=== PATIENT | female | born 1960 | race Caucasian/White ===

== ENCOUNTER 2016-10-09 12:05 | Inpatient (IN) | payer OTHER ==
[~2016-10-09] VITALS: Ht 172.7 cm; Wt 90.9 kg
[~2016-10-09 12:05] MED LIST: CETI5SOL PO; CLON2TAB15 PO; DICY10CA60 PO; GABA600T PO; KEP100S PO; LOSA50TA2 PO; OXYB5TAB7 PO; PHEN100C PO; TOPI25CA PO; VENL75TA2 PO; ZOLP10TA PO; [UNRECOGNIZED DRUG - OTHER]
--- NOTE | 2016-10-09 21:23 | ERA ---
ER Documentation Chief Complaint Date/Time DATE: 10/09/16 TIME: 21:21 Chief Complaint Bloody stool HPI The patient is a 55-year-old female, presenting to the ER because of bloody stool at about 10 AM today with a bowel movement. It was bright red blood. She had history of anal fissure. She denies any hematemesis, complaint of nausea but no vomiting, denies constipation, dysuria. She denies fever, chills , complains of vague dizziness, denies syncope, near syncope. She smokes half a pack a day, denies drinking Past medical history: Hypertension, chronic pain syndrome, panic disorder, depression, anxiety Past surgical history: She had a colonoscopy 3 years ago that showed diverticulosis, right leg surgery ROS All systems reviewed and are negative except as per history of present illness. Medications Home Meds Reported Medications Estrogens Conjugated* (Premarin* Vaginal Cream) 1 Applic Cr, 1 APPLIC VAG TWO TIMES A WEEK, TUB 10/09/16 Zolpidem Tartrate* (Ambien*) 10 Mg Tablet, 10 MG PO QHS Y for INSOMNIA, TAB 10/09/16 Venlafaxine Hcl* (Venlafaxine Hcl*) 100 Mg Tablet, 225 MG PO QAM, TAB 10/09/16 Nicotine* (Nicotine* Patch) 21 mg/day Patch, 1 EACH TD DAILY, PATCH 10/09/16 Lidocaine (Lidocaine) 5 Gm Cream..g., 5 GM TP QID 10/09/16 Diphenoxylate Hcl-Atropine* (Lomotil*) 5 Ml Soln, 5 ML PO Q6H Y for DIARRHEA, ML 10/09/16 Gabapentin* (Gabapentin*) 600 Mg Tablet, 1200 MG PO TID, #180 TAB 10/09/16 Dicyclomine Hcl* (Bentyl*) 10 Mg Capsule, 10 MG PO TID Y for PRN, CAP 10/09/16 Clonazepam* (Clonazepam*) 2 Mg Tablet, 2 MG PO BID, TAB 10/09/16 Cetirizine Hcl* (Cetirizine Hcl*) 10 Mg Tab.chew, 10 MG PO DAILY, #30 TAB 10/09/16 Thiamine* (Vitamin B-1*) 50 Mg Tablet, 50 MG PO DAILY, TAB 10/09/16 Albuterol Sulfate* (Ventolin HFA*) 18 Gm Hfa.aer.ad, 2 PUFF INHALATION Q4H Y for WHEEZING AND SOB, #1 INHALER 10/09/16 Discontinued Reported Medications Cetirizine Hcl* (Cetirizine Hcl*) 5 Mg/5 Ml Solution, 10 MG PO DAILY, #300 ML 12/17/15 Topiramate* (Topamax*) 25 Mg Cap.sprink, 50 MG PO BID, CAP 12/17/15 Dicyclomine Hcl* (Bentyl*) 10 Mg Capsule, 10 MG PO QID, CAP 12/17/15 Oxybutynin Chloride* (Ditropan*) 5 Mg Tab, 5 MG PO TID, TAB 12/17/15 [ferosal 325mg] No Conflict Check 12/17/15 Venlafaxine Hcl* (Effexor XR*) 75 Mg Tab.er.24, 75 MG PO DAILY Y for ANXIETY, TAB.SA 12/17/15 Losartan Potassium* (Cozaar*) 50 Mg Tablet, 50 MG PO DAILY, #30 TAB 12/17/15 Levetiracetam* (Keppra* (Ped)) 100 Mg/Ml Liq, 500 MG PO DAILY 07/04/13 Phenytoin* Sodium Extended (Dilantin*) 100 Mg Capsule, 100 MG PO BID 07/04/13 Zolpidem Tartrate* (Ambien*) 10 Mg Tablet, PO HS 11/19/11 Clonazepam (Klonopin) 2 Mg Tablet, 10 MG PO QID 11/19/11 Gabapentin* (Neurontin*) 600 Mg Tablet, PO TID 11/19/11 Allergies Allergies: Coded Allergies: No Known Drug Allergies (Verified Allergy, Mild, 12/17/15) PMhx/Soc History of Surgery: Yes Anesthesia Reaction: No Hx Neurological Disorder: No Hx Respiratory Disorders: No Hx Cardiac Disorders: Yes (hypertension) Hx Psychiatric Problems: No Hx Miscellaneous Medical Probl: No Hx Alcohol Use: Yes (socially) Hx Substance Use: No Hx Tobacco Use: No Smoking Status: Current every day smoker Physical Exam Vitals Vital Signs Date Time Temp Pulse Resp B/P Pulse Ox O2 Delivery O2 Flow Rate FiO2 10/09/16 23:17 98.0 83 20 108/54 94 Room Air 10/09/16 12:30 98.5 90 21 118/73 98 Physical Exam Const: No acute distress. Head: Atraumatic. Eyes: Normal Conjunctiva. ENT: Normal External Ears, Nose and Mouth. Neck: Full range of motion. No meningismus. Resp: Clear to auscultation bilaterally. Cardio: Regular rate and rhythm, no murmurs. Abd: Soft, non distended, normal bowel sounds, non tender. Skin: No petechiae or rashes. Back: No midline or flank tenderness. Ext: No cyanosis, or edema. Neur: Awake and alert. No focal deficit Psych: Normal Mood and Affect. Rectal: Positive for bright red stool Result Diagram: 10/09/16221410/09/162214 Results 24 hrs Laboratory Tests Test 10/09/16 22:15 Activated Partial Thromboplast Time 28.6Sec Alanine Aminotransferase (ALT/SGPT) 73IU/L Albumin 3.7g/dl Albumin/Globulin Ratio 1.32 Alkaline Phosphatase 99IU/L Anion Gap 18 Aspartate Amino Transf (AST/SGOT) 142IU/L Basophils # 0.010^3/ul Basophils % 0.2% Blood Morphology Comment Blood Urea Nitrogen 11mg/dl Calcium Level 8.9mg/dl Carbon Dioxide Level 28mmol/L Chloride Level 101mmol/L Creatinine 0.60mg/dl Direct Bilirubin 0.00mg/dl Eosinophils # 0.310^3/ul Eosinophils % 3.3% Globulin 2.80g/dl Glucose Level 105mg/dl Hematocrit 38.1% Hemoglobin 13.0g/dl INR International Normalized Ratio 0.83 Indirect Bilirubin 0.0mg/dl Lymphocytes # 2.510^3/ul Lymphocytes % 31.4% Mean Corpuscular Hemoglobin 35.5pg Mean Corpuscular Hemoglobin Concent 34.2g/dl Mean Corpuscular Volume 103.8fl Mean Platelet Volume 8.2fl Monocytes # 0.510^3/ul Monocytes % 6.7% Neutrophils # 4.610^3/ul Neutrophils % 58.4% Nucleated Red Blood Cells # 0.010^3/ul Nucleated Red Blood Cells % 0.0/100WBC Platelet Count 67149^3/UL Potassium Level 4.0mmol/L Prothrombin Time 11.4Sec Prothrombin Time Ratio 0.9 Red Blood Count 3.6710^6/ul Red Cell Distribution Width 13.9% Sodium Level 143mmol/L Total Bilirubin 0.0mg/dl Total Protein 6.5g/dl Troponin I < 0.012ng/ml White Blood Count 7.810^3/ul Current Medications Medications (Trade) Dose Ordered Sig/[facility] Route PRN Reason Start Time Stop Time Status Last Admin Dose Admin Ondansetron HCl (Zofran Inj) 4 mg ONCE STAT IV 10/09/16 21:31 10/09/16 21:33 DC 10/09/16 22:20 Morphine Sulfate 2 mg 2 mg ONCE STAT IV 10/09/16 21:31 10/09/16 21:33 DC 10/09/16 22:20 Sodium Chloride 1,000 ml @ 1,000 mls/hr Q1H ONCE IV 10/09/16 22:00 10/09/16 22:59 DC 10/09/16 22:19 Sodium Chloride (NS) 1,000 ml @ 1,000 mls/hr Q1H ONCE IV 10/10/16 00:00 10/10/16 00:59 Morphine Sulfate (morphine) 2 mg ONCE ONCE IV 10/10/16 00:00 10/10/16 00:01 10/09/16 23:50 Procedures/MDM EKG: Read by emergency physician Rate/Rhythm: Normal Sinus Rhythm 79 beats per min QRS, ST, T-waves: No ST elevation, no T wave inversion, low voltage Impression: Abnormal EKG Abdominal pelvic CT is pending MEDICAL MAKING DECISION: The patient is a 55-year-old female, presenting with acute hematochezia. She was treated with morphine 2 mg IV 2 for pain, Zofran 4 mg IV 2 for nausea, 1 L normal saline 2. The differential diagnoses considered include but are not limited to carcinoma, polyp, hemorrhoid, fissure , diverticulosis, angiodysplasia, gastritis, peptic ulcer disease, esophageal varices, Maryuri-Olguin tear. Departure Diagnosis: Primary Impression: GI bleed Additional Impression: Transaminitis Condition: Stable Comments I discussed the findings with the patient. I discussed the patient with the on- call hospitalist Dr Alexander who was made aware of the lab, the treatment, the patient condition, the pending CT. The patient is admitted to medical surgery bed at 11:30 PM LEIGH CARCAMO MD Oct 09, 2016 21:23
[2016-10-09] MEDS ORDERED: morphine 2 MG INJ IV STA (21:31)
[2016-10-09] MEDS ORDERED: ONDANSETRON 4 MG INJ IV STA (21:31)
[2016-10-09] MEDS ORDERED: SOD CHLORIDE 0.9% 1,000 ML IV ONE (22:00)
[2016-10-09] MEDS ORDERED: ALBU18HF INHALATION (22:48)
[2016-10-09] MEDS ORDERED: THIA50TA10 PO (22:48)
[2016-10-09] MEDS ORDERED: CETI10TA34 PO (22:48)
[2016-10-09] MEDS ORDERED: CLON2TAB3 PO (22:49)
[2016-10-09] MEDS ORDERED: DICY10CA60 PO (22:50)
[2016-10-09] MEDS ORDERED: GABA-526 PO (22:50)
[2016-10-09] MEDS ORDERED: UDLOM PO (22:51)
[2016-10-09] MEDS ORDERED: LIDO5CRE18 TP (22:51)
[2016-10-09] MEDS ORDERED: NICO1PAT6 TD (22:51)
[2016-10-09] MEDS ORDERED: VENL100T PO (22:52)
[2016-10-09] MEDS ORDERED: PREMVAG VAG (22:53)
[2016-10-09] MEDS ORDERED: ZOLP10TA PO (22:53)
[2016-10-09 22:57] LABS: BASOPHILS % 0.2 % (0.0-2.0); EOSINOPHILS # 0.3 10^3/ul (0.0-0.5); EOSINOPHILS % 3.3 % (0.0-7.0); HEMATOCRIT 38.1 % (37.0-47.0); LYMPHOCYTES # 2.5 10^3/ul (0.8-2.9); LYMPHOCYTES % 31.4 % (15.0-51.0); MEAN CORPUSCULAR HEMOGLOBIN 35.5 pg (29.0-33.0); MEAN CORPUSCULAR HGB CONC 34.2 g/dl (32.0-37.0); MEAN CORPUSCULAR VOLUME 103.8 fl (82.0-101.0); MEAN PLATELET VOLUME 8.2 fl (7.4-10.4); MONOCYTE # 0.5 10^3/ul (0.3-0.9); MONOCYTES % 6.7 % (0.0-11.0); NEUTROPHIL # 4.6 10^3/ul (1.6-7.5); NEUTROPHILS % 58.4 % (39.0-77.0); PLATELET COUNT 140 10^3/UL (140-440); RED BLOOD COUNT 3.67 10^6/ul (4.20-5.40); RED CELL DISTRIBUTION WIDTH 13.9 % (11.5-14.5); UNCORRECTED WBC 7.8 10^3/ul (4.8-10.8); WHITE BLOOD COUNT 7.8 10^3/ul (4.8-10.8)
[2016-10-09 23:02] LABS: CONDITION 1; LH ANALYZER COMMENTS 1
[2016-10-09 23:06] LABS: INR 0.83; PROTIME 11.4 Sec (12.2-14.2); PT RATIO 0.9
[2016-10-09 23:07] LABS: ALBUMIN 3.7 g/dl (3.3-4.9); PARTIAL THROMBOPLASTIN TIME 28.6 Sec (25.0-35.0)
[2016-10-09 23:08] LABS: CHLORIDE 101 mmol/L (97-110); SODIUM 143 mmol/L (135-144)
[2016-10-09 23:10] LABS: ANION GAP 18 (8-16); ASPARTATE AMINO TRANSFERASE 142 IU/L (15-46); CARBON DIOXIDE 28 mmol/L (21-31)
[2016-10-09 23:11] LABS: ALANINE AMINOTRANSFERASE 73 IU/L (13-69); ALBUMIN/GLOBULIN RATIO 1.32; ALKALINE PHOSPHATASE 99 IU/L (42-121); BLOOD UREA NITROGEN 11 mg/dl (7-20); CALCIUM 8.9 mg/dl (8.4-10.2); GLUCOSE 105 mg/dl (70-220); TOTAL PROTEIN 6.5 g/dl (6.1-8.1)
[2016-10-09 23:17] VITALS: TEMP 98
[2016-10-09 23:23] LABS: TROPONIN-I < 0.012 ng/ml (0.00-0.12)
[2016-10-10] MEDS ORDERED: morphine 2 MG INJ IV ONE
[2016-10-10] MEDS ORDERED: SOD CHLORIDE 0.9% 1,000 ML IV ONE
--- NOTE | 2016-10-10 00:29 | RADRPT ---
PROCEDURE: CT Abdomen and Pelvis without contrast. CLINICAL INDICATION: Rectal bleeding. TECHNIQUE: A CT scan of the abdomen and pelvis was performed without intravenous contrast. Archer l and sagittal reformatted images were generated. Images were reviewed on a high-resolution PACS wor kstation. CTDIvol: 21.61 mGy. DLP: 1296.56 mGy-cm. COMPARISON: None. FINDINGS: There is mild atelectasis in both lower lobes. Evaluation of the abdominal and pelvic viscera is limited by the lack of oral and intravenous contra st. The liver is unremarkable. The gallbladder is normal in appearance. The common bile duct is not dila carly. The spleen is not enlarged. No pancreatic lesion is identified and there is no pancreatic ducta l dilatation. The adrenal glands are unremarkable. The kidneys are normal in size. There is no perinephric fat stranding. No hydronephrosis is seen. No urinary stone is identified. The small and large bowel are normal in caliber. There is no bowel wall thickening.There is mild sig moid colon diverticulosis. The appendix is normal. The urinary bladder is unremarkable. The pelvic organs are within normal limits. No lymphadenopathy is identified. There is no ascites. No pneumoperitoneum is seen. There are minima l arterial calcifications. No suspicious osseous lesion is idenitified. IMPRESSION: 1. No inflammation, mass, or lymphadenopathy. 2. Mild sigmoid colon diverticulosis. RPTAT: HTAR .Kemar Corbett MD, Date Time Electronically viewed and signed by .Kemar Corbett MD, MD on 10/10/2016 00:29 .R/
[2016-10-10 00:50] VITALS: BP 110/55; RESP 16
[2016-10-10 00:55] VITALS: Ht 172.7 cm; Wt 90.9 kg
[2016-10-10] MEDS ORDERED: GABAPENTIN 300 MG CAP PO PRN (01:30)
[2016-10-10] MEDS ORDERED: DIPHENOXYLATE/ATROPINE 5 ML CUP PO PRN (01:30)
[2016-10-10] MEDS ORDERED: DICYCLOMINE 10 MG CAP PO PRN (01:30)
[2016-10-10] MEDS ORDERED: ALBUTEROL HFA 8 GM INHALER INH PRN (01:30)
[2016-10-10] MEDS: ACETAMINOPHEN 325 MG TAB PO PRN ×2 (02:24→20:22)
[2016-10-10] MEDS ORDERED: ONDANSETRON 4 MG INJ IV PRN (02:30)
[2016-10-10] MEDS: PANTOPRAZOLE 40 MG INJ IV SCH (05:30)
--- NOTE | 2016-10-10 06:08 | HP ---
Date/Time of Note Date/Time of Note DATE: 10/10/16 TIME: 05:59 Assessment/Plan VTE Prophylaxis VTE Prophylaxis Intervention: SCD's Lines/Catheters IV Catheter Type (from [facility]): Saline Lock Urinary Cath still in place: No Assessment/Plan Assessment/Plan IMPRESSION 1. BRBPR, probably from bleeding diverticulosis 2. Hypertension 3. Hx of PE 4. Hx of Seizure 5. Sigmoid diverticulosis 6. Hx of Gastritis 7. Chronic pain syndrome 8. Hx of Panic disorder, depression and anxiety PLAN Monitor Hgb closely PPI Place GI consult Cont home meds with adjustment as needed HPI/ROS Admit Date/Time Admit Date/Time Oct 09, 2016 at 23:46 Hx of Present Illness The patient is a 55-year-old female with hx of Hypertension, PE, Seizure, diverticulosis, Gastritis, hiatal hernia, chronic pain syndrome, panic disorder , depression and anxiety presented to the ER because of bloody stool at about 10 AM today with a bowel movement. It was bright red blood. She had history of anal fissure. She denies any hematemesis, complaint of nausea but no vomiting, denies constipation, dysuria. She denies fever, chills, complains of vague dizziness, denies syncope, near syncope. She had EGD here in 2013 that showed Gastritis and Hiatal hernia. She also said she had colonoscopy 3 years ago that showed diverticulosis. In the ER, CTa/p showed Mild sigmoid colon diverticulosis. Labs showed hgb of 13. AST 142 and ALT 72. PMH/Family/Social Past Medical History Medical History: hypertension, other (Gastritis, Diverticulosis, Seizure, PE) Past Surgical History Past Surgical Hx: other (uterine surgery) Social History Alcohol Use: occasionally Smoking Status: Current every day smoker Drug Use: none Exam/Review of Systems Vital Signs Vitals Vital Signs Date Time Temp Pulse Resp B/P Pulse Ox O2 Delivery O2 Flow Rate FiO2 10/10/16 00:50 98.9 80 16 110/55 98 10/10/16 00:06 Room Air Intake and Output 10/09/16 10/09/16 10/10/16 15:00 23:00 07:00 Intake Total 1000 ml Balance 1000 ml Exam Constitutional: alert, oriented, well developed Head: atraumatic, normocephalic Eyes: EOMI, PERRL Neck: non-tender, supple Respiratory: clear to auscultation, normal air movement Cardiovascular: nl pulses, regular rate and rhythm Gastrointestinal: non-tender, soft Extremities: normal pulses Labs Result Diagram: 10/09/16221410/09/162214 Medications Medications Current Medications Clonazepam (Klonopin) 2 mg BID PO ; Start 10/10/16 at 09:00 Dicyclomine HCl (Bentyl) 10 mg TID PRN PO PRN; Start 10/10/16 at 01:30 Diphenoxylate HCl/ Atropine (Lomotil Liquid Cup) 5 ml Q6H PRN PO DIARRHEA; Start 10/10/16 at 01:30 Estrogens Conjugated (Premarin Vaginal Cr) 1 applic HS VAG ; Start 10/10/16 at 21 :00 Gabapentin (Neurontin) 1,200 mg TID PRN PO PAIN; Start 10/10/16 at 01:30 Nicotine (Nicoderm 21 Mg/ 24hr) 21 patch DAILY TRANSDERM ; Start 10/10/16 at 09: 00 Venlafaxine HCl (Effexor Xr) 225 mg QAM PO ; Start 10/10/16 at 09:00 Acetaminophen (Tylenol Tab) 650 mg Q6H PRN PO PAIN AND OR ELEVATED TEMP Last administered on 10/10/16 02:24; Admin Dose 650 MG; Start 10/10/16 at 01:30 Influenza Virus Vaccine (Fluzone) 0.5 ml ONCE ONCE IM* ; Start 10/12/16 at 09:00 ; Stop 10/12/16 at 09:01 Pantoprazole (Protonix Iv) 40 mg DAILY@06 IV Last administered on 10/10/16 05: 30; Admin Dose 40 MG; Start 10/10/16 at 06:00 Ondansetron HCl (Zofran Inj) 4 mg Q6H PRN IV NAUSEA AND/OR VOMITING; Start 10/10 at 02:30 MARIAJOSE BAIN MD Oct 10, 2016 06:08
[2016-10-10 07:02] LABS: ALBUMIN 2.8 g/dl (3.3-4.9)
[2016-10-10 07:03] LABS: POTASSIUM 3.7 mmol/L (3.5-5.1)
[2016-10-10 07:05] LABS: ALBUMIN/GLOBULIN RATIO 1.21; CREATININE 0.64 mg/dl (0.44-1.00); TOTAL PROTEIN 5.1 g/dl (6.1-8.1)
[2016-10-10 07:06] LABS: CALCIUM 7.9 mg/dl (8.4-10.2)
[2016-10-10 08:05] VITALS: BP 99/64; RESP 18
[2016-10-10] MEDS: VENLAFAXINE (XR) 75 MG CAP PO SCH (09:03)
[2016-10-10] MEDS: NICOTINE (21 MG/24 HR) PATCH TRANSDERM SCH (09:03)
[2016-10-10] MEDS: clonAZEPAM 0.5 MG TAB PO SCH ×2 (09:03→20:24)
[2016-10-10 11:50] LABS: BASOPHILS % 0.6 % (0.0-2.0); EOSINOPHILS % 3.9 % (0.0-7.0); HEMATOCRIT 34.2 % (37.0-47.0); HEMOGLOBIN 11.2 g/dl (12.0-16.0); LYMPHOCYTES % 35.5 % (15.0-51.0); MEAN CORPUSCULAR HEMOGLOBIN 35.3 pg (29.0-33.0); MEAN CORPUSCULAR HGB CONC 32.7 g/dl (32.0-37.0); MEAN CORPUSCULAR VOLUME 107.9 fl (82.0-101.0); MEAN PLATELET VOLUME 10.6 fl (7.4-10.4); MONOCYTES % 7.5 % (0.0-11.0); NEUTROPHILS % 52.1 % (39.0-77.0); PLATELET COUNT 112 10^3/UL (140-440); RED BLOOD COUNT 3.17 10^6/ul (4.20-5.40); RED CELL DISTRIBUTION WIDTH 13.2 % (11.5-14.5); UNCORRECTED WBC 5.1 10^3/ul (4.8-10.8); WHITE BLOOD COUNT 5.1 10^3/ul (4.8-10.8)
[2016-10-10 11:51] LABS: EOSINOPHILS # 0.2 10^3/ul (0.0-0.5); LYMPHOCYTES # 1.8 10^3/ul (0.8-2.9); MONOCYTE # 0.4 10^3/ul (0.3-0.9); NEUTROPHIL # 2.6 10^3/ul (1.6-7.5)
[2016-10-10] MEDS ORDERED: morphine 10 MG INJ IM PRN (14:00)
[2016-10-10] MEDS ORDERED: CARISOPRODOL 350 MG TAB PO PRN (14:30)
[2016-10-10] MEDS: CARISOPRODOL 350 MG TAB PO SCH (15:10)
[2016-10-10] MEDS: morphine 4 MG/ML VIAL IV PRN (18:53)
[2016-10-10 19:56] VITALS: BP 128/78; RESP 16
[2016-10-10] MEDS: GABAPENTIN 300 MG CAP PO SCH (20:23)
[2016-10-10] MEDS: ESTROGENS CONJUGATED 42.5 GM VAG CR VAG SCH (20:27)
[2016-10-10] MEDS: ZOLPIDEM 5 MG TAB PO PRN (22:04)
[2016-10-10] MEDS: LORATADINE 10 MG TAB PO SCH (22:57)
[2016-10-11] MEDS: morphine 4 MG/ML VIAL IV PRN ×4 (00:55→21:12)
[2016-10-11] MEDS: PANTOPRAZOLE 40 MG INJ IV SCH (05:20)
[2016-10-11 06:49] LABS: POTASSIUM 4.1 mmol/L (3.5-5.1)
[2016-10-11 06:51] LABS: CREATININE 0.62 mg/dl (0.44-1.00)
[2016-10-11 06:52] LABS: CALCIUM 8.1 mg/dl (8.4-10.2)
[2016-10-11 06:53] LABS: MAGNESIUM 2.1 mg/dl (1.7-2.5)
[2016-10-11 07:07] LABS: EOSINOPHILS # 0.2 10^3/ul (0.0-0.5); HEMOGLOBIN 11.8 g/dl (12.0-16.0); MONOCYTE # 0.4 10^3/ul (0.3-0.9)
[2016-10-11 07:10] LABS: CONDITION 1; LH ANALYZER COMMENTS 1
[2016-10-11 07:16] LABS: UNCORRECTED WBC 4.4 10^3/ul (4.8-10.8)
[2016-10-11 07:25] LABS: BASOPHILS % 0.4 % (0.0-2.0); EOSINOPHILS % 3.6 % (0.0-7.0); HEMATOCRIT 34.1 % (37.0-47.0); LYMPHOCYTES # 2.1 10^3/ul (0.8-2.9); LYMPHOCYTES % 47.6 % (15.0-51.0); MEAN CORPUSCULAR HEMOGLOBIN 35.9 pg (29.0-33.0); MEAN CORPUSCULAR HGB CONC 34.7 g/dl (32.0-37.0); MEAN CORPUSCULAR VOLUME 103.4 fl (82.0-101.0); MEAN PLATELET VOLUME 8.2 fl (7.4-10.4); MONOCYTES % 8.8 % (0.0-11.0); NEUTROPHIL # 1.8 10^3/ul (1.6-7.5); NEUTROPHILS % 39.6 % (39.0-77.0); PLATELET COUNT 110 10^3/UL (140-440); RED BLOOD COUNT 3.29 10^6/ul (4.20-5.40); RED CELL DISTRIBUTION WIDTH 13.5 % (11.5-14.5); WHITE BLOOD COUNT 4.4 10^3/ul (4.8-10.8)
[2016-10-11 08:01] VITALS: BP 134/81; RESP 19
[2016-10-11] MEDS: LORATADINE 10 MG TAB PO SCH (08:21)
[2016-10-11] MEDS: clonAZEPAM 0.5 MG TAB PO SCH ×2 (08:21→14:08)
[2016-10-11] MEDS: GABAPENTIN 300 MG CAP PO SCH ×3 (08:21→20:32)
[2016-10-11] MEDS: VENLAFAXINE (XR) 75 MG CAP PO SCH (08:21)
[2016-10-11] MEDS: CARISOPRODOL 350 MG TAB PO SCH (08:21)
[2016-10-11] MEDS: NICOTINE (21 MG/24 HR) PATCH TRANSDERM SCH (08:23)
[2016-10-11] MEDS ORDERED: CARISOPRODOL 350 MG TAB PO PRN (09:00)
--- NOTE | 2016-10-11 17:13 | CONS ---
Date/Time of Note Date/Time of Note DATE: 10/11/16 TIME: 17:13 Assessment/Plan Assessment/Plan Additional Assessment/Plan Rectal bleed * Evaluate for C. difficile infection versus acute diverticulitis versus other etiology * Colonoscopy with alternative prep in process, patient advised of R/BE/A of procedure and she is agreeable to proceed * Restart clear diet * Antibiotic treatment for possible diverticulitis * C. difficile stool * Monitor H&H every 6 hours, transfuse 2 units for hemoglobin less than 7.5 Hypertension Seizure Gastritis * PPI therapy Chronic pain syndrome Panic disorder Depression Anxiety Further recommendations depend on clinical course Patient seen in collaboration with 's Consultation Date/Type/Reason Admit Date/Time Oct 09, 2016 at 23:46 Type of Consultation: Gastroenterology Reason for Consultation Rectal bleeding Hx of Present Illness Pt states that symptoms started this last Wednesday. Pt reports having a bowel movement with copious amounts of blood. Patient also reports diffuse abdominal pain that is worse at epigastrium, left lower quadrant, and left upper quadrant. Patient reports colonoscopy 3 years ago with diverticulosis but denies any previous flares. Patient denies nausea, vomiting, fever, chills, travel outside the [place], sick contacts. Patient has past medical history of Hypertension, PE, Seizure, diverticulosis, Gastritis, hiatal hernia, chronic pain syndrome, panic disorder, depression and anxiety. Patient advised of risks /benefits/alternatives to procedure and she is agreeable to proceed with colonoscopy. Past Medical History Medical History: hypertension, other (Gastritis, Diverticulosis, Seizure, PE) Past Surgical History Past Surgical Hx: other (uterine surgery) Social History Alcohol Use: occasionally Smoking Status: Current every day smoker Drug Use: none Exam/Review of Systems Vital Signs Vitals Vital Signs Date Time Temp Pulse Resp B/P Pulse Ox O2 Delivery O2 Flow Rate FiO2 10/11/16 08:01 98.1 70 19 134/81 94 10/10/16 00:06 Room Air Intake and Output 10/10/16 10/10/16 10/11/16 15:00 23:00 07:00 Intake Total 1320 ml 1200 ml Balance 1320 ml 1200 ml Exam Constitutional: alert, obese, oriented, well developed Head: atraumatic Eyes: EOMI, nl conjunctiva, nl lids, nl sclera ENMT: nl external ears & nose, nl lips & teeth, nl nasal mucosa & septum Respiratory: normal air movement Cardiovascular: regular rate and rhythm Gastrointestinal: soft, tender (Epigastric, left upper and left lower quadrant tenderness) Musculoskeletal: nl extremities to inspection Neurological: EQUINE MANAGER II-XII intact Results Result Diagram: 10/11/1652510/11/16525 Results 24 hrs Laboratory Tests Test 10/11/16 05:26 Anion Gap 11 Basophils # 0.0 Basophils % 0.4 Blood Morphology Comment Blood Urea Nitrogen 9 Calcium Level 8.1 L Carbon Dioxide Level 31 Chloride Level 104 Creatinine 0.62 Eosinophils # 0.2 Eosinophils % 3.6 Glucose Level 82 Hematocrit 34.1 L Hemoglobin 11.8 L Lymphocytes # 2.1 Lymphocytes % 47.6 Magnesium Level 2.1 Mean Corpuscular Hemoglobin 35.9 H Mean Corpuscular Hemoglobin Concent 34.7 Mean Corpuscular Volume 103.4 H Mean Platelet Volume 8.2 # Monocytes # 0.4 Monocytes % 8.8 Neutrophils # 1.8 Neutrophils % 39.6 Nucleated Red Blood Cells # 0.0 Nucleated Red Blood Cells % 0.0 Platelet Count 110 L Potassium Level 4.1 Red Blood Count 3.29 L Red Cell Distribution Width 13.5 Sodium Level 142 White Blood Count 4.4 L Medications Medications Current Medications Dicyclomine HCl (Bentyl) 10 mg TID PRN PO PRN; Start 10/10/16 at 01:30 Diphenoxylate HCl/ Atropine (Lomotil Liquid Cup) 5 ml Q6H PRN PO DIARRHEA; Start 10/10/16 at 01:30 Estrogens Conjugated (Premarin Vaginal Cr) 1 applic HS VAG ; Start 10/10/16 at 21 :00 Nicotine (Nicoderm 21 Mg/ 24hr) 1 patch DAILY TRANSDERM Last administered on 08:23; Admin Dose 1 PATCH; Start 10/10/16 at 09:00 Venlafaxine HCl (Effexor Xr) 225 mg QAM PO Last administered on 10/11/16 08:21 ; Admin Dose 225 MG; Start 10/10/16 at 09:00 Acetaminophen (Tylenol Tab) 650 mg Q6H PRN PO PAIN AND OR ELEVATED TEMP Last administered on 10/10/16 20:22; Admin Dose 650 MG; Start 10/10/16 at 01:30 Influenza Virus Vaccine (Fluzone) 0.5 ml ONCE ONCE IM* ; Start 10/12/16 at 09:00 ; Stop 10/12/16 at 09:01 Pantoprazole (Protonix Iv) 40 mg DAILY@06 IV Last administered on 10/11/16 05: 20; Admin Dose 40 MG; Start 10/10/16 at 06:00 Ondansetron HCl (Zofran Inj) 4 mg Q6H PRN IV NAUSEA AND/OR VOMITING; Start 10/10 at 02:30 Gabapentin (Neurontin) 1,200 mg TID PO Last administered on 10/11/16 14:07; Admin Dose 1,200 MG; Start 10/10/16 at 21:00 Morphine Sulfate (morphine) 4 mg Q6H PRN IV PAIN LEVEL 4-7 Last administered on 10/11/16 14:06; Admin Dose 4 MG; Start 10/10/16 at 15:00 Carisoprodol (Soma) 350 mg DAILY PO Last administered on 10/11/16 08:21; Admin Dose 350 MG; Start 10/10/16 at 15:00 Loratadine (Claritin) 10 mg DAILY PO Last administered on 10/11/16 08:21; Admin Dose 10 MG; Start 10/10/16 at 22:30 Clonazepam (Klonopin) 2 mg PO Last administered on 10/11/16 14:08; Admin Dose 2 MG; Start 10/11/16 at 13:56 ADALGISA VAZQUZE Oct 11, 2016 17:13
[2016-10-11] MEDS: LACTULOSE 30ML CUP PO SCH ×3 (18:39→21:54)
--- NOTE | 2016-10-11 18:54 | PN ---
Date/Time of Note Date/Time of Note DATE: 10/11/16 TIME: 18:47 Assessment/Plan VTE Prophylaxis VTE Prophylaxis Intervention: SCD's Lines/Catheters IV Catheter Type (from Nrs): Saline Lock Urinary Cath still in place: No Assessment/Plan Assessment/Plan IMPRESSION 1. BRBPR, probably from bleeding diverticulosis 2. Hypertension: controlled 3. Hx of PE 4. Hx of Seizure 5. Sigmoid diverticulosis 6. Hx of Gastritis 7. Chronic pain syndrome 8. Hx of Panic disorder, depression and anxiety PLAN Monitor Hgb closely Continue PPI Advance diet for now and f/u GI plan Cont home meds with adjustment as needed Subjective 24 Hr Interval Summary Free Text/Dictation hungry / no further bleeding so far Exam/Review of Systems Vital Signs Vitals Vital Signs Date Time Temp Pulse Resp B/P Pulse Ox O2 Delivery O2 Flow Rate FiO2 10/11/16 08:01 98.1 70 19 134/81 94 10/10/16 00:06 Room Air Intake and Output 10/10/16 10/10/16 10/11/16 15:00 23:00 07:00 Intake Total 1320 ml 1200 ml Balance 1320 ml 1200 ml Exam Constitutional: alert, oriented, well developed Head: atraumatic, normocephalic Eyes: EOMI, PERRL Neck: non-tender, supple Respiratory: clear to auscultation, normal air movement Cardiovascular: nl pulses, regular rate and rhythm Gastrointestinal: non-tender, soft Extremities: normal pulses Results Result Diagram: 10/11/16 0510/11/16 0526 Results 24 hrs Laboratory Tests Test 10/11/16 05:26 Anion Gap 11 Basophils # 0.0 Basophils % 0.4 Blood Morphology Comment Blood Urea Nitrogen 9 Calcium Level 8.1 L Carbon Dioxide Level 31 Chloride Level 104 Creatinine 0.62 Eosinophils # 0.2 Eosinophils % 3.6 Glucose Level 82 Hematocrit 34.1 L Hemoglobin 11.8 L Lymphocytes # 2.1 Lymphocytes % 47.6 Magnesium Level 2.1 Mean Corpuscular Hemoglobin 35.9 H Mean Corpuscular Hemoglobin Concent 34.7 Mean Corpuscular Volume 103.4 H Mean Platelet Volume 8.2 # Monocytes # 0.4 Monocytes % 8.8 Neutrophils # 1.8 Neutrophils % 39.6 Nucleated Red Blood Cells # 0.0 Nucleated Red Blood Cells % 0.0 Platelet Count 110 L Potassium Level 4.1 Red Blood Count 3.29 L Red Cell Distribution Width 13.5 Sodium Level 142 White Blood Count 4.4 L Medications Medications Current Medications Dicyclomine HCl (Bentyl) 10 mg TID PRN PO PRN; Start 10/10/16 at 01:30 Diphenoxylate HCl/ Atropine (Lomotil Liquid Cup) 5 ml Q6H PRN PO DIARRHEA; Start 10/10/16 at 01:30 Estrogens Conjugated (Premarin Vaginal Cr) 1 applic HS VAG ; Start 10/10/16 at 21 :00 Nicotine (Nicoderm 21 Mg/ 24hr) 1 patch DAILY TRANSDERM Last administered on 08:23; Admin Dose 1 PATCH; Start 10/10/16 at 09:00 Venlafaxine HCl (Effexor Xr) 225 mg QAM PO Last administered on 10/11/16 08:21 ; Admin Dose 225 MG; Start 10/10/16 at 09:00 Acetaminophen (Tylenol Tab) 650 mg Q6H PRN PO PAIN AND OR ELEVATED TEMP Last administered on 10/10/16 20:22; Admin Dose 650 MG; Start 10/10/16 at 01:30 Influenza Virus Vaccine (Fluzone) 0.5 ml ONCE ONCE IM* ; Start 10/12/16 at 09:00 ; Stop 10/12/16 at 09:01 Pantoprazole (Protonix Iv) 40 mg DAILY@06 IV Last administered on 10/11/16 05: 20; Admin Dose 40 MG; Start 10/10/16 at 06:00 Ondansetron HCl (Zofran Inj) 4 mg Q6H PRN IV NAUSEA AND/OR VOMITING; Start 10/10 at 02:30 Gabapentin (Neurontin) 1,200 mg TID PO Last administered on 10/11/16 14:07; Admin Dose 1,200 MG; Start 10/10/16 at 21:00 Morphine Sulfate (morphine) 4 mg Q6H PRN IV PAIN LEVEL 4-7 Last administered on 10/11/16 14:06; Admin Dose 4 MG; Start 10/10/16 at 15:00 Carisoprodol (Soma) 350 mg DAILY PO Last administered on 10/11/16 08:21; Admin Dose 350 MG; Start 10/10/16 at 15:00 Loratadine (Claritin) 10 mg DAILY PO Last administered on 10/11/16 08:21; Admin Dose 10 MG; Start 10/10/16 at 22:30 Clonazepam (Klonopin) 2 mg 09,13 PO Last administered on 10/11/16 14:08; Admin Dose 2 MG; Start 10/11/16 at 13:56 Lactulose (Enulose) 20 gm Q2H PO Last administered on 10/11/16 18:39; Admin Dose 20 GM; Start 10/11/16 at 18:00; Stop 10/12/16 at 02:01 Metronidazole 500 mg 500 mg Q8 PO ; Start 10/11/16 at 20:00 Ceftriaxone Sodium (Rocephin) 50 ml @ 100 mls/hr Q24H IVPB ; Start 10/11/16 at 20:00 SOHEILA WILKINS Oct 11, 2016 18:54
[2016-10-11 20:00] VITALS: BP 142/86; RESP 20
[2016-10-11] MEDS: metroNIDAZOLE 500 MG TAB PO SCH (20:32)
[2016-10-11] MEDS: ESTROGENS CONJUGATED 42.5 GM VAG CR VAG SCH (20:36)
[2016-10-11] MEDS: CEFTRIAXONE 1 GM/50 ML (PMX) 50 ML IVPB SCH (21:14)
[2016-10-11] MEDS: ZOLPIDEM 5 MG TAB PO PRN (21:54)
[2016-10-12] VITALS (12 sets, daily range): BP systolic 129–160; BP diastolic 63–98; PULSE 68–74; RESP 16–27
[2016-10-12] MEDS: LACTULOSE 30ML CUP PO SCH ×2 (00:08→02:23)
[2016-10-12] MEDS: metroNIDAZOLE 500 MG TAB PO SCH ×3 (05:26→21:21)
[2016-10-12] MEDS: PANTOPRAZOLE 40 MG INJ IV SCH (05:26)
[2016-10-12] MEDS: morphine 4 MG/ML VIAL IV PRN ×3 (05:26→20:06)
[2016-10-12 06:18] LABS: BASOPHILS % 0.2 % (0.0-2.0); EOSINOPHILS # 0.2 10^3/ul (0.0-0.5); EOSINOPHILS % 3.5 % (0.0-7.0); HEMATOCRIT 34.3 % (37.0-47.0); LYMPHOCYTES # 2.2 10^3/ul (0.8-2.9); LYMPHOCYTES % 39.9 % (15.0-51.0); MEAN CORPUSCULAR HEMOGLOBIN 35.8 pg (29.0-33.0); MEAN CORPUSCULAR HGB CONC 34.9 g/dl (32.0-37.0); MEAN CORPUSCULAR VOLUME 102.8 fl (82.0-101.0); MEAN PLATELET VOLUME 7.6 fl (7.4-10.4); MONOCYTE # 0.4 10^3/ul (0.3-0.9); MONOCYTES % 7.9 % (0.0-11.0); NEUTROPHIL # 2.7 10^3/ul (1.6-7.5); NEUTROPHILS % 48.5 % (39.0-77.0); PLATELET COUNT 137 10^3/UL (140-440); RED BLOOD COUNT 3.34 10^6/ul (4.20-5.40); RED CELL DISTRIBUTION WIDTH 13.1 % (11.5-14.5); UNCORRECTED WBC 5.5 10^3/ul (4.8-10.8); WHITE BLOOD COUNT 5.5 10^3/ul (4.8-10.8)
[2016-10-12 06:25] LABS: CONDITION 1; LH ANALYZER COMMENTS 1
[2016-10-12 06:31] LABS: INR 0.93; PROTIME 12.5 Sec (12.2-14.2)
[2016-10-12 06:32] LABS: PARTIAL THROMBOPLASTIN TIME 29.5 Sec (25.0-35.0)
[2016-10-12 06:49] LABS: POTASSIUM 3.6 mmol/L (3.5-5.1)
[2016-10-12 06:51] LABS: CREATININE 0.56 mg/dl (0.44-1.00)
[2016-10-12 06:52] LABS: CALCIUM 8.4 mg/dl (8.4-10.2)
[2016-10-12] MEDS: VENLAFAXINE (XR) 75 MG CAP PO SCH (08:38)
[2016-10-12] MEDS: clonAZEPAM 0.5 MG TAB PO SCH ×2 (08:39→12:09)
[2016-10-12] MEDS: CARISOPRODOL 350 MG TAB PO SCH (08:39)
[2016-10-12] MEDS: LORATADINE 10 MG TAB PO SCH (08:39)
[2016-10-12] MEDS: GABAPENTIN 300 MG CAP PO SCH ×3 (08:39→20:09)
[2016-10-12] MEDS: NICOTINE (21 MG/24 HR) PATCH TRANSDERM SCH (08:41)
[2016-10-12] MEDS ORDERED: INFLUENZA VIRUS VACCINE 0.5 ML (DISPENSING) IM* ONE (09:00)
--- NOTE | 2016-10-12 15:13 | PN ---
Date/Time of Note Date/Time of Note DATE: 10/12/16 TIME: 15:10 Assessment/Plan VTE Prophylaxis VTE Prophylaxis Intervention: SCD's Lines/Catheters IV Catheter Type (from Nrs): Saline Lock Urinary Cath still in place: No Assessment/Plan Assessment/Plan 1. Lower GI bleeding, unclear etiology, follow up with GI 2. Hypertension: controlled 3. Hx of PE 4. Hx of Seizure 5. Sigmoid diverticulosis 6. Hx of Gastritis 7. Chronic pain syndrome 8. Hx of Panic disorder, depression and anxiety Subjective 24 Hr Interval Summary Free Text/Dictation fresh blood in stool last night. still has abdominal pain, mainly lower and left Exam/Review of Systems Vital Signs Vitals Vital Signs Date Time Temp Pulse Resp B/P Pulse Ox O2 Delivery O2 Flow Rate FiO2 10/12/16 07:46 97.7 72 19 129/63 93 10/10/16 00:06 Room Air Intake and Output 10/11/16 10/11/16 10/12/16 15:00 23:00 07:00 Intake Total 2410 ml 1580 ml Balance 2410 ml 1580 ml Exam Constitutional: alert, oriented, well developed Psych: nl mood/affect, no complaints Head: atraumatic, normocephalic Eyes: EOMI, PERRL, nl conjunctiva, nl lids ENMT: mucosa pink and moist, nl external ears & nose, nl lips & teeth, nl nasal mucosa & septum Neck: non-tender, supple Respiratory: clear to auscultation, normal air movement, other, No congested cough, No crackles/rales, No diminished breath sounds, No intercostal retraction, No labored breathing, No respirations, No tactile fremitus, No wheezing Cardiovascular: nl pulses, regular rate and rhythm, No S3, No S4, No bruits, No diastolic murmur, No edema, No gallop, No irregular rhythm, No jugular venous distention (JVD), No murmurs/extra sounds, No rub, No systolic murmur Gastrointestinal: nl liver, spleen, other (tenderness on lower abdomen and left side of abdomen), soft, No ascites, No bowel sounds, No distended, No firm, No hepatomegaly, No mass , No rebound or guarding, No splenomegaly, No surgical scars Musculoskeletal: nl extremities to inspection Neurological: MAINSPRING STRIP GAUGER II-XII intact, nl mental status, nl speech, nl strength Skin: nl turgor, rash or lesions Results Result Diagram: 10/12/16 0510/12/16 0525 Results 24 hrs Laboratory Tests Test 10/12/16 03:20 10/12/16 05:25 Stool Occult Blood NEGATIVE Activated Partial Thromboplast Time 29.5 Anion Gap 14 Basophils # 0.0 Basophils % 0.2 Blood Morphology Comment Blood Urea Nitrogen 8 Calcium Level 8.4 Carbon Dioxide Level 25 Chloride Level 106 Creatinine 0.56 Eosinophils # 0.2 Eosinophils % 3.5 Glucose Level 111 Hematocrit 34.3 L Hemoglobin 12.0 INR International Normalized Ratio 0.93 Lymphocytes # 2.2 Lymphocytes % 39.9 Mean Corpuscular Hemoglobin 35.8 H Mean Corpuscular Hemoglobin Concent 34.9 Mean Corpuscular Volume 102.8 H Mean Platelet Volume 7.6 Monocytes # 0.4 Monocytes % 7.9 Neutrophils # 2.7 Neutrophils % 48.5 Nucleated Red Blood Cells # 0.0 Nucleated Red Blood Cells % 0.0 Platelet Count 137 #L Potassium Level 3.6 Prothrombin Time 12.5 Prothrombin Time Ratio 1.0 Red Blood Count 3.34 L Red Cell Distribution Width 13.1 Sodium Level 141 White Blood Count 5.5 # Medications Medications Current Medications Dicyclomine HCl (Bentyl) 10 mg TID PRN PO PRN; Start 10/10/16 at 01:30 Diphenoxylate HCl/ Atropine (Lomotil Liquid Cup) 5 ml Q6H PRN PO DIARRHEA; Start 10/10/16 at 01:30 Estrogens Conjugated (Premarin Vaginal Cr) 1 applic HS VAG ; Start 10/10/16 at 21 :00 Nicotine (Nicoderm 21 Mg/ 24hr) 1 patch DAILY TRANSDERM Last administered on 08:41; Admin Dose 1 PATCH; Start 10/10/16 at 09:00 Venlafaxine HCl (Effexor Xr) 225 mg QAM PO Last administered on 10/12/16 08:38 ; Admin Dose 225 MG; Start 10/10/16 at 09:00 Acetaminophen (Tylenol Tab) 650 mg Q6H PRN PO PAIN AND OR ELEVATED TEMP Last administered on 10/10/16 20:22; Admin Dose 650 MG; Start 10/10/16 at 01:30 Pantoprazole (Protonix Iv) 40 mg DAILY@06 IV Last administered on 10/12/16 05: 26; Admin Dose 40 MG; Start 10/10/16 at 06:00 Ondansetron HCl (Zofran Inj) 4 mg Q6H PRN IV NAUSEA AND/OR VOMITING; Start 10/10 at 02:30 Gabapentin (Neurontin) 1,200 mg TID PO Last administered on 10/12/16 08:39; Admin Dose 1,200 MG; Start 10/10/16 at 21:00 Morphine Sulfate (morphine) 4 mg Q6H PRN IV PAIN LEVEL 4-7 Last administered on 10/12/16 11:38; Admin Dose 4 MG; Start 10/10/16 at 15:00 Carisoprodol (Soma) 350 mg DAILY PO Last administered on 10/12/16 08:39; Admin Dose 350 MG; Start 10/10/16 at 15:00 Loratadine (Claritin) 10 mg DAILY PO Last administered on 10/12/16 08:39; Admin Dose 10 MG; Start 10/10/16 at 22:30 Clonazepam (Klonopin) 2 mg 09,13 PO Last administered on 10/12/16 08:39; Admin Dose 2 MG; Start 10/11/16 at 13:56 Metronidazole 500 mg 500 mg Q8 PO Last administered on 10/12/16 05:26; Admin Dose 500 MG; Start 10/11/16 at 20:00 Ceftriaxone Sodium (Rocephin) 50 ml @ 100 mls/hr Q24H IVPB Last administered on 10/11/16 21:14; Admin Dose 100 MLS/HR; Start 10/11/16 at 20:00 JUAN AMARO MD Oct 12, 2016 15:12
[2016-10-12] MEDS ORDERED: PROPOFOL 20 ML ONE (17:41)
[2016-10-12] MEDS ORDERED: FENTAnyl 50 MCG/ML VIAL ONE (17:41)
[2016-10-12] MEDS ORDERED: MIDAZOLAM 1 MG/ML 2 ML INJ ONE ×2 (17:41→17:42)
[2016-10-12] MEDS: CEFTRIAXONE 1 GM/50 ML (PMX) 50 ML IVPB SCH (20:09)
[2016-10-12] MEDS: ESTROGENS CONJUGATED 42.5 GM VAG CR VAG SCH (20:11)
[2016-10-12] MEDS: ZOLPIDEM 5 MG TAB PO PRN (21:50)
[2016-10-13] MEDS: morphine 4 MG/ML VIAL IV PRN ×4 (02:28→23:34)
--- NOTE | 2016-10-13 04:30 | GILP ---
DATE OF PROCEDURE: PROCEDURE: Colonoscopy with polyp ablation. INSTRUMENT USED: Olympus colonoscope. PREPARATION: Adequate. TECHNIQUE: After informed consent, with the patient/relatives understanding the procedure, its indic ations potential risks and complications, including but not limited to: allergic reaction, bleeding, perforation, infection, missed lesions and after all pertinent questions were answered to the patie nt's satisfaction, the patient/relatives signed the witnessed informed consent. Following this, premedication was administered slowly IV push by under careful cardiovascular and re spiratory monitoring with pulse oximetry, automatic blood pressure and tennis professional. Once the sedativ e effect was achieved, the patient was placed in the left lateral decubitus position, digital rectal examination was performed. The colonoscope was then introduced and advanced under visual control th roughout all segments of the colon including: the rectum, sigmoid, descending colon, splenic flexure , transverse colon, hepatic flexure, ascending colon and finally reaching the cecum which was clearl y identified by transillumination, finger indentation and the ileocecal valve. Careful examination o f the mucosa of the lower gastrointestinal tract both on insertion as well as withdrawal of the inst rument disclosed the following findings: Rectal Examination: No evidence of perirectal disease, no masses. Colonic Mucosa: There are several small polyps in the rectum, ablated. The left side of the colon shows occasional diverticulum; no evidence of bleeding or other complicat ion is present. The remainder of the colonic mucosa is unremarkable. The ileocecal valve was clearl y identified and appears unremarkable. The instrument was withdrawn reexamining the mucosa in detai l. No additional abnormalities are noted with the exception of moderate sized internal hemorrhoids, probably the source of bleeding. The instrument was then withdrawn, the patient tolerated the procedure well and was transferred out of the Endoscopy Suite awake and in good condition to continue recovery under observation. IMPRESSION: 1. Several small polyps in the rectum, ablated. 2. Diverticulosis, left side of the colon, moderate. 3. Moderate size internal hemorrhoids. PLAN: The patient will be continued on the present regimen. Further recommendation will depend on her clinical course. Dictated By: JAYCE NEWBERRY Conf#: [id number] DID#: [id number]
[2016-10-13] MEDS: PANTOPRAZOLE 40 MG INJ IV SCH (05:33)
[2016-10-13] MEDS: metroNIDAZOLE 500 MG TAB PO SCH ×3 (05:33→21:06)
[2016-10-13 06:45] LABS: BASOPHILS % 0.3 % (0.0-2.0); EOSINOPHILS # 0.3 10^3/ul (0.0-0.5); EOSINOPHILS % 4.2 % (0.0-7.0); HEMATOCRIT 35.7 % (37.0-47.0); HEMOGLOBIN 12.4 g/dl (12.0-16.0); LYMPHOCYTES # 2.1 10^3/ul (0.8-2.9); LYMPHOCYTES % 33.9 % (15.0-51.0); MEAN CORPUSCULAR HEMOGLOBIN 35.5 pg (29.0-33.0); MEAN CORPUSCULAR HGB CONC 34.7 g/dl (32.0-37.0); MEAN CORPUSCULAR VOLUME 102.5 fl (82.0-101.0); MEAN PLATELET VOLUME 7.6 fl (7.4-10.4); MONOCYTE # 0.4 10^3/ul (0.3-0.9); MONOCYTES % 6.6 % (0.0-11.0); NEUTROPHIL # 3.4 10^3/ul (1.6-7.5); PLATELET COUNT 152 10^3/UL (140-440); RED BLOOD COUNT 3.48 10^6/ul (4.20-5.40); RED CELL DISTRIBUTION WIDTH 13.2 % (11.5-14.5); UNCORRECTED WBC 6.2 10^3/ul (4.8-10.8); WHITE BLOOD COUNT 6.2 10^3/ul (4.8-10.8)
[2016-10-13 06:48] LABS: POTASSIUM 3.8 mmol/L (3.5-5.1)
[2016-10-13 06:51] LABS: CALCIUM 8.4 mg/dl (8.4-10.2); CREATININE 0.64 mg/dl (0.44-1.00)
[2016-10-13 07:15] VITALS: BP 159/93; RESP 18
[2016-10-13 07:19] LABS: CONDITION 1; LH ANALYZER COMMENTS 1
[2016-10-13] MEDS: NICOTINE (21 MG/24 HR) PATCH TRANSDERM SCH (09:28)
[2016-10-13] MEDS: GABAPENTIN 300 MG CAP PO SCH ×3 (09:29→21:06)
[2016-10-13] MEDS: VENLAFAXINE (XR) 75 MG CAP PO SCH (09:29)
[2016-10-13] MEDS: CARISOPRODOL 350 MG TAB PO SCH (09:29)
[2016-10-13] MEDS: LORATADINE 10 MG TAB PO SCH (09:29)
[2016-10-13] MEDS: clonAZEPAM 0.5 MG TAB PO SCH ×2 (09:35→12:57)
[2016-10-13] MEDS: ACETAMINOPHEN 325 MG TAB PO PRN (12:56)
--- NOTE | 2016-10-13 14:34 | PN ---
Date/Time of Note Date/Time of Note DATE: 10/13/16 TIME: 14:32 Assessment/Plan VTE Prophylaxis VTE Prophylaxis Intervention: SCD's Lines/Catheters IV Catheter Type (from Nrs): Saline Lock Urinary Cath still in place: No Assessment/Plan Assessment/Plan 1. Lower GI bleeding, likely hemorrhoid, follow up with GI 2. Hypertension: controlled 3. Hx of PE 4. Hx of Seizure 5. Sigmoid diverticulosis 6. Hx of Gastritis 7. Chronic pain syndrome 8. Hx of Panic disorder, depression and anxiety 9. D/C planning for tomorrow Subjective 24 Hr Interval Summary Free Text/Dictation feels weak, blood stool last night Exam/Review of Systems Vital Signs Vitals Vital Signs Date Time Temp Pulse Resp B/P Pulse Ox O2 Delivery O2 Flow Rate FiO2 10/13/16 07:15 98.4 71 18 159/93 94 10/12/16 20:20 Room Air Intake and Output 10/12/16 10/12/16 10/13/16 15:00 23:00 07:00 Intake Total 50 ml Balance 50 ml Exam Constitutional: alert, oriented, well developed Psych: nl mood/affect, no complaints Head: atraumatic, normocephalic Eyes: EOMI, nl conjunctiva, nl lids ENMT: nl external ears & nose, nl lips & teeth, nl nasal mucosa & septum Neck: non-tender, supple Respiratory: clear to auscultation, No congested cough, No crackles/rales, No diminished breath sounds, No intercostal retraction, No labored breathing, No normal air movement, No other, No respirations, No tactile fremitus, No wheezing Cardiovascular: nl pulses, regular rate and rhythm, No S3, No S4, No bruits, No diastolic murmur, No edema, No gallop, No irregular rhythm, No jugular venous distention (JVD), No murmurs/extra sounds, No other, No rub, No systolic murmur Gastrointestinal: nl liver, spleen, non-tender, soft, No ascites, No bowel sounds, No distended, No firm, No hepatomegaly, No mass , No other, No rebound or guarding, No splenomegaly, No surgical scars, No tender Musculoskeletal: nl extremities to inspection Extremities: normal pulses, No calf tenderness, No clubbing, No cyanosis, No edema, No other, No palpable cord, No pitting pedal edema, No tenderness Neurological: THERAPY TEACHER II-XII intact, nl mental status, nl speech, nl strength Skin: nl turgor, rash or lesions Results Result Diagram: 10/13/16 0540 10/13/16 0540 Results 24 hrs Laboratory Tests Test 10/13/16 05:40 Anion Gap 12 Basophils # 0.0 Basophils % 0.3 Blood Morphology Comment Blood Urea Nitrogen 10 Calcium Level 8.4 Carbon Dioxide Level 27 Chloride Level 107 Creatinine 0.64 Eosinophils # 0.3 Eosinophils % 4.2 Glucose Level 105 Hematocrit 35.7 L Hemoglobin 12.4 Lymphocytes # 2.1 Lymphocytes % 33.9 Mean Corpuscular Hemoglobin 35.5 H Mean Corpuscular Hemoglobin Concent 34.7 Mean Corpuscular Volume 102.5 H Mean Platelet Volume 7.6 Monocytes # 0.4 Monocytes % 6.6 Neutrophils # 3.4 Neutrophils % 55.0 Nucleated Red Blood Cells # 0.0 Nucleated Red Blood Cells % 0.0 Platelet Count 152 Potassium Level 3.8 Red Blood Count 3.48 L Red Cell Distribution Width 13.2 Sodium Level 142 White Blood Count 6.2 Medications Medications Current Medications Dicyclomine HCl (Bentyl) 10 mg TID PRN PO PRN; Start 10/10/16 at 01:30 Diphenoxylate HCl/ Atropine (Lomotil Liquid Cup) 5 ml Q6H PRN PO DIARRHEA; Start 10/10/16 at 01:30 Estrogens Conjugated (Premarin Vaginal Cr) 1 applic HS VAG ; Start 10/10/16 at 21 :00 Nicotine (Nicoderm 21 Mg/ 24hr) 1 patch DAILY TRANSDERM Last administered on 09:28; Admin Dose 1 PATCH; Start 10/10/16 at 09:00 Venlafaxine HCl (Effexor Xr) 225 mg QAM PO Last administered on 10/13/16 09:29 ; Admin Dose 225 MG; Start 10/10/16 at 09:00 Acetaminophen (Tylenol Tab) 650 mg Q6H PRN PO PAIN AND OR ELEVATED TEMP Last administered on 10/13/16 12:56; Admin Dose 650 MG; Start 10/10/16 at 01:30 Pantoprazole (Protonix Iv) 40 mg DAILY@06 IV Last administered on 10/13/16 05: 33; Admin Dose 40 MG; Start 10/10/16 at 06:00 Ondansetron HCl (Zofran Inj) 4 mg Q6H PRN IV NAUSEA AND/OR VOMITING; Start 10/10 at 02:30 Gabapentin (Neurontin) 1,200 mg TID PO Last administered on 10/13/16 12:56; Admin Dose 1,200 MG; Start 10/10/16 at 21:00 Morphine Sulfate (morphine) 4 mg Q6H PRN IV PAIN LEVEL 4-7 Last administered on 10/13/16 09:35; Admin Dose 4 MG; Start 10/10/16 at 15:00 Carisoprodol (Soma) 350 mg DAILY PO Last administered on 10/13/16 09:29; Admin Dose 350 MG; Start 10/10/16 at 15:00 Loratadine (Claritin) 10 mg DAILY PO Last administered on 10/13/16 09:29; Admin Dose 10 MG; Start 10/10/16 at 22:30 Clonazepam (Klonopin) 2 mg PO Last administered on 10/13/16 12:57; Admin Dose 2 MG; Start 10/11/16 at 13:56 Metronidazole 500 mg 500 mg Q8 PO Last administered on 10/13/16 13:14; Admin Dose 500 MG; Start 10/11/16 at 20:00 Ceftriaxone Sodium (Rocephin) 50 ml @ 100 mls/hr Q24H IVPB Last administered on 10/12/16 20:09; Admin Dose 100 MLS/HR; Start 10/11/16 at 20:00 JUAN AMARO MD Oct 13, 2016 14:34
[2016-10-13 19:50] VITALS: BP 140/95; RESP 20
[2016-10-13] MEDS: ESTROGENS CONJUGATED 42.5 GM VAG CR VAG SCH (21:00)
[2016-10-13] MEDS: CEFTRIAXONE 1 GM/50 ML (PMX) 50 ML IVPB SCH (21:06)
[2016-10-13] MEDS: ZOLPIDEM 5 MG TAB PO PRN (23:34)
[2016-10-14] MEDS: ACETAMINOPHEN 325 MG TAB PO PRN ×2 (01:37→08:39)
[2016-10-14] MEDS: metroNIDAZOLE 500 MG TAB PO SCH ×2 (05:46→12:41)
[2016-10-14] MEDS: PANTOPRAZOLE 40 MG INJ IV SCH (05:46)
[2016-10-14] MEDS: morphine 4 MG/ML VIAL IV PRN ×3 (05:47→18:42)
[2016-10-14 06:25] LABS: BASOPHILS % 0.2 % (0.0-2.0); EOSINOPHILS # 0.3 10^3/ul (0.0-0.5); EOSINOPHILS % 3.5 % (0.0-7.0); HEMATOCRIT 37.2 % (37.0-47.0); HEMOGLOBIN 12.9 g/dl (12.0-16.0); LYMPHOCYTES # 3.2 10^3/ul (0.8-2.9); LYMPHOCYTES % 37.2 % (15.0-51.0); MEAN CORPUSCULAR HEMOGLOBIN 35.6 pg (29.0-33.0); MEAN CORPUSCULAR HGB CONC 34.7 g/dl (32.0-37.0); MEAN CORPUSCULAR VOLUME 102.7 fl (82.0-101.0); MEAN PLATELET VOLUME 7.3 fl (7.4-10.4); MONOCYTE # 0.7 10^3/ul (0.3-0.9); MONOCYTES % 8.2 % (0.0-11.0); NEUTROPHIL # 4.3 10^3/ul (1.6-7.5); NEUTROPHILS % 50.9 % (39.0-77.0); PLATELET COUNT 178 10^3/UL (140-440); RED BLOOD COUNT 3.62 10^6/ul (4.20-5.40); RED CELL DISTRIBUTION WIDTH 13.6 % (11.5-14.5); UNCORRECTED WBC 8.5 10^3/ul (4.8-10.8); WHITE BLOOD COUNT 8.5 10^3/ul (4.8-10.8)
[2016-10-14 06:42] LABS: CONDITION 1; LH ANALYZER COMMENTS 1
[2016-10-14 07:46] VITALS: BP 155/91; RESP 16
[2016-10-14] MEDS: CARISOPRODOL 350 MG TAB PO SCH (08:39)
[2016-10-14] MEDS: VENLAFAXINE (XR) 75 MG CAP PO SCH (08:39)
[2016-10-14] MEDS: GABAPENTIN 300 MG CAP PO SCH ×2 (08:40→12:38)
[2016-10-14] MEDS: NICOTINE (21 MG/24 HR) PATCH TRANSDERM SCH (08:40)
[2016-10-14] MEDS: LORATADINE 10 MG TAB PO SCH (08:40)
[2016-10-14] MEDS: clonAZEPAM 0.5 MG TAB PO SCH ×2 (08:47→12:38)
--- NOTE | 2016-10-14 12:59 | CONS ---
Date/Time of Note Date/Time of Note DATE: 10/14/16 TIME: 12:59 Assessment/Plan Assessment/Plan Additional Assessment/Plan Additional Assessment/Plan Rectal bleed * Likely 2/2 to acute diverticulitis, continue abx tx. * Colonoscopy 09-11-16: 1. Several small polyps in the rectum, ablated, neg for malignancy. 2. Diverticulosis, left side of the colon, moderate. 3. Moderate size internal hemorrhoids. * Advance diet as tolerated * Antibiotic treatment for possible diverticulitis * C. difficile stool, neg * Monitor H&H every 6 hours, transfuse 2 units for hemoglobin less than 7.5 Hypertension Seizure Gastritis * PPI therapy Chronic pain syndrome Panic disorder Depression Anxiety Further recommendations depend on clinical course Pt stable from GI stand point Patient seen in collaboration with 's Consultation Date/Type/Reason Admit Date/Time Oct 09, 2016 at 23:46 Initial Consult Date Type of Consultation: Gastroenterology 24 HR Interval Summary Free Text/Dictation Abdominal pain improving Recommend abx as OP for likely divert Exam/Review of Systems Vital Signs Vitals Vital Signs Date Time Temp Pulse Resp B/P Pulse Ox O2 Delivery O2 Flow Rate FiO2 10/14/16 07:46 98.4 74 16 155/91 94 10/12/16 20:20 Room Air Intake and Output 10/13/16 10/13/16 10/14/16 15:00 23:00 07:00 Intake Total 1600 ml 930 ml Balance 1600 ml 930 ml Exam Constitutional: alert, obese, oriented, well developed Head: atraumatic Eyes: EOMI, nl conjunctiva, nl lids, nl sclera ENMT: nl external ears & nose, nl lips & teeth, nl nasal mucosa & septum Respiratory: normal air movement Cardiovascular: regular rate and rhythm Gastrointestinal: soft, slightly tender (left lower quadrant tenderness) Musculoskeletal: nl extremities to inspection Neurological: EXECUTIVE DIRECTOR II-XII intact Results Result Diagram: 10/14/16 0515 10/13/16 0540 Results 24 hrs Laboratory Tests Test 10/14/16 05:15 Basophils # 0.0 Basophils % 0.2 Blood Morphology Comment Eosinophils # 0.3 Eosinophils % 3.5 Hematocrit 37.2 Hemoglobin 12.9 Lymphocytes # 3.2 H Lymphocytes % 37.2 Mean Corpuscular Hemoglobin 35.6 H Mean Corpuscular Hemoglobin Concent 34.7 Mean Corpuscular Volume 102.7 H Mean Platelet Volume 7.3 L Monocytes # 0.7 Monocytes % 8.2 Neutrophils # 4.3 Neutrophils % 50.9 Nucleated Red Blood Cells # 0.0 Nucleated Red Blood Cells % 0.0 Platelet Count 178 Red Blood Count 3.62 L Red Cell Distribution Width 13.6 White Blood Count 8.5 # Medications Medications Current Medications Dicyclomine HCl (Bentyl) 10 mg TID PRN PO PRN; Start 10/10/16 at 01:30 Diphenoxylate HCl/ Atropine (Lomotil Liquid Cup) 5 ml Q6H PRN PO DIARRHEA; Start 10/10/16 at 01:30 Estrogens Conjugated (Premarin Vaginal Cr) 1 applic HS VAG ; Start 10/10/16 at 21 :00 Nicotine (Nicoderm 21 Mg/ 24hr) 1 patch DAILY TRANSDERM Last administered on 08:40; Admin Dose 1 PATCH; Start 10/10/16 at 09:00 Venlafaxine HCl (Effexor Xr) 225 mg QAM PO Last administered on 10/14/16 08:39 ; Admin Dose 225 MG; Start 10/10/16 at 09:00 Acetaminophen (Tylenol Tab) 650 mg Q6H PRN PO PAIN AND OR ELEVATED TEMP Last administered on 10/14/16 08:39; Admin Dose 650 MG; Start 10/10/16 at 01:30 Pantoprazole (Protonix Iv) 40 mg DAILY@06 IV Last administered on 10/14/16 05: 46; Admin Dose 40 MG; Start 10/10/16 at 06:00 Ondansetron HCl (Zofran Inj) 4 mg Q6H PRN IV NAUSEA AND/OR VOMITING; Start 10/10 at 02:30 Gabapentin (Neurontin) 1,200 mg TID PO Last administered on 10/14/16 12:38; Admin Dose 1,200 MG; Start 10/10/16 at 21:00 Morphine Sulfate (morphine) 4 mg Q6H PRN IV PAIN LEVEL 4-7 Last administered on 10/14/16 12:39; Admin Dose 4 MG; Start 10/10/16 at 15:00 Carisoprodol (Soma) 350 mg DAILY PO Last administered on 10/14/16 08:39; Admin Dose 350 MG; Start 10/10/16 at 15:00 Loratadine (Claritin) 10 mg DAILY PO Last administered on 10/14/16 08:40; Admin Dose 10 MG; Start 10/10/16 at 22:30 Clonazepam (Klonopin) 2 mg 09,13 PO Last administered on 10/14/16 12:38; Admin Dose 2 MG; Start 10/11/16 at 13:56 Metronidazole 500 mg 500 mg Q8 PO Last administered on 10/14/16 12:41; Admin Dose 500 MG; Start 10/11/16 at 20:00 Ceftriaxone Sodium (Rocephin) 50 ml @ 100 mls/hr Q24H IVPB Last administered on 10/13/16 21:06; Admin Dose 100 MLS/HR; Start 10/11/16 at 20:00 ADALGISA VAZQUZE Oct 14, 2016 12:59
[2016-10-14] MEDS ORDERED: BISACODYL (EC) 5 MG TAB PO ONE (15:30)
--- NOTE | 2016-10-14 15:31 | DS ---
Date/Time of Note Date/Time of Note DATE: 10/14/16 TIME: 15:26 Discharge Summary Admission/Discharge Info Admit Date/Time Oct 09, 2016 at 23:46 Discharge Date/Time Final Diagnosis 1. Lower GI bleeding, likely hemorrhoid, follow up with GI 2. Hypertension: controlled 3. Hx of PE 4. Hx of Seizure 5. Sigmoid diverticulosis 6. Hx of Gastritis 7. Chronic pain syndrome 8. Hx of Panic disorder, depression and anxiety Patient Condition: Stable Procedures DATE OF PROCEDURE: PROCEDURE: Colonoscopy with polyp ablation. INSTRUMENT USED: Olympus colonoscope. PREPARATION: Adequate. TECHNIQUE: After informed consent, with the patient/relatives understanding the procedure, its indications potential risks and complications, including but not limited to: allergic reaction, bleeding, perforation, infection, missed lesions and after all pertinent questions were answered to the patient's satisfaction, the patient/relatives signed the witnessed informed consent. Following this, premedication was administered slowly IV push by under careful cardiovascular and respiratory monitoring with pulse oximetry, automatic blood pressure and property assessment monitor. Once the sedative effect was achieved, the patient was placed in the left lateral decubitus position, digital rectal examination was performed. The colonoscope was then introduced and advanced under visual control throughout all segments of the colon including: the rectum, sigmoid, descending colon, splenic flexure, transverse colon, hepatic flexure, ascending colon and finally reaching the cecum which was clearly identified by transillumination, finger indentation and the ileocecal valve. Careful examination of the mucosa of the lower gastrointestinal tract both on insertion as well as withdrawal of the instrument disclosed the following findings: Rectal Examination: No evidence of perirectal disease, no masses. Colonic Mucosa: There are several small polyps in the rectum, ablated. The left side of the colon shows occasional diverticulum; no evidence of bleeding or other complication is present. The remainder of the colonic mucosa is unremarkable. The ileocecal valve was clearly identified and appears unremarkable. The instrument was withdrawn reexamining the mucosa in detail. No additional abnormalities are noted with the exception of moderate sized internal hemorrhoids, probably the source of bleeding. The instrument was then withdrawn, the patient tolerated the procedure well and was transferred out of the Endoscopy Suite awake and in good condition to continue recovery under observation. IMPRESSION: 1. Several small polyps in the rectum, ablated. 2. Diverticulosis, left side of the colon, moderate. 3. Moderate size internal hemorrhoids. PLAN: The patient will be continued on the present regimen. Further recommendation will depend on her clinical course. Dictated By: JAYCE NORRIS MS/SHAMEKA Conf#: [id number] DID#: [id number] Hospital Course The patient is a 55-year-old female with hx of Hypertension, PE, Seizure, diverticulosis, Gastritis, hiatal hernia, chronic pain syndrome, panic disorder , depression and anxiety presented to the ER because of bloody stool at about 10 AM today with a bowel movement. It was bright red blood. She had history of anal fissure. She denies any hematemesis, complaint of nausea but no vomiting, denies constipation, dysuria. She denies fever, chills, complains of vague dizziness, denies syncope, near syncope. She had EGD here in 2013 that showed Gastritis and Hiatal hernia. She also said she had colonoscopy 3 years ago that showed diverticulosis. CTa/p showed Mild sigmoid colon diverticulosis Patient had colonoscopy on 10/13/2016, that revealed small polyps in the rectum, ablated.diverticulosis, left side of the colon, moderate. and moderate size internal hemorrhoids.The rectal bleeding is most likely hemorrhoid related. No rectal bleeding after the colonoscopy. H/H has been stable. She will follow up with PCP and Dr. Norris in offices. Home Meds Reported Medications Estrogens Conjugated* (Premarin* Vaginal Cream) 1 Applic Cr, 1 APPLIC VAG TWO TIMES A WEEK, TUB 10/09/16 Zolpidem Tartrate* (Ambien*) 10 Mg Tablet, 10 MG PO QHS Y for INSOMNIA, TAB 10/09/16 Venlafaxine Hcl* (Venlafaxine Hcl*) 100 Mg Tablet, 225 MG PO QAM, TAB 10/09/16 Nicotine* (Nicotine* Patch) 21 mg/day Patch, 1 EACH TD DAILY, PATCH 10/09/16 Lidocaine (Lidocaine) 5 Gm Cream..g., 5 GM TP QID 10/09/16 Diphenoxylate Hcl-Atropine* (Lomotil*) 5 Ml Soln, 5 ML PO Q6H Y for DIARRHEA, ML 10/09/16 Gabapentin* (Gabapentin*) 600 Mg Tablet, 1200 MG PO TID, #180 TAB 10/09/16 Dicyclomine Hcl* (Bentyl*) 10 Mg Capsule, 10 MG PO TID Y for PRN, CAP 10/09/16 Clonazepam* (Clonazepam*) 2 Mg Tablet, 2 MG PO BID, TAB 10/09/16 Cetirizine Hcl* (Cetirizine Hcl*) 10 Mg Tab.chew, 10 MG PO DAILY, #30 TAB 10/09/16 Thiamine* (Vitamin B-1*) 50 Mg Tablet, 50 MG PO DAILY, TAB 10/09/16 Albuterol Sulfate* (Ventolin HFA*) 18 Gm Hfa.aer.ad, 2 PUFF INHALATION Q4H Y for WHEEZING AND SOB, #1 INHALER 10/09/16 Discontinued Reported Medications Cetirizine Hcl* (Cetirizine Hcl*) 5 Mg/5 Ml Solution, 10 MG PO DAILY, #300 ML 12/17/15 Topiramate* (Topamax*) 25 Mg Cap.sprink, 50 MG PO BID, CAP 12/17/15 Dicyclomine Hcl* (Bentyl*) 10 Mg Capsule, 10 MG PO QID, CAP 12/17/15 Oxybutynin Chloride* (Ditropan*) 5 Mg Tab, 5 MG PO TID, TAB 12/17/15 [ferosal 325mg] No Conflict Check 12/17/15 Venlafaxine Hcl* (Effexor XR*) 75 Mg Tab.er.24, 75 MG PO DAILY Y for ANXIETY, TAB.SA 12/17/15 Losartan Potassium* (Cozaar*) 50 Mg Tablet, 50 MG PO DAILY, #30 TAB 12/17/15 Levetiracetam* (Keppra* (Ped)) 100 Mg/Ml Liq, 500 MG PO DAILY 07/04/13 Phenytoin* Sodium Extended (Dilantin*) 100 Mg Capsule, 100 MG PO BID 07/04/13 Zolpidem Tartrate* (Ambien*) 10 Mg Tablet, PO HS 11/19/11 Clonazepam (Klonopin) 2 Mg Tablet, 10 MG PO QID 11/19/11 Gabapentin* (Neurontin*) 600 Mg Tablet, PO TID 11/19/11 Follow-up Plan PCP and Dr. Norris in one week Pending Labs Laboratory Tests Test 10/14/16 05:15 Basophils # 0.010^3/ul (0.0-0.1) Basophils % 0.2% (0.0-2.0) Blood Morphology Comment Eosinophils # 0.310^3/ul (0.0-0.5) Eosinophils % 3.5% (0.0-7.0) Hematocrit 37.2% (37.0-47.0) Hemoglobin 12.9g/dl (12.0-16.0) Lymphocytes # 3.210^3/ul (0.8-2.9) Lymphocytes % 37.2% (15.0-51.0) Mean Corpuscular Hemoglobin 35.6pg (29.0-33.0) Mean Corpuscular Hemoglobin Concent 34.7g/dl (32.0-37.0) Mean Corpuscular Volume 102.7fl (82.0-101.0) Mean Platelet Volume 7.3fl (7.4-10.4) Monocytes # 0.710^3/ul (0.3-0.9) Monocytes % 8.2% (0.0-11.0) Neutrophils # 4.310^3/ul (1.6-7.5) Neutrophils % 50.9% (39.0-77.0) Nucleated Red Blood Cells # 0.010^3/ul (0.0-0.0) Nucleated Red Blood Cells % 0.0/100WBC (0.0-0.0) Platelet Count 12592^3/UL (140-440) Red Blood Count 3.6210^6/ul (4.20-5.40) Red Cell Distribution Width 13.6% (11.5-14.5) White Blood Count 8.510^3/ul (4.8-10.8) JUAN AMARO MD Oct 14, 2016 15:31
[2016-10-14] MEDS ORDERED: INFLUENZA VIRUS VACCINE 0.5 ML SYG IM* ONE (18:30)
[2016-10-15] MEDS ORDERED: PANTOPRAZOLE (EC) 40 MG TAB PO SCH (06:00)
== END 2016-10-14 18:55 | disposition home or self-care (01) | DRG 395 ==
LOC: E/R 12:05 → MS2 23:46
PROVIDERS: ADMIT Internal Medicine; ATTEND Internal Medicine
PROC: 0D5P8ZZ Destruction of Rectum, Via Natural or Artificial Opening Endoscopic (ICD-10-PCS; principal; 2016-10-12 20:30)
DX: K64.8 Other hemorrhoids (principal); I10 Essential (primary) hypertension; Z86.711 Personal history of pulmonary embolism; G89.4 Chronic pain syndrome; F41.0 Panic disorder [episodic paroxysmal anxiety]; F41.9 Anxiety disorder, unspecified; F32.9 Major depressive disorder, single episode, unspecified; K62.1 Rectal polyp; K57.30 Diverticulosis of large intestine without perforation or abscess without bleeding
CPT/HCPCS: 36415; 74176; 80048; 80053; 82270; 83735; 84484; 85025; 85610; 85730; 86850; 86900; 86901; 87075; 88305; 90686; 93005; 96374; 96375; 96376; C9113; J0696; J2250; J2270; J2405; J3010; J7030

== ENCOUNTER 2017-03-15 18:20 | Inpatient (IN) | payer OTHER ==
[~2017-03-15] VITALS: Ht 165.1 cm; Wt 72.0 kg
[~2017-03-15 18:20] MED LIST changes: +ALBU18HF INHALATION; +CETI10TA34 PO; -CETI5SOL PO; -CLON2TAB15 PO; +CLON2TAB3 PO; +GABA-526 PO; -GABA600T PO; -KEP100S PO; +LIDO5CRE18 TP; -LOSA50TA2 PO; +NICO1PAT6 TD; -OXYB5TAB7 PO; -PHEN100C PO; +PREMVAG VAG; +THIA50TA10 PO; -TOPI25CA PO; +UDLOM PO; +VENL100T PO; -VENL75TA2 PO; -[UNRECOGNIZED DRUG - OTHER]
--- NOTE | 2017-03-15 18:32 | ERD ---
ER Documentation Chief Complaint Date/Time DATE: 03/15/17 TIME: 18:28 Chief Complaint HPI 56-year-old woman brought in by EMS from grocery store for confusion. Patient states she felt dizzy and passerby's found her confused but ambulating. She had hypotension at the scene but denied chest pain, no fevers or chills, no vomiting or diarrhea, no loss of consciousness. ROS All systems reviewed and are negative except as per history of present illness. Medications Home Meds Reported Medications Estrogens Conjugated* (Premarin* Vaginal Cream) 1 Applic Cr, 1 APPLIC VAG TWO TIMES A WEEK, TUB 10/09/16 Zolpidem Tartrate* (Ambien*) 10 Mg Tablet, 10 MG PO QHS Y for INSOMNIA, TAB 10/09/16 Venlafaxine Hcl* (Venlafaxine Hcl*) 100 Mg Tablet, 225 MG PO QAM, TAB 10/09/16 Nicotine* (Nicotine* Patch) 21 mg/day Patch, 1 EACH TD DAILY, PATCH 10/09/16 Lidocaine (Lidocaine) 5 Gm Cream..g., 5 GM TP QID 10/09/16 Diphenoxylate Hcl-Atropine* (Lomotil*) 5 Ml Soln, 5 ML PO Q6H Y for DIARRHEA, ML 10/09/16 Gabapentin* (Gabapentin*) 600 Mg Tablet, 1200 MG PO TID, #180 TAB 10/09/16 Dicyclomine Hcl* (Bentyl*) 10 Mg Capsule, 10 MG PO TID Y for PRN, CAP 10/09/16 Clonazepam* (Clonazepam*) 2 Mg Tablet, 2 MG PO BID, TAB 10/09/16 Cetirizine Hcl* (Cetirizine Hcl*) 10 Mg Tab.chew, 10 MG PO DAILY, #30 TAB 10/09/16 Thiamine* (Vitamin B-1*) 50 Mg Tablet, 50 MG PO DAILY, TAB 10/09/16 Albuterol Sulfate* (Ventolin HFA*) 18 Gm Hfa.aer.ad, 2 PUFF INHALATION Q4H Y for WHEEZING AND SOB, #1 INHALER 10/09/16 Allergies Allergies: Coded Allergies: No Known Drug Allergies (Verified Allergy, Mild, 12/17/15) PMhx/Soc Lower GI bleed, hypertension, history of pulmonary embolism, diverticulosis, history of seizures, chronic pain syndrome, anxiety, depression History of Surgery: Yes (two c sections, lining of uterus removed) Anesthesia Reaction: No Hx Neurological Disorder: No Hx Respiratory Disorders: No Hx Cardiac Disorders: Yes (HTN) Hx Psychiatric Problems: No Hx Miscellaneous Medical Probl: No Hx Alcohol Use: Yes Hx Substance Use: No Hx Tobacco Use: Yes FmHx Family History: No diabetes Physical Exam Vitals Vital Signs Date Time Temp Pulse Resp B/P Pulse Ox O2 Delivery O2 Flow Rate FiO2 03/15/17 21:00 98.7 70 12 103/74 100 Room Air 03/15/17 18:36 98.7 67 12 75/49 100 03/15/17 18:30 70 16 75/49 95 Room Air Physical Exam GENERAL: Well-developed, well-nourished, appears confused, afebrile, hypotensive HEENT: Moist mucous membranes, pink conjunctiva, no cervical spine tenderness or step-off deformities, no goiter, no jaundice or icterus, extraocular movements intact without pain. No submandibular induration, and no pharyngeal erythema NEURO: Alert and oriented 3, confused, cranial nerves II through XII intact bilaterally, pupils equal round reactive to light, no focal deficits or facial asymmetry, sensation intact distally Strength 5/5 in upper and lower extremities bilaterally CARDIAC: Regular rate and rhythm, no murmurs rubs or gallops LUNGS: Clear bilaterally no wheezing crackles or stridor ABDOMEN: Soft nontender, no guarding, no rigidity, no rebound, no psoas sign no obturator sign. Normoactive bowel sounds SKIN: Warm and dry to touch, no abrasions, contusions, or hematomas, no lacerations, no ecchymosis, no target lesions, and without ulcers EXTREMITIES: No clubbing cyanosis or edema, calves are bilaterally symmetrical, no Homans sign, no popliteal cord sign. Distal pulses equal and bilateral PSYCH: Normal affect without agitation or irritability Result Diagram: 03/15/17183903/15/171839 Results 24 hrs Laboratory Tests Test 03/15/17 18:40 03/15/17 18:55 03/15/17 19:38 White Blood Count 9.010^3/ul Red Blood Count 3.1810^6/ul Hemoglobin 11.5g/dl Hematocrit 31.7% Mean Corpuscular Volume 99.7fl Mean Corpuscular Hemoglobin 36.2pg Mean Corpuscular Hemoglobin Concent 36.3g/dl Red Cell Distribution Width 12.9% Platelet Count 10229^3/UL Mean Platelet Volume 9.3fl Neutrophils % 60.3% Lymphocytes % 31.2% Monocytes % 4.6% Eosinophils % 3.1% Basophils % 0.4% Nucleated Red Blood Cells % 0.0/100WBC Neutrophils # 5.410^3/ul Lymphocytes # 2.810^3/ul Monocytes # 0.410^3/ul Eosinophils # 0.310^3/ul Basophils # 0.010^3/ul Nucleated Red Blood Cells # 0.010^3/ul Prothrombin Time 12.5Sec Prothrombin Time Ratio 1.0 INR International Normalized Ratio 0.93 Sodium Level 128mmol/L Potassium Level 3.7mmol/L Chloride Level 86mmol/L Carbon Dioxide Level 32mmol/L Anion Gap 14 Blood Urea Nitrogen 31mg/dl Creatinine 2.62mg/dl Glucose Level 82mg/dl Calcium Level 10.9mg/dl Total Bilirubin 0.1mg/dl Direct Bilirubin 0.00mg/dl Indirect Bilirubin 0.1mg/dl Aspartate Amino Transf (AST/SGOT) 33IU/L Alanine Aminotransferase (ALT/SGPT) 32IU/L Alkaline Phosphatase 70IU/L Troponin I < 0.012ng/ml Total Protein 6.5g/dl Albumin 4.3g/dl Globulin 2.20g/dl Albumin/Globulin Ratio 1.95 Lipase 37U/L Ethyl Alcohol Level < 10.0mg/dl Urine Color YELLOW Urine Clarity CLOUDY Urine pH 5.0 Urine Specific [place] 1.015 Urine Ketones NEGATIVEmg/dL Urine Nitrite NEGATIVEmg/dL Urine Bilirubin NEGATIVEmg/dL Urine Urobilinogen NEGATIVEmg/dL Urine Leukocyte Esterase 3+Peter/ul Urine Microscopic RBC 3/HPF Urine Microscopic WBC > 182/HPF Urine Squamous Epithelial Cells FEW/HPF Urine Bacteria FEW/HPF Urine Hemoglobin NEGATIVEmg/dL Urine Glucose NEGATIVEmg/dL Urine Total Protein 1+mg/dl Urine Opiates Screen Negative Urine Barbiturates Negative Urine Amphetamines Screen Positive Urine Benzodiazepines Screen Negative Urine Cocaine Screen Negative Urine Cannabinoids Negative Bedside Glucose 84mg/dL Current Medications Medications (Trade) Dose Ordered Sig/Mayo Route PRN Reason Start Time Stop Time Status Last Admin Dose Admin Sodium Chloride (NS) 1,000 ml @ 2,000 mls/hr Q30M ONCE IV 03/15/17 19:00 03/15/17 19:29 DC 03/15/17 19:36 Ondansetron HCl 4 mg 4 mg ONCE STAT IV 03/15/17 18:38 03/15/17 18:40 DC 03/15/17 19:09 Ceftriaxone Sodium (Rocephin) 50 ml @ 100 mls/hr ONCE ONCE IVPB 03/15/17 20:00 03/15/17 20:29 DC 03/15/17 20:35 Procedures/MDM IV line was established patient was placed on cardiac rehabilitation program director rhythm strip revealed a sinus rhythm at about 70 bpm with upright P and T waves. Patient was afebrile. For initial hypotension she received 2 L normal saline intravenously, and Zofran 4 mg IV for complaints of nausea. EKG performed, read by me: 68 bpm, normal sinus rhythm, normal axis, no acute ST segment changes, narrow QRS complex, with good R-wave progression in precordial leads. CBC was unremarkable, electrolytes revealed dehydration and acute kidney injury with a BUN/creatinine of 31/2.6, hyponatremia at 128, liver function tests normal, troponin was negative. Urinalysis was positive for infection. I administered ceftriaxone 1 g IV. Chest X-ray 1V Interpreted by me: Soft Tissue: No acute abnormalities Bones: No acute abnormalities Mediastinum/Cardiac Silhouette/Lungs: No acute abnormalities. Critical Care: Time: 32 minutes, this was time separate from other billable procedures. Treatments/Evaluations: Close monitoring and treatment of unstable vital signs, cardiorespiratory, and neurologic status, while maintaining tight balance of fluid, respiratory, and cardiac interventions. Patient's initial hypotension improved, confusion has improved although she remains symptomatic and will be admitted to [facility] for continued IV hydration and antibiotic therapy. Departure Diagnosis: Primary Impression: Acute encephalopathy Additional Impressions: Acute UTI Dehydration Acute kidney injury Acute hyponatremia Condition: RON Givens MD Mar 15, 2017 18:31
[2017-03-15 18:36] VITALS: Ht 165.1 cm; Wt 72.0 kg
[2017-03-15] MEDS ORDERED: ONDANSETRON 4 MG INJ IV STA (18:38)
[2017-03-15 18:53] LABS: ADD SCAN DIFF NO
[2017-03-15 18:56] LABS: BASOPHILS % 0.4 % (0.0-2.0); EOSINOPHILS # 0.3 10^3/ul (0.0-0.5); EOSINOPHILS % 3.1 % (0.0-7.0); HEMATOCRIT 31.7 % (37.0-47.0); HEMOGLOBIN 11.5 g/dl (12.0-16.0); LYMPHOCYTES # 2.8 10^3/ul (0.8-2.9); LYMPHOCYTES % 31.2 % (15.0-51.0); MEAN CORPUSCULAR HEMOGLOBIN 36.2 pg (29.0-33.0); MEAN CORPUSCULAR HGB CONC 36.3 g/dl (32.0-37.0); MEAN CORPUSCULAR VOLUME 99.7 fl (82.0-101.0); MEAN PLATELET VOLUME 9.3 fl (7.4-10.4); MONOCYTE # 0.4 10^3/ul (0.3-0.9); MONOCYTES % 4.6 % (0.0-11.0); NEUTROPHIL # 5.4 10^3/ul (1.6-7.5); NEUTROPHILS % 60.3 % (39.0-77.0); PLATELET COUNT 198 10^3/UL (140-415); RED BLOOD COUNT 3.18 10^6/ul (4.20-5.40); RED CELL DISTRIBUTION WIDTH 12.9 % (11.5-14.5)
[2017-03-15] MEDS ORDERED: SOD CHLORIDE 0.9% 1,000 ML IV ONE (19:00)
[2017-03-15 19:14] LABS: INR 0.93; PROTIME 12.5 Sec (12.2-14.2)
[2017-03-15 19:18] LABS: ALANINE AMINOTRANSFERASE 32 IU/L (13-69); ALBUMIN 4.3 g/dl (3.3-4.9); ALBUMIN/GLOBULIN RATIO 1.95; ALKALINE PHOSPHATASE 70 IU/L (42-121); ANION GAP 14 (8-16); ASPARTATE AMINO TRANSFERASE 33 IU/L (15-46); BILIRUBIN,INDIRECT 0.1 mg/dl (0-1.1); BILIRUBIN,TOTAL 0.1 mg/dl (0.2-1.3); BLOOD UREA NITROGEN 31 mg/dl (7-20); CALCIUM 10.9 mg/dl (8.4-10.2); CARBON DIOXIDE 32 mmol/L (21-31); CHLORIDE 86 mmol/L (97-110); CREATININE 2.62 mg/dl (0.44-1.00); GLUCOSE 82 mg/dl (70-220); POTASSIUM 3.7 mmol/L (3.5-5.1); SODIUM 128 mmol/L (135-144); TOTAL PROTEIN 6.5 g/dl (6.1-8.1)
[2017-03-15 19:19] LABS: ETHANOL < 10.0 mg/dl
[2017-03-15 19:23] LABS: ADD UMIC YES; UR ASCORBIC ACID NEGATIVE (NEGATIVE); UR BACTERIA FEW /HPF (NONE SEEN); UR BILIRUBIN (Dip) NEGATIVE (NEGATIVE); UR BLOOD (Dip) NEGATIVE (NEGATIVE); UR CLARITY CLOUDY (CLEAR); UR COLOR YELLOW (YELLOW); UR GLUCOSE (Dip) NEGATIVE (NEGATIVE); UR KETONES (Dip) NEGATIVE (NEGATIVE); UR LEUKOCYTE ESTERASE (Dip) 3+ Leu/ul (NEGATIVE); UR NITRITE (Dip) NEGATIVE (NEGATIVE); UR RBC 3 /HPF (0-5); UR SPECIFIC GRAVITY (Dip) 1.015 (1.003-1.030); UR SQUAMOUS EPITHELIAL CELL FEW /HPF (FEW); UR TOTAL PROTEIN (Dip) 1+ mg/dl (NEGATIVE); UR UROBILINOGEN (Dip) NEGATIVE (NEGATIVE)
[2017-03-15 19:33] LABS: TROPONIN-I < 0.012 ng/ml (0.00-0.12)
[2017-03-15] MEDS ORDERED: CEFTRIAXONE 1 GM/50 ML (PMX) 50 ML IVPB ONE (20:00)
[2017-03-15 20:10] LABS: BENZODIAZEPINES Negative (NEGATIVE)
[2017-03-15 20:12] LABS: BARBITURATES Negative (NEGATIVE); CANNABINOIDS Negative (NEGATIVE); COCAINE Negative (NEGATIVE); OPIATES Negative (NEGATIVE)
[2017-03-15 21:00] VITALS: TEMP 98.7
--- NOTE | 2017-03-15 21:01 | RADRPT ---
PROCEDURE: Chest Radiograph. CLINICAL INDICATION: Abdominal pain TECHNIQUE: Single frontal chest radiograph. COMPARISON: Chest radiograph 07/27/2008 FINDINGS: The cardiomediastinal silhouette is within normal limits. Lung volumes are decreased. No infiltrate or effusion is seen. The bones are intact. IMPRESSION: 1. No evidence of acute cardiopulmonary disease. 2. Low lung volumes. RPTAT: HJBF .Rip Plascencia MD, MD Date Time Electronically viewed and signed by .Rip Plascencia MD, on 03/15/2017 21:01 .B/
[2017-03-15 22:55] VITALS: BP 103/70; RESP 18
[2017-03-16] MEDS: SOD CHLORIDE 0.9% 1,000 ML IV SCH ×2 (00:28→13:33)
[2017-03-16 02:22] VITALS: BP 91/53; RESP 18
[2017-03-16 05:54] LABS: ADD SCAN DIFF NO
[2017-03-16 05:58] LABS: BASOPHILS % 0.5 % (0.0-2.0); EOSINOPHILS # 0.2 10^3/ul (0.0-0.5); EOSINOPHILS % 2.5 % (0.0-7.0); HEMOGLOBIN 11.9 g/dl (12.0-16.0); LYMPHOCYTES # 1.3 10^3/ul (0.8-2.9); MEAN CORPUSCULAR HEMOGLOBIN 34.9 pg (29.0-33.0); MEAN CORPUSCULAR VOLUME 99.7 fl (82.0-101.0); MEAN PLATELET VOLUME 9.4 fl (7.4-10.4); MONOCYTE # 0.5 10^3/ul (0.3-0.9); NEUTROPHIL # 6.4 10^3/ul (1.6-7.5); NEUTROPHILS % 75.8 % (39.0-77.0); PLATELET COUNT 170 10^3/UL (140-415); RED BLOOD COUNT 3.41 10^6/ul (4.20-5.40); WHITE BLOOD COUNT 8.4 10^3/ul (4.8-10.8)
[2017-03-16 06:22] LABS: ALBUMIN 3.3 g/dl (3.3-4.9); ALBUMIN/GLOBULIN RATIO 1.83; ANION GAP 7 (8-16); ASPARTATE AMINO TRANSFERASE 43 IU/L (15-46); BILIRUBIN,INDIRECT 0.1 mg/dl (0-1.1); BILIRUBIN,TOTAL 0.1 mg/dl (0.2-1.3); BLOOD UREA NITROGEN 27 mg/dl (7-20); CALCIUM 8.8 mg/dl (8.4-10.2); CARBON DIOXIDE 27 mmol/L (21-31); CHLORIDE 100 mmol/L (97-110); CREATINE KINASE 443 IU/L (23-200); CREATININE 1.82 mg/dl (0.44-1.00); GLUCOSE 87 mg/dl (70-220); SODIUM 130 mmol/L (135-144); TOTAL PROTEIN 5.1 g/dl (6.1-8.1)
[2017-03-16 06:59] LABS: ALANINE AMINOTRANSFERASE 29 IU/L (13-69); ALKALINE PHOSPHATASE 58 IU/L (42-121); TROPONIN-I < 0.012 ng/ml (0.00-0.12)
[2017-03-16 07:53] VITALS: BP 91/52; RESP 18
[2017-03-16 09:46] VITALS: BP 102/57; PULSE 83; RESP 18
[2017-03-16] MEDS: ENOXAPARIN 40 MG/0.4 ML SYG SC SCH (09:52)
--- NOTE | 2017-03-16 14:07 | HP ---
Date/Time of Note Date/Time of Note DATE: 03/16/17 TIME: 13:55 Assessment/Plan VTE Prophylaxis VTE Prophylaxis Intervention: SCD's Lines/Catheters IV [facility]ter [facility] (from [facility]): Peripheral IV Urinary Cath still in place: No Assessment/Plan Assessment/Plan -UTI per UA, continue antibiotics, follow-up on cultures -Acute kidney injury, continue IV fluids, and attributed in creatinine. -Hyponatremia, monitor electrolytes. -Dehydration -Acute metabolic encephalopathy -Anxiety and depression Further recommendations based on clinical course. End of care discussed with Dr. Pineda. HPI/ROS Admit Date/Time Admit Date/Time Mar 15, 2017 at 20:15 Hx of Present Illness Patient is 56-year-old female with a past medical history positive for hypertension history of PE seizure, gastritis, moderate sigmoid diverticulosis, chronic pain syndrome, panic disorder, anxiety and depression. Patient was brought by EMS to to the emergency room from the grocery store with patient was found to become confused but able to ambulate. Patient complains of dizziness and was found to have be hypotensive in the emergency room. Patient denied any shortness of breath denies any chest pain denies any fever chills denies nausea vomiting diarrhea. Urinalysis was indicative urinary tract infection, patient also noted to have hypo-natremia with increased BUN and creatinine, patient was giving IV fluids and started on antibiotics. Patient is admitted for further evaluation and management. ROS Constitutional: disoriented, fatigue Eyes: no complaints ENT: no complaints Respiratory: no complaints Cardiovascular: no complaints Gastrointestinal: no complaints Genitourinary: dysuria Musculoskeletal: no complaints Skin: no complaints Neurologic: confusion Endocrine: no complaints Lymphatic: no complaints Psychological: no complaints Immunologic: no complaints PMH/Family/Social Past Medical History hypertension history of PE seizure, gastritis, moderate sigmoid diverticulosis, chronic pain syndrome, panic disorder, anxiety and depression. Medical History: diverticulitis, hypertension Past Surgical History Status post myomectomy, status post colonoscopy with polypectomy. Past Surgical Hx: other Family History Significant Family History: no pertinent family hx Social History Alcohol Use: occasionally Smoking Status: Current some day smoker Drug Use: none Exam/Review of Systems Vital Signs Vitals Vital Signs Date Time Temp Pulse Resp B/P Pulse Ox O2 Delivery O2 Flow Rate FiO2 03/16/17 10:11 Nasal Cannula 2.0 03/16/17 09:46 83 18 102/57 95 03/16/17 07:53 98.0 Intake and Output 03/15/17 03/15/17 03/16/17 15:00 23:00 07:00 Intake Total 1425 ml Output Total 400 ml Balance 1025 ml Exam Constitutional: alert, oriented, other (Pleasantly confused) Head: atraumatic, normocephalic Eyes: nl conjunctiva Neck: non-tender, supple Respiratory: normal air movement Cardiovascular: nl pulses Gastrointestinal: non-tender, soft Musculoskeletal: nl gait and stance Extremities: normal pulses Neurological: confused Skin: nl turgor Labs Result Diagram: 03/16/1740 03/16/17 0540 Medications Medications Current Medications Sodium Chloride 1,000 ml @ 75 mls/hr [id number] IV Last administered on 13:33; Admin Dose 75 MLS/HR; Start 03/15/17 at 23:30 Ceftriaxone Sodium (Rocephin) 50 ml @ 100 mls/hr Q24H IVPB ; Start 03/16/17 at 20:00 Enoxaparin Sodium (Lovenox) 40 mg DAILY SC Last administered on 03/16/17 09:52 ; Admin Dose 40 MG; Start 03/16/17 at 09:00 Acetaminophen (Tylenol Tab) 650 mg Q4H PRN PO PAIN AND OR ELEVATED TEMP; Start 03/15/17 at 23:30 DENNIS JUAN Mar 16, 2017 14:05
[2017-03-16] MEDS: traMADol 50 MG TAB PO PRN (17:49)
[2017-03-16 19:57] VITALS: BP 110/61; RESP 18
[2017-03-16] MEDS: CEFTRIAXONE 1 GM/50 ML (PMX) 50 ML IVPB SCH (20:13)
[2017-03-17] MEDS: SOD CHLORIDE 0.9% 1,000 ML IV SCH ×3 (03:49→22:07)
[2017-03-17 06:13] LABS: ADD SCAN DIFF NO
[2017-03-17 06:19] LABS: BASOPHILS % 0.3 % (0.0-2.0); EOSINOPHILS # 0.2 10^3/ul (0.0-0.5); EOSINOPHILS % 2.3 % (0.0-7.0); HEMATOCRIT 30.6 % (37.0-47.0); HEMOGLOBIN 10.4 g/dl (12.0-16.0); LYMPHOCYTES # 2.7 10^3/ul (0.8-2.9); LYMPHOCYTES % 37.4 % (15.0-51.0); MEAN CORPUSCULAR HEMOGLOBIN 34.6 pg (29.0-33.0); MEAN CORPUSCULAR VOLUME 101.7 fl (82.0-101.0); MEAN PLATELET VOLUME 9.4 fl (7.4-10.4); MONOCYTE # 0.4 10^3/ul (0.3-0.9); MONOCYTES % 4.8 % (0.0-11.0); NEUTROPHILS % 54.9 % (39.0-77.0); PLATELET COUNT 165 10^3/UL (140-415); RED BLOOD COUNT 3.01 10^6/ul (4.20-5.40); RED CELL DISTRIBUTION WIDTH 13.2 % (11.5-14.5); WHITE BLOOD COUNT 7.3 10^3/ul (4.8-10.8)
[2017-03-17 06:39] LABS: CALCIUM 8.5 mg/dl (8.4-10.2); CREATININE 1.16 mg/dl (0.44-1.00); POTASSIUM 3.8 mmol/L (3.5-5.1)
[2017-03-17 08:10] VITALS: BP 126/65; RESP 18
[2017-03-17] MEDS: traMADol 50 MG TAB PO PRN ×2 (08:24→19:24)
[2017-03-17] MEDS ORDERED: NICOTINE (21 MG/24 HR) PATCH TRANSDERM SCH ×4 (09:00→09:30)
[2017-03-17] MEDS ORDERED: clonAZEPAM 0.5 MG TAB PO SCH (09:00)
[2017-03-17] MEDS: NICOTINE (21 MG/24 HR) PATCH TRANSDERM SCH (09:33)
[2017-03-17] MEDS: THIAMINE 100 MG TAB PO SCH (09:33)
[2017-03-17] MEDS: VENLAFAXINE (XR) 75 MG CAP PO SCH (09:35)
[2017-03-17] MEDS: GABAPENTIN 400 MG CAP PO SCH ×3 (09:35→20:43)
[2017-03-17] MEDS: clonAZEPAM 0.5 MG TAB PO SCH ×2 (09:36→20:43)
[2017-03-17] MEDS: OXYCODONE/ACETAMINOPHEN (5/325) TAB PO PRN ×3 (09:37→22:07)
[2017-03-17] MEDS: ENOXAPARIN 40 MG/0.4 ML SYG SC SCH (09:48)
--- NOTE | 2017-03-17 15:38 | PN ---
Date/Time of Note Date/Time of Note DATE: 03/17/17 TIME: 15:34 Assessment/Plan VTE Prophylaxis VTE Prophylaxis Intervention: SCD's Lines/Catheters [facility] Peripheral IV Urinary Cath still in place: No Assessment/Plan Chief Complaint/Hosp Course Creatinine is trending down, patient has a good urine output, patient is afebrile hemodynamically stable. Assessment/Plan -UTI per UA, continue antibiotics, follow-up on cultures, Dr. Seals is following an infection disease consultation. -Acute kidney injury, continue IV fluids, continue to monitor BUN and creatinine. -Hyponatremia, resolved -Dehydration, resolved -Acute metabolic encephalopathy -Anxiety and depression Further recommendations based on clinical course. Plan of care discussed with Dr. Pineda. Problems: Exam/Review of Systems Vital Signs Vitals Vital Signs Date Time Temp Pulse Resp B/P Pulse Ox O2 Delivery O2 Flow Rate FiO2 03/17/17 08:10 98.2 75 18 126/65 97 03/16/17 20:03 Nasal Cannula 2.0 Intake and Output 03/16/17 03/16/17 03/17/17 15:00 23:00 07:00 Intake Total 625 ml 1705 ml 1350 ml Output Total 1350 ml Balance 625 ml 355 ml 1350 ml Exam Constitutional: alert, oriented, other (Pleasantly confused) Head: atraumatic, normocephalic Respiratory: normal air movement Cardiovascular: nl pulses Gastrointestinal: non-tender, soft Extremities: normal pulses Neurological: confused Skin: nl turgor Results Result Diagram: 03/17/17 0552 03/17/17 0552 Results 24 hrs Laboratory Tests Test 03/17/17 05:52 White Blood Count 7.3 Red Blood Count 3.01 L Hemoglobin 10.4 L Hematocrit 30.6 L Mean Corpuscular Volume 101.7 H Mean Corpuscular Hemoglobin 34.6 H Mean Corpuscular Hemoglobin Concent 34.0 Red Cell Distribution Width 13.2 Platelet Count 165 Mean Platelet Volume 9.4 Neutrophils % 54.9 Lymphocytes % 37.4 Monocytes % 4.8 Eosinophils % 2.3 Basophils % 0.3 Nucleated Red Blood Cells % 0.0 Neutrophils # 4.0 Lymphocytes # 2.7 Monocytes # 0.4 Eosinophils # 0.2 Basophils # 0.0 Nucleated Red Blood Cells # 0.0 Sodium Level 135 Potassium Level 3.8 Chloride Level 103 Carbon Dioxide Level 30 Anion Gap 6 L Blood Urea Nitrogen 18 # Creatinine 1.16 H Glucose Level 89 Calcium Level 8.5 Medications Medications Current Medications Sodium Chloride 1,000 ml @ 75 mls/hr [id number] IV Last administered on 03:49; Admin Dose 75 MLS/HR; Start 03/15/17 at 23:30 Ceftriaxone Sodium (Rocephin) 50 ml @ 100 mls/hr Q24H IVPB Last administered on 03/16/17 20:13; Admin Dose 100 MLS/HR; Start 03/16/17 at 20:00 Enoxaparin Sodium (Lovenox) 40 mg DAILY SC Last administered on 03/17/17 09:48 ; Admin Dose 40 MG; Start 03/16/17 at 09:00 Acetaminophen (Tylenol Tab) 650 mg Q4H PRN PO PAIN AND OR ELEVATED TEMP; Start 03/15/17 at 23:30 Tramadol HCl (Ultram) 50 mg Q6H PRN PO PAIN Last administered on 03/17/17 08: 24; Admin Dose 50 MG; Start 03/16/17 at 14:30 Thiamine HCl (Vitamin B1) 50 mg DAILY PO Last administered on 03/17/17 09:33; Admin Dose 50 MG; Start 03/17/17 at 09:00 Venlafaxine HCl (Effexor Xr) 225 mg QAM PO Last administered on 03/17/17 09:35 ; Admin Dose 225 MG; Start 03/17/17 at 09:00 Oxycodone/ Acetaminophen (Percocet (5/ 325)) 1 tab Q6H PRN PO PAIN Last administered on 03/17/17 09:37; Admin Dose 1 TAB; Start 03/17/17 at 09:00 Gabapentin (Neurontin) 800 mg TID PO Last administered on 03/17/17 12:28; Admin Dose 800 MG; Start 03/17/17 at 09:00 Zolpidem Tartrate (Ambien) 5 mg HS PRN PO INSOMNIA; Start 03/17/17 at 09:00 Clonazepam (Klonopin) 1 mg BID PO Last administered on 03/17/17 09:36; Admin Dose 1 MG; Start 03/17/17 at 09:00 Nicotine (Nicoderm 21 Mg/ 24hr) 1 patch DAILY TRANSDERM Last administered on t 09:33; Admin Dose 1 PATCH; Start 03/17/17 at 09:30 DENNIS JUAN Mar 17, 2017 15:38
--- NOTE | 2017-03-17 18:01 | CONS ---
Date/Time of Note Date/Time of Note DATE: 03/17/17 TIME: 18:00 Consultation Date/Type/Reason Admit Date/Time Mar 15, 2017 at 20:15 Type of Consultation: ID Eyes: no complaints ENT: no complaints Respiratory: no complaints Cardiovascular: no complaints Gastrointestinal: no complaints Genitourinary: dysuria Musculoskeletal: no complaints Skin: no complaints Neurologic: confusion Lymphatic: no complaints Psychological: no complaints Immunologic: no complaints Past Medical History Medical History: diverticulitis, hypertension Past Surgical History Past Surgical Hx: other Social History Alcohol Use: occasionally Smoking Status: Current some day smoker Drug Use: none Exam/Review of Systems Vital Signs Vitals Vital Signs Date Time Temp Pulse Resp B/P Pulse Ox O2 Delivery O2 Flow Rate FiO2 03/17/17 08:10 98.2 75 18 126/65 97 03/16/17 20:03 Nasal Cannula 2.0 Intake and Output 03/16/17 03/16/17 03/17/17 15:00 23:00 07:00 Intake Total 625 ml 1705 ml 1350 ml Output Total 1350 ml Balance 625 ml 355 ml 1350 ml Results Result Diagram: 03/17/17 0552 03/17/17 0552 Results 24 hrs Laboratory Tests Test 03/17/17 05:52 White Blood Count 7.3 Red Blood Count 3.01 L Hemoglobin 10.4 L Hematocrit 30.6 L Mean Corpuscular Volume 101.7 H Mean Corpuscular Hemoglobin 34.6 H Mean Corpuscular Hemoglobin Concent 34.0 Red Cell Distribution Width 13.2 Platelet Count 165 Mean Platelet Volume 9.4 Neutrophils % 54.9 Lymphocytes % 37.4 Monocytes % 4.8 Eosinophils % 2.3 Basophils % 0.3 Nucleated Red Blood Cells % 0.0 Neutrophils # 4.0 Lymphocytes # 2.7 Monocytes # 0.4 Eosinophils # 0.2 Basophils # 0.0 Nucleated Red Blood Cells # 0.0 Sodium Level 135 Potassium Level 3.8 Chloride Level 103 Carbon Dioxide Level 30 Anion Gap 6 L Blood Urea Nitrogen 18 # Creatinine 1.16 H Glucose Level 89 Calcium Level 8.5 Medications Medications Current Medications Sodium Chloride 1,000 ml @ 75 mls/hr [id number] IV Last administered on t 03:49; Admin Dose 75 MLS/HR; Start 03/15/17 at 23:30 Ceftriaxone Sodium (Rocephin) 50 ml @ 100 mls/hr Q24H IVPB Last administered on 03/16/17 20:13; Admin Dose 100 MLS/HR; Start 03/16/17 at 20:00 Enoxaparin Sodium (Lovenox) 40 mg DAILY SC Last administered on 03/17/17 09:48 ; Admin Dose 40 MG; Start 03/16/17 at 09:00 Acetaminophen (Tylenol Tab) 650 mg Q4H PRN PO PAIN AND OR ELEVATED TEMP; Start 03/15/17 at 23:30 Tramadol HCl (Ultram) 50 mg Q6H PRN PO PAIN Last administered on 03/17/17 08: 24; Admin Dose 50 MG; Start 03/16/17 at 14:30 Thiamine HCl (Vitamin B1) 50 mg DAILY PO Last administered on 03/17/17 09:33; Admin Dose 50 MG; Start 03/17/17 at 09:00 Venlafaxine HCl (Effexor Xr) 225 mg QAM PO Last administered on 03/17/17 09:35 ; Admin Dose 225 MG; Start 03/17/17 at 09:00 Oxycodone/ Acetaminophen (Percocet (5/ 325)) 1 tab Q6H PRN PO PAIN Last administered on 03/17/17 16:34; Admin Dose 1 TAB; Start 03/17/17 at 09:00 Gabapentin (Neurontin) 800 mg TID PO Last administered on 03/17/17 12:28; Admin Dose 800 MG; Start 03/17/17 at 09:00 Zolpidem Tartrate (Ambien) 5 mg HS PRN PO INSOMNIA; Start 03/17/17 at 09:00 Clonazepam (Klonopin) 1 mg BID PO Last administered on 03/17/17 09:36; Admin Dose 1 MG; Start 03/17/17 at 09:00 Nicotine (Nicoderm 21 Mg/ 24hr) 1 patch DAILY TRANSDERM Last administered on 09:33; Admin Dose 1 PATCH; Start 03/17/17 at 09:30 FATOU TORIBIO MD Mar 17, 2017 18:01
[2017-03-17] MEDS: CEFTRIAXONE 1 GM/50 ML (PMX) 50 ML IVPB SCH (20:41)
[2017-03-17] MEDS: ACETAMINOPHEN 325 MG TAB PO PRN (20:57)
[2017-03-17] MEDS: AL HYDROX/MG HYDROX/SIMETH 30 ML CUP PO PRN (20:57)
[2017-03-17 21:35] VITALS: BP 147/88; RESP 18
[2017-03-18] MEDS: ZOLPIDEM 5 MG TAB PO PRN ×2 (00:10→22:48)
[2017-03-18] MEDS: traMADol 50 MG TAB PO PRN ×3 (01:34→18:15)
[2017-03-18 02:52] VITALS: BP 119/73; RESP 18
[2017-03-18 06:33] LABS: ADD SCAN DIFF NO
[2017-03-18 06:36] LABS: BASOPHILS % 0.3 % (0.0-2.0); EOSINOPHILS # 0.2 10^3/ul (0.0-0.5); EOSINOPHILS % 2.8 % (0.0-7.0); HEMATOCRIT 29.2 % (37.0-47.0); HEMOGLOBIN 10.1 g/dl (12.0-16.0); LYMPHOCYTES # 3.2 10^3/ul (0.8-2.9); LYMPHOCYTES % 47.8 % (15.0-51.0); MEAN CORPUSCULAR HEMOGLOBIN 35.3 pg (29.0-33.0); MEAN CORPUSCULAR HGB CONC 34.6 g/dl (32.0-37.0); MEAN CORPUSCULAR VOLUME 102.1 fl (82.0-101.0); MEAN PLATELET VOLUME 9.5 fl (7.4-10.4); MONOCYTE # 0.4 10^3/ul (0.3-0.9); MONOCYTES % 5.5 % (0.0-11.0); NEUTROPHIL # 2.9 10^3/ul (1.6-7.5); NEUTROPHILS % 43.5 % (39.0-77.0); PLATELET COUNT 159 10^3/UL (140-415); RED BLOOD COUNT 2.86 10^6/ul (4.20-5.40); RED CELL DISTRIBUTION WIDTH 12.7 % (11.5-14.5); WHITE BLOOD COUNT 6.7 10^3/ul (4.8-10.8)
[2017-03-18 07:03] LABS: CALCIUM 8.5 mg/dl (8.4-10.2); CREATININE 0.96 mg/dl (0.44-1.00); POTASSIUM 3.7 mmol/L (3.5-5.1)
[2017-03-18 07:21] VITALS: BP 133/84; RESP 18
[2017-03-18] MEDS: AL HYDROX/MG HYDROX/SIMETH 30 ML CUP PO PRN ×3 (08:45→21:12)
[2017-03-18] MEDS: NICOTINE (21 MG/24 HR) PATCH TRANSDERM SCH (08:45)
[2017-03-18] MEDS: THIAMINE 100 MG TAB PO SCH (08:45)
[2017-03-18] MEDS: clonAZEPAM 0.5 MG TAB PO SCH ×2 (08:46→20:25)
[2017-03-18] MEDS: GABAPENTIN 400 MG CAP PO SCH ×3 (08:46→20:25)
[2017-03-18] MEDS: VENLAFAXINE (XR) 75 MG CAP PO SCH (08:46)
[2017-03-18] MEDS: ENOXAPARIN 40 MG/0.4 ML SYG SC SCH (08:48)
[2017-03-18] MEDS: OXYCODONE/ACETAMINOPHEN (5/325) TAB PO PRN ×3 (09:22→21:13)
--- NOTE | 2017-03-18 12:32 | CONS ---
Date/Time of Note Date/Time of Note DATE: 03/18/17 TIME: 12:31 Assessment/Plan Assessment/Plan Chief Complaint/Hosp Course Patient is alert lying comfortably in bed afebrile WBC 6.7, no shift BUN 17 creatinine 0.96 Antibiotics: Rocephin day #3 Microbiology: Urine culture pending Well-developed, well-nourished middle-aged white woman who is alert in no distress. Head atraumatic normocephalic sclera nonicteric. Neck is supple trachea midline. Chest rise symmetrical breath sounds clear bilaterally. Heart : S1, S2. Abdomen soft bowel tones present. Extremities without cyanosis. Left elbow with swelling and fluctuance on palpation. Assessment: 1. Urinary tract infection as per urinalysis 2. Left olecranon bursitis 3. Status post dehydration 4. Resolved encephalopathy 5. Anxiety and depression Plan: Remains stable, continue antibiotics, await for urine cultures, consider or to evaluation. Discussed with staff Problems: Consultation Date/Type/Reason Admit Date/Time Mar 15, 2017 at 20:15 Initial Consult Date Type of Consultation: ID Exam/Review of Systems Vital Signs Vitals Vital Signs Date Time Temp Pulse Resp B/P Pulse Ox O2 Delivery O2 Flow Rate FiO2 03/18/17 07:21 97.9 67 18 133/84 95 03/16/17 20:03 Nasal Cannula 2.0 Intake and Output 03/17/17 03/17/17 03/18/17 15:00 23:00 07:00 Intake Total 2525 ml 525 ml Balance 2525 ml 525 ml Results Result Diagram: 03/18/17 0608 03/18/17 0608 Results 24 hrs Laboratory Tests Test 03/18/17 06:08 White Blood Count 6.7 Red Blood Count 2.86 L Hemoglobin 10.1 L Hematocrit 29.2 L Mean Corpuscular Volume 102.1 H Mean Corpuscular Hemoglobin 35.3 H Mean Corpuscular Hemoglobin Concent 34.6 Red Cell Distribution Width 12.7 Platelet Count 159 Mean Platelet Volume 9.5 Neutrophils % 43.5 Lymphocytes % 47.8 Monocytes % 5.5 Eosinophils % 2.8 Basophils % 0.3 Nucleated Red Blood Cells % 0.0 Neutrophils # 2.9 Lymphocytes # 3.2 H Monocytes # 0.4 Eosinophils # 0.2 Basophils # 0.0 Nucleated Red Blood Cells # 0.0 Sodium Level 131 L Potassium Level 3.7 Chloride Level 100 Carbon Dioxide Level 30 Anion Gap 5 L Blood Urea Nitrogen 17 Creatinine 0.96 Glucose Level 82 Calcium Level 8.5 Medications Medications Current Medications Sodium Chloride 1,000 ml @ 75 mls/hr [id number] IV Last administered on 22:07; Admin Dose 75 MLS/HR; Start 03/15/17 at 23:30 Ceftriaxone Sodium (Rocephin) 50 ml @ 100 mls/hr Q24H IVPB Last administered on 03/17/17 20:41; Admin Dose 100 MLS/HR; Start 03/16/17 at 20:00 Enoxaparin Sodium (Lovenox) 40 mg DAILY SC Last administered on 03/18/17 08:48 ; Admin Dose 40 MG; Start 03/16/17 at 09:00 Acetaminophen (Tylenol Tab) 650 mg Q4H PRN PO PAIN AND OR ELEVATED TEMP Last administered on 03/17/17 20:57; Admin Dose 650 MG; Start 03/15/17 at 23:30 Tramadol HCl (Ultram) 50 mg Q6H PRN PO PAIN Last administered on 03/18/17 11: 55; Admin Dose 50 MG; Start 03/16/17 at 14:30 Thiamine HCl (Vitamin B1) 50 mg DAILY PO Last administered on 03/18/17 08:45; Admin Dose 50 MG; Start 03/17/17 at 09:00 Venlafaxine HCl (Effexor Xr) 225 mg QAM PO Last administered on 03/18/17 08:46 ; Admin Dose 225 MG; Start 03/17/17 at 09:00 Oxycodone/ Acetaminophen (Percocet (5/ 325)) 1 tab Q6H PRN PO PAIN Last administered on 03/18/17 09:22; Admin Dose 1 TAB; Start 03/17/17 at 09:00 Gabapentin (Neurontin) 800 mg TID PO Last administered on 03/18/17 08:46; Admin Dose 800 MG; Start 03/17/17 at 09:00 Zolpidem Tartrate (Ambien) 5 mg HS PRN PO INSOMNIA Last administered on 00:10; Admin Dose 5 MG; Start 03/17/17 at 09:00 Clonazepam (Klonopin) 1 mg BID PO Last administered on 03/18/17 08:46; Admin Dose 1 MG; Start 03/17/17 at 09:00 Nicotine (Nicoderm 21 Mg/ 24hr) 1 patch DAILY TRANSDERM Last administered on 08:45; Admin Dose 1 PATCH; Start 03/17/17 at 09:30 Al Hydrox/Mg Hydrox/Simethicone (Mag-Al Plus) 30 ml Q6H PRN PO GASTROINTESTINAL UPSET Last administered on 03/18/17 08:45; Admin Dose 30 ML; Start 03/17/17 at 21:00 Pantoprazole (Protonix Tab) 40 mg DAILY@06 PO ; Start 03/18/17 at 12:00 PIPPA ESPINOZA NP Mar 18, 2017 12:32
[2017-03-18] MEDS: PANTOPRAZOLE (EC) 40 MG TAB PO SCH (12:34)
--- NOTE | 2017-03-18 12:36 | PN ---
Date/Time of Note Date/Time of Note DATE: 03/18/17 TIME: 12:32 Assessment/Plan VTE Prophylaxis VTE Prophylaxis Intervention: other Lines/Catheters IV Catheter Type (from [facility]): Peripheral IV Urinary Cath still in place: No Assessment/Plan Assessment/Plan - Left left elbow possible bursitis -Or to consult, Dr. Rock notified -Ultrasound of left elbow ordered -X-ray left elbow to rule out any fracture -Complain of headache -CT brain without contrast to follow-up -UTI per UA, continue antibiotics, follow-up on cultures, Dr. Seals is following an infection disease consultation. -Acute kidney injury, continue IV fluids, continue to monitor BUN and creatinine. -Hyponatremia, resolved -Dehydration, resolved -Acute metabolic encephalopathy -Anxiety and depression Further recommendations based on clinical course. Plan of care discussed with Dr. Pineda. Subjective 24 Hr Interval Summary Free Text/Dictation Patient is resting in bed, afebrile, Rocephin for UTI, complain of left elbow pain-ultrasound and x-ray ordered, follow-up. Complaint of headache-will do CT brain without contrast, follow-up. Discussed with the staff. Eyes: no complaints ENT: no complaints Respiratory: no complaints Genitourinary: no complaints Musculoskeletal: bone/joint pain Exam/Review of Systems Vital Signs Vitals Vital Signs Date Time Temp Pulse Resp B/P Pulse Ox O2 Delivery O2 Flow Rate FiO2 03/18/17 07:21 97.9 67 18 133/84 95 03/16/17 20:03 Nasal Cannula 2.0 Intake and Output 03/17/17 03/17/17 03/18/17 15:00 23:00 07:00 Intake Total 2525 ml 525 ml Balance 2525 ml 525 ml Exam Constitutional: alert, well developed Respiratory: clear to auscultation, normal air movement Cardiovascular: nl pulses, regular rate and rhythm Gastrointestinal: non-tender, soft Musculoskeletal: swelling (Left elbow) Extremities: normal pulses Neurological: nl speech Results Result Diagram: 03/18/17 0608 03/18/17 0608 Results 24 hrs Laboratory Tests Test 03/18/17 06:08 White Blood Count 6.7 Red Blood Count 2.86 L Hemoglobin 10.1 L Hematocrit 29.2 L Mean Corpuscular Volume 102.1 H Mean Corpuscular Hemoglobin 35.3 H Mean Corpuscular Hemoglobin Concent 34.6 Red Cell Distribution Width 12.7 Platelet Count 159 Mean Platelet Volume 9.5 Neutrophils % 43.5 Lymphocytes % 47.8 Monocytes % 5.5 Eosinophils % 2.8 Basophils % 0.3 Nucleated Red Blood Cells % 0.0 Neutrophils # 2.9 Lymphocytes # 3.2 H Monocytes # 0.4 Eosinophils # 0.2 Basophils # 0.0 Nucleated Red Blood Cells # 0.0 Sodium Level 131 L Potassium Level 3.7 Chloride Level 100 Carbon Dioxide Level 30 Anion Gap 5 L Blood Urea Nitrogen 17 Creatinine 0.96 Glucose Level 82 Calcium Level 8.5 Medications Medications Current Medications Sodium Chloride 1,000 ml @ 75 mls/hr [id number] IV Last administered on 22:07; Admin Dose 75 MLS/HR; Start 03/15/17 at 23:30 Ceftriaxone Sodium (Rocephin) 50 ml @ 100 mls/hr Q24H IVPB Last administered on 03/17/17 20:41; Admin Dose 100 MLS/HR; Start 03/16/17 at 20:00 Enoxaparin Sodium (Lovenox) 40 mg DAILY SC Last administered on 03/18/17 08:48 ; Admin Dose 40 MG; Start 03/16/17 at 09:00 Acetaminophen (Tylenol Tab) 650 mg Q4H PRN PO PAIN AND OR ELEVATED TEMP Last administered on 03/17/17 20:57; Admin Dose 650 MG; Start 03/15/17 at 23:30 Tramadol HCl (Ultram) 50 mg Q6H PRN PO PAIN Last administered on 03/18/17 11: 55; Admin Dose 50 MG; Start 03/16/17 at 14:30 Thiamine HCl (Vitamin B1) 50 mg DAILY PO Last administered on 03/18/17 08:45; Admin Dose 50 MG; Start 03/17/17 at 09:00 Venlafaxine HCl (Effexor Xr) 225 mg QAM PO Last administered on 03/18/17 08:46 ; Admin Dose 225 MG; Start 03/17/17 at 09:00 Oxycodone/ Acetaminophen (Percocet (5/ 325)) 1 tab Q6H PRN PO PAIN Last administered on 03/18/17 09:22; Admin Dose 1 TAB; Start 03/17/17 at 09:00 Gabapentin (Neurontin) 800 mg TID PO Last administered on 03/18/17 08:46; Admin Dose 800 MG; Start 03/17/17 at 09:00 Zolpidem Tartrate (Ambien) 5 mg HS PRN PO INSOMNIA Last administered on 00:10; Admin Dose 5 MG; Start 03/17/17 at 09:00 Clonazepam (Klonopin) 1 mg BID PO Last administered on 03/18/17 08:46; Admin Dose 1 MG; Start 03/17/17 at 09:00 Nicotine (Nicoderm 21 Mg/ 24hr) 1 patch DAILY TRANSDERM Last administered on 08:45; Admin Dose 1 PATCH; Start 03/17/17 at 09:30 Al Hydrox/Mg Hydrox/Simethicone (Mag-Al Plus) 30 ml Q6H PRN PO GASTROINTESTINAL UPSET Last administered on 03/18/17 08:45; Admin Dose 30 ML; Start 03/17/17 at 21:00 Pantoprazole (Protonix Tab) 40 mg DAILY@06 PO ; Start 03/18/17 at 12:00 ANALY CAVAZOS Mar 18, 2017 12:36
--- NOTE | 2017-03-18 13:36 | RADRPT ---
PROCEDURE: CT brain without contrast CLINICAL INDICATION: Headaches TECHNIQUE: CT of the brain without contrast was performed on a multidetector CT scanner, with multi planar reformats. One or more of the following dose reduction techniques were used: Automated expos ure control, adjustment in mA and / or kV according to patient size, use of iterative reconstructive technique. CTDIvol = 45 mGy; DLP = 720 mGy-cm. COMPARISON: CT brain 07/27/2008 FINDINGS: No acute intracranial hemorrhage is identified. No extra-axial fluid collection is seen. There is no mass effect. No midline shift is identified. Ventricles and sulci are within normal limits for size and configuration. The density of the brain is unremarkable. Worthington-white differentiation is preserved. Osseous structures are unremarkable. Mild scattered bilateral ethmoid air cell mucosal thickening a nd a small right sphenoid sinus mucous retention cysts are seen. IMPRESSION: 1. No evidence of acute intracranial pathology; unremarkable noncontrast CT appearance of the brain . 2. Paranasal sinus disease described above. RPTAT: VV .Bob Martinez MD, MD Date Time Electronically viewed and signed by .Bob Martinez MD, on 03/18/2017 13:36 .O/
--- NOTE | 2017-03-18 14:06 | RADRPT ---
PROCEDURE: CR Left Elbow CLINICAL INDICATION: Pain TECHNIQUE: AP, lateral, and an oblique radiographs were submitted. COMPARISON: None FINDINGS: Osseous Structures: The osseous elements appear well mineralized and intact. Joint Spaces: The joint spaces are well maintained. No joint effusion is evident. Soft Tissues: There is soft tissue swelling posterior to the olecranon compatible with olecranon bur sitis. IMPRESSION: Olecranon bursitis. Physician Renny Date Time Electronically viewed and signed by Valentino Taveras Physician on 03/18/2017 14:06 /
[2017-03-18] MEDS: SOD CHLORIDE 0.9% 1,000 ML IV SCH (15:25)
[2017-03-18 20:04] VITALS: BP 124/60; RESP 18
[2017-03-18 20:16] VITALS: BP 145/85; RESP 18
[2017-03-18] MEDS: CEFTRIAXONE 1 GM/50 ML (PMX) 50 ML IVPB SCH (20:25)
[2017-03-19] MEDS: traMADol 50 MG TAB PO PRN ×3 (00:15→18:35)
[2017-03-19 02:00] VITALS: BP 153/83; RESP 18
[2017-03-19] MEDS: SOD CHLORIDE 0.9% 1,000 ML IV SCH ×3 (03:07→21:37)
[2017-03-19 05:47] LABS: ADD SCAN DIFF NO
[2017-03-19 05:49] LABS: BASOPHILS % 0.6 % (0.0-2.0); EOSINOPHILS # 0.3 10^3/ul (0.0-0.5); EOSINOPHILS % 4.5 % (0.0-7.0); HEMATOCRIT 30.5 % (37.0-47.0); HEMOGLOBIN 10.6 g/dl (12.0-16.0); MEAN CORPUSCULAR HEMOGLOBIN 35.5 pg (29.0-33.0); MEAN CORPUSCULAR HGB CONC 34.8 g/dl (32.0-37.0); MEAN PLATELET VOLUME 9.5 fl (7.4-10.4); MONOCYTE # 0.4 10^3/ul (0.3-0.9); MONOCYTES % 5.9 % (0.0-11.0); NEUTROPHIL # 2.9 10^3/ul (1.6-7.5); NEUTROPHILS % 43.7 % (39.0-77.0); PLATELET COUNT 180 10^3/UL (140-415); RED BLOOD COUNT 2.99 10^6/ul (4.20-5.40); RED CELL DISTRIBUTION WIDTH 12.6 % (11.5-14.5); WHITE BLOOD COUNT 6.6 10^3/ul (4.8-10.8)
[2017-03-19] MEDS: PANTOPRAZOLE (EC) 40 MG TAB PO SCH ×3 (06:00→08:32)
[2017-03-19 06:22] LABS: CALCIUM 8.5 mg/dl (8.4-10.2); CREATININE 0.88 mg/dl (0.44-1.00); POTASSIUM 3.8 mmol/L (3.5-5.1)
[2017-03-19 08:00] VITALS: BP 136/85; RESP 16
[2017-03-19] MEDS: OXYCODONE/ACETAMINOPHEN (5/325) TAB PO PRN ×3 (08:33→21:37)
[2017-03-19] MEDS: AL HYDROX/MG HYDROX/SIMETH 30 ML CUP PO PRN ×2 (08:33→15:03)
[2017-03-19] MEDS: THIAMINE 100 MG TAB PO SCH (08:35)
[2017-03-19] MEDS: clonAZEPAM 0.5 MG TAB PO SCH ×2 (08:36→20:37)
[2017-03-19] MEDS: GABAPENTIN 400 MG CAP PO SCH ×3 (08:36→20:37)
[2017-03-19] MEDS: NICOTINE (21 MG/24 HR) PATCH TRANSDERM SCH (08:37)
[2017-03-19] MEDS: VENLAFAXINE (XR) 75 MG CAP PO SCH (08:37)
[2017-03-19] MEDS: ENOXAPARIN 40 MG/0.4 ML SYG SC SCH (08:44)
--- NOTE | 2017-03-19 13:06 | PN ---
Date/Time of Note Date/Time of Note DATE: 03/19/17 TIME: 13:03 Assessment/Plan VTE Prophylaxis VTE Prophylaxis Intervention: LMWH Lines/Catheters IV Catheter Type (from [facility], [place]): Peripheral IV Urinary Cath still in place: No Assessment/Plan Chief Complaint/Hosp Course Patient remains hemodynamically stable, alert and oriented 3. Assessment/Plan -Olecranon bursitis, Dr. Rock is asked to see patient in orthopedic surgery consultation. -UTI per UA, continue antibiotics, follow-up on cultures, Dr. Seals is following in infection disease consultation. -Acute kidney injury, continue IV fluids, continue to monitor BUN and creatinine. -Hyponatremia, resolved -Dehydration, resolved -Acute metabolic encephalopathy, resolving. -Anxiety and depression Further recommendations based on clinical course. Plan of care discussed with Dr. Pineda. Problems: Exam/Review of Systems Vital Signs Vitals Vital Signs Date Time Temp Pulse Resp B/P Pulse Ox O2 Delivery O2 Flow Rate FiO2 03/19/17 08:00 98.0 69 16 136/85 98 03/16/17 20:03 Nasal Cannula 2.0 Intake and Output 03/18/17 03/18/17 03/19/17 15:00 23:00 07:00 Intake Total 920 ml 2460 ml 1430 ml Balance 920 ml 2460 ml 1430 ml Exam Constitutional: alert, oriented Psych: depression Head: atraumatic, normocephalic Neck: supple Respiratory: normal air movement Cardiovascular: nl pulses Gastrointestinal: non-tender, soft Musculoskeletal: nl extremities to inspection Extremities: normal pulses Neurological: nl mental status Skin: nl turgor Results Result Diagram: 03/19/1722 03/19/17 0522 Results 24 hrs Laboratory Tests Test 03/19/17 05:22 White Blood Count 6.6 Red Blood Count 2.99 L Hemoglobin 10.6 L Hematocrit 30.5 L Mean Corpuscular Volume 102.0 H Mean Corpuscular Hemoglobin 35.5 H Mean Corpuscular Hemoglobin Concent 34.8 Red Cell Distribution Width 12.6 Platelet Count 180 Mean Platelet Volume 9.5 Neutrophils % 43.7 Lymphocytes % 45.0 Monocytes % 5.9 Eosinophils % 4.5 Basophils % 0.6 Nucleated Red Blood Cells % 0.0 Neutrophils # 2.9 Lymphocytes # 3.0 H Monocytes # 0.4 Eosinophils # 0.3 Basophils # 0.0 Nucleated Red Blood Cells # 0.0 Sodium Level 136 Potassium Level 3.8 Chloride Level 103 Carbon Dioxide Level 28 Anion Gap 9 Blood Urea Nitrogen 14 Creatinine 0.88 Glucose Level 96 Calcium Level 8.5 Medications Medications Current Medications Sodium Chloride 1,000 ml @ 75 mls/hr [id number] IV Last administered on 03:07; Admin Dose 75 MLS/HR; Start 03/15/17 at 23:30 Ceftriaxone Sodium (Rocephin) 50 ml @ 100 mls/hr Q24H IVPB Last administered on 03/18/17 20:25; Admin Dose 100 MLS/HR; Start 03/16/17 at 20:00 Enoxaparin Sodium (Lovenox) 40 mg DAILY SC Last administered on 03/19/17 08:44 ; Admin Dose 40 MG; Start 03/16/17 at 09:00 Acetaminophen (Tylenol Tab) 650 mg Q4H PRN PO PAIN AND OR ELEVATED TEMP Last administered on 03/17/17 20:57; Admin Dose 650 MG; Start 03/15/17 at 23:30 Tramadol HCl (Ultram) 50 mg Q6H PRN PO PAIN Last administered on 03/19/17 11: 53; Admin Dose 50 MG; Start 03/16/17 at 14:30 Thiamine HCl (Vitamin B1) 50 mg DAILY PO Last administered on 03/19/17 08:35; Admin Dose 50 MG; Start 03/17/17 at 09:00 Venlafaxine HCl (Effexor Xr) 225 mg QAM PO Last administered on 03/19/17 08:37 ; Admin Dose 225 MG; Start 03/17/17 at 09:00 Oxycodone/ Acetaminophen (Percocet (5/ 325)) 1 tab Q6H PRN PO PAIN Last administered on 03/19/17 08:33; Admin Dose 1 TAB; Start 03/17/17 at 09:00 Gabapentin (Neurontin) 800 mg TID PO Last administered on 03/19/17 11:53; Admin Dose 800 MG; Start 03/17/17 at 09:00 Zolpidem Tartrate (Ambien) 5 mg HS PRN PO INSOMNIA Last administered on 22:48; Admin Dose 5 MG; Start 03/17/17 at 09:00 Clonazepam (Klonopin) 1 mg BID PO Last administered on 03/19/17 08:36; Admin Dose 1 MG; Start 03/17/17 at 09:00 Nicotine (Nicoderm 21 Mg/ 24hr) 1 patch DAILY TRANSDERM Last administered on 08:37; Admin Dose 1 PATCH; Start 03/17/17 at 09:30 Al Hydrox/Mg Hydrox/Simethicone (Mag-Al Plus) 30 ml Q6H PRN PO GASTROINTESTINAL UPSET Last administered on 03/19/17 08:33; Admin Dose 30 ML; Start 03/17/17 at 21:00 Pantoprazole (Protonix Tab) 40 mg DAILY@06 PO Last administered on 03/19/17 08 :32; Admin Dose 40 MG; Start 03/18/17 at 12:00 DENNIS JUAN Mar 19, 2017 13:05
--- NOTE | 2017-03-19 14:31 | CONS ---
Date/Time of Note Date/Time of Note DATE: 03/19/17 TIME: 14:29 Assessment/Plan Assessment/Plan Chief Complaint/Hosp Course Patient is alert lying comfortably in bed afebrile Antibiotics: Rocephin day #4 Microbiology: Urine culture growing strep Well-developed, well-nourished middle-aged white woman who is alert in no distress. Head atraumatic normocephalic sclera nonicteric. Neck is supple trachea midline. Chest rise symmetrical breath sounds clear bilaterally. Heart : S1, S2. Abdomen soft bowel tones present. Extremities without cyanosis. Left elbow with swelling and fluctuance on palpation. Assessment: 1. Urinary tract infection 2. Left olecranon bursitis 3. Status post dehydration 4. Resolved encephalopathy 5. Anxiety and depression Plan: Remains stable, continue antibiotics, consider or to evaluation, anticipate discharge on oral antibiotics to complete 7 days treatment after Orto evaluation if patient does not need treatment for left elbow bursitis. Discussed with staff Problems: Consultation Date/Type/Reason Admit Date/Time Mar 15, 2017 at 20:15 Type of Consultation: ID Exam/Review of Systems Vital Signs Vitals Vital Signs Date Time Temp Pulse Resp B/P Pulse Ox O2 Delivery O2 Flow Rate FiO2 03/19/17 08:00 98.0 69 16 136/85 98 03/16/17 20:03 Nasal Cannula 2.0 Intake and Output 03/18/17 03/18/17 03/19/17 15:00 23:00 07:00 Intake Total 920 ml 2460 ml 1430 ml Balance 920 ml 2460 ml 1430 ml Results Result Diagram: 03/19/17 0522 03/19/17 0522 Results 24 hrs Laboratory Tests Test 03/19/17 05:22 White Blood Count 6.6 Red Blood Count 2.99 L Hemoglobin 10.6 L Hematocrit 30.5 L Mean Corpuscular Volume 102.0 H Mean Corpuscular Hemoglobin 35.5 H Mean Corpuscular Hemoglobin Concent 34.8 Red Cell Distribution Width 12.6 Platelet Count 180 Mean Platelet Volume 9.5 Neutrophils % 43.7 Lymphocytes % 45.0 Monocytes % 5.9 Eosinophils % 4.5 Basophils % 0.6 Nucleated Red Blood Cells % 0.0 Neutrophils # 2.9 Lymphocytes # 3.0 H Monocytes # 0.4 Eosinophils # 0.3 Basophils # 0.0 Nucleated Red Blood Cells # 0.0 Sodium Level 136 Potassium Level 3.8 Chloride Level 103 Carbon Dioxide Level 28 Anion Gap 9 Blood Urea Nitrogen 14 Creatinine 0.88 Glucose Level 96 Calcium Level 8.5 Medications Medications Current Medications Sodium Chloride 1,000 ml @ 75 mls/hr [id number] IV Last administered on 03:07; Admin Dose 75 MLS/HR; Start 03/15/17 at 23:30 Ceftriaxone Sodium (Rocephin) 50 ml @ 100 mls/hr Q24H IVPB Last administered on 03/18/17 20:25; Admin Dose 100 MLS/HR; Start 03/16/17 at 20:00 Enoxaparin Sodium (Lovenox) 40 mg DAILY SC Last administered on 03/19/17 08:44 ; Admin Dose 40 MG; Start 03/16/17 at 09:00 Acetaminophen (Tylenol Tab) 650 mg Q4H PRN PO PAIN AND OR ELEVATED TEMP Last administered on 03/17/17 20:57; Admin Dose 650 MG; Start 03/15/17 at 23:30 Tramadol HCl (Ultram) 50 mg Q6H PRN PO PAIN Last administered on 03/19/17 11: 53; Admin Dose 50 MG; Start 03/16/17 at 14:30 Thiamine HCl (Vitamin B1) 50 mg DAILY PO Last administered on 03/19/17 08:35; Admin Dose 50 MG; Start 03/17/17 at 09:00 Venlafaxine HCl (Effexor Xr) 225 mg QAM PO Last administered on 03/19/17 08:37 ; Admin Dose 225 MG; Start 03/17/17 at 09:00 Oxycodone/ Acetaminophen (Percocet (5/ 325)) 1 tab Q6H PRN PO PAIN Last administered on 03/19/17 08:33; Admin Dose 1 TAB; Start 03/17/17 at 09:00 Gabapentin (Neurontin) 800 mg TID PO Last administered on 03/19/17 11:53; Admin Dose 800 MG; Start 03/17/17 at 09:00 Zolpidem Tartrate (Ambien) 5 mg HS PRN PO INSOMNIA Last administered on 22:48; Admin Dose 5 MG; Start 03/17/17 at 09:00 Clonazepam (Klonopin) 1 mg BID PO Last administered on 03/19/17 08:36; Admin Dose 1 MG; Start 03/17/17 at 09:00 Nicotine (Nicoderm 21 Mg/ 24hr) 1 patch DAILY TRANSDERM Last administered on 08:37; Admin Dose 1 PATCH; Start 03/17/17 at 09:30 Al Hydrox/Mg Hydrox/Simethicone (Mag-Al Plus) 30 ml Q6H PRN PO GASTROINTESTINAL UPSET Last administered on 03/19/17 08:33; Admin Dose 30 ML; Start 03/17/17 at 21:00 Pantoprazole (Protonix Tab) 40 mg DAILY@06 PO Last administered on 03/19/17 08 :32; Admin Dose 40 MG; Start 03/18/17 at 12:00 PIPPA ESPINOZA NP Mar 19, 2017 14:31
[2017-03-19 15:12] VITALS: BP 151/87; RESP 18
[2017-03-19] MEDS ORDERED: hydrALAzine 20 MG INJ IV PRN (16:00)
[2017-03-19] MEDS: LOSARTAN 50 MG TAB PO SCH (18:00)
[2017-03-19] MEDS: CHLORTHALIDONE 25 MG TAB PO SCH (18:00)
[2017-03-19] MEDS: DIPHENHYDRAMINE 25 MG CAP PO PRN ×2 (18:00→23:41)
[2017-03-19 19:17] VITALS: BP 155/81; RESP 18
[2017-03-19 19:24] VITALS: BP 119/63; RESP 18
[2017-03-19] MEDS: DOCUSATE SODIUM 100 MG CAP PO SCH (21:36)
[2017-03-19] MEDS: CEFTRIAXONE 1 GM/50 ML (PMX) 50 ML IVPB SCH (21:44)
[2017-03-19] MEDS: ZOLPIDEM 5 MG TAB PO PRN (23:09)
[2017-03-20 02:00] VITALS: BP 128/79; RESP 18
[2017-03-20 07:32] LABS: CREATININE 0.93 mg/dl (0.44-1.00); POTASSIUM 4.4 mmol/L (3.5-5.1)
[2017-03-20 08:17] VITALS: BP 170/91; RESP 16
[2017-03-20] MEDS: LOSARTAN 50 MG TAB PO SCH (08:58)
[2017-03-20] MEDS: GABAPENTIN 400 MG CAP PO SCH ×3 (08:58→20:12)
[2017-03-20] MEDS: VENLAFAXINE (XR) 75 MG CAP PO SCH (08:58)
[2017-03-20] MEDS: PANTOPRAZOLE (EC) 40 MG TAB PO SCH (08:58)
[2017-03-20] MEDS: AL HYDROX/MG HYDROX/SIMETH 30 ML CUP PO PRN (08:59)
[2017-03-20] MEDS: clonAZEPAM 0.5 MG TAB PO SCH ×2 (08:59→20:12)
[2017-03-20] MEDS: THIAMINE 100 MG TAB PO SCH (08:59)
[2017-03-20] MEDS: CHLORTHALIDONE 25 MG TAB PO SCH (08:59)
[2017-03-20] MEDS: NICOTINE (21 MG/24 HR) PATCH TRANSDERM SCH (09:00)
[2017-03-20] MEDS: OXYCODONE/ACETAMINOPHEN (5/325) TAB PO PRN ×3 (09:00→22:24)
[2017-03-20] MEDS: ENOXAPARIN 40 MG/0.4 ML SYG SC SCH (09:00)
[2017-03-20] MEDS: SOD CHLORIDE 0.9% 1,000 ML IV SCH ×2 (10:10→13:14)
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
[2017-03-20] MEDS: traMADol 50 MG TAB PO PRN ×2 (13:13→19:33)
[2017-03-20] MEDS ORDERED: FOSFOMYCIN 3 GM PACKET PO ONE (14:00)
[2017-03-20] MEDS: DIPHENHYDRAMINE 25 MG CAP PO PRN (14:45)
[2017-03-20] MEDS: CEPHALEXIN 500 MG CAP PO SCH ×2 (14:45→22:24)
--- NOTE | 2017-03-20 14:51 | PN ---
Date/Time of Note Date/Time of Note DATE: 03/20/17 TIME: 14:50 Assessment/Plan VTE Prophylaxis VTE Prophylaxis Intervention: other Lines/Catheters IV C[facility] Type (from [facility] Peripheral IV Urinary Cath still in place: No Assessment/Plan Assessment/Plan Patient remains hemodynamically stable, alert and oriented 3. Assessment/Plan -Olecranon bursitis, Dr. Rock is asked to see patient in orthopedic surgery consultation. -UTI per UA, continue antibiotics, follow-up on cultures, Dr. Seals is following in infection disease consultation. -Acute kidney injury, continue IV fluids, continue to monitor BUN and creatinine. -Hyponatremia, resolved -Dehydration, resolved -Acute metabolic encephalopathy, resolving. -Anxiety and depression Further recommendations based on clinical course. Plan of care discussed with Dr. Pineda. Subjective 24 Hr Interval Summary Cardiovascular: no complaints Gastrointestinal: no complaints Genitourinary: no complaints Musculoskeletal: swelling (Left elbow-status post drainage) Exam/Review of Systems Vital Signs Vitals Vital Signs Date Time Temp Pulse Resp B/P Pulse Ox O2 Delivery O2 Flow Rate FiO2 03/20/17 08:17 98.6 65 16 170/91 98 03/16/17 20:03 Nasal Cannula 2.0 Intake and Output 03/19/17 03/19/17 03/20/17 15:00 23:00 07:00 Intake Total 2270 ml 1325 ml Balance 2270 ml 1325 ml Exam Constitutional: alert, oriented, well developed Respiratory: clear to auscultation, normal air movement Cardiovascular: nl pulses, regular rate and rhythm Gastrointestinal: non-tender, soft Extremities: normal pulses Skin: other Results Result Diagram: 03/19/17 0522 03/20/17 0535 Results 24 hrs Laboratory Tests Test 03/20/17 05:35 Sodium Level 144 Potassium Level 4.4 Chloride Level 102 Carbon Dioxide Level 29 Anion Gap 17 #H Blood Urea Nitrogen 15 Creatinine 0.93 Glucose Level 77 Calcium Level 9.0 Medications Medications Current Medications Sodium Chloride (NS) 1,000 ml @ 75 mls/hr [id number] IV Last administered on 03/20 13:14; Admin Dose 75 MLS/HR; Start 03/15/17 at 23:30 Enoxaparin Sodium (Lovenox) 40 mg DAILY SC Last administered on 03/19/17 08:44 ; Admin Dose 40 MG; Start 03/16/17 at 09:00 Acetaminophen (Tylenol Tab) 650 mg Q4H PRN PO PAIN AND OR ELEVATED TEMP Last administered on 03/17/17 20:57; Admin Dose 650 MG; Start 03/15/17 at 23:30 Tramadol HCl (Ultram) 50 mg Q6H PRN PO PAIN Last administered on 03/20/17 13: 13; Admin Dose 50 MG; Start 03/16/17 at 14:30 Thiamine HCl (Vitamin B1) 50 mg DAILY PO Last administered on 03/20/17 08:59; Admin Dose 50 MG; Start 03/17/17 at 09:00 Venlafaxine HCl (Effexor Xr) 225 mg QAM PO Last administered on 03/20/17 08:58 ; Admin Dose 225 MG; Start 03/17/17 at 09:00 Oxycodone/ Acetaminophen (Percocet (5/ 325)) 1 tab Q6H PRN PO PAIN Last administered on 03/20/17 09:00; Admin Dose 1 TAB; Start 03/17/17 at 09:00 Gabapentin (Neurontin) 800 mg TID PO Last administered on 03/20/17 13:12; Admin Dose 800 MG; Start 03/17/17 at 09:00 Zolpidem Tartrate (Ambien) 5 mg HS PRN PO INSOMNIA Last administered on 23:09; Admin Dose 5 MG; Start 03/17/17 at 09:00 Clonazepam (Klonopin) 1 mg BID PO Last administered on 03/20/17 08:59; Admin Dose 1 MG; Start 03/17/17 at 09:00 Nicotine (Nicoderm 21 Mg/ 24hr) 1 patch DAILY TRANSDERM Last administered on 09:00; Admin Dose 1 PATCH; Start 03/17/17 at 09:30 Al Hydrox/Mg Hydrox/Simethicone (Mag-Al Plus) 30 ml Q6H PRN PO GASTROINTESTINAL UPSET Last administered on 03/20/17 08:59; Admin Dose 30 ML; Start 03/17/17 at 21:00 Pantoprazole (Protonix Tab) 40 mg DAILY@06 PO Last administered on 03/20/17 08 :58; Admin Dose 40 MG; Start 03/18/17 at 12:00 Diphenhydramine HCl (Benadryl) 25 mg Q6H PRN PO ITCHING Last administered on 14:45; Admin Dose 25 MG; Start 03/19/17 at 16:00 Hydralazine HCl (Apresoline) 10 mg Q6H PRN IV SBP GREATER THAN 170; Start 03/19 at 16:00 Losartan Potassium (Cozaar) 50 mg DAILY PO Last administered on 03/20/17 08:58 ; Admin Dose 50 MG; Start 03/19/17 at 17:00 Chlorthalidone (Hygroton) 25 mg DAILY PO Last administered on 03/20/17 08:59; Admin Dose 25 MG; Start 03/19/17 at 18:00 Docusate Sodium (Colace) 200 mg HS PO Last administered on 03/19/17 21:36; Admin Dose 200 MG; Start 03/19/17 at 21:00 Phenyleph/Shark Oil/Min Oil/Petrol (Formulation R Oint) 1 applic BID AR ; Start 03/20/17 at 21:00 Cephalexin (Keflex) 500 mg Q8 PO Last administered on 03/20/17 14:45; Admin Dose 500 MG; Start 03/20/17 at 14:00; Stop 03/22/17 at 23:00 ANALY CAVAZOS Mar 20, 2017 14:51
[2017-03-20 16:36] VITALS: BP 166/92; RESP 16
[2017-03-20] MEDS: ACETAMINOPHEN 325 MG TAB PO PRN (18:05)
[2017-03-20] MEDS ORDERED: VITAMIN A & D 5 GM OINT PACKET TOP ONE (20:05)
[2017-03-20] MEDS: DOCUSATE SODIUM 100 MG CAP PO SCH (20:12)
[2017-03-20] MEDS: PE/SHARK OIL/MO/PETROL 30 GM OINT PR SCH (22:25)
[2017-03-21] MEDS: DIPHENHYDRAMINE 25 MG CAP PO PRN (00:19)
[2017-03-21] MEDS: ACETAMINOPHEN 325 MG TAB PO PRN (00:19)
[2017-03-21] MEDS: ZOLPIDEM 5 MG TAB PO PRN (01:18)
[2017-03-21] MEDS: traMADol 50 MG TAB PO PRN ×2 (02:35→12:45)
[2017-03-21 02:36] VITALS: BP 135/87; RESP 16
[2017-03-21] MEDS: CEPHALEXIN 500 MG CAP PO SCH ×2 (06:33→15:13)
[2017-03-21 08:01] VITALS: BP 135/84; RESP 20
[2017-03-21] MEDS: ENOXAPARIN 40 MG/0.4 ML SYG SC SCH (09:00)
[2017-03-21] MEDS: PE/SHARK OIL/MO/PETROL 30 GM OINT PR SCH (09:00)
[2017-03-21] MEDS: THIAMINE 100 MG TAB PO SCH (10:08)
[2017-03-21] MEDS: CHLORTHALIDONE 25 MG TAB PO SCH (10:08)
[2017-03-21] MEDS: LOSARTAN 50 MG TAB PO SCH (10:08)
[2017-03-21] MEDS: clonAZEPAM 0.5 MG TAB PO SCH (10:09)
[2017-03-21] MEDS: VENLAFAXINE (XR) 75 MG CAP PO SCH (10:09)
[2017-03-21] MEDS: GABAPENTIN 400 MG CAP PO SCH ×2 (10:09→12:44)
[2017-03-21] MEDS: NICOTINE (21 MG/24 HR) PATCH TRANSDERM SCH (10:10)
[2017-03-21] MEDS: OXYCODONE/ACETAMINOPHEN (5/325) TAB PO PRN (10:10)
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
--- NOTE | 2017-03-21 10:54 | PDOCDIS ---
Discharge Instructions CONDITION Patient Condition: Stable HOME CARE INSTRUCTIONS: Special Diet: Regular ACTIVITY: Activity Restrictions: Slowly Increase Activity Rest between Activity Avoid heavy lifting Do not operate Machinery Do not operate Power Tool Avoid Heavy Housework Bathing Restrictions: Sponge Bath FOLLOW UP/APPOINTMENTS Follow-up Plan Follow with primary in 1 week Follow-up with ORTHO on ortho needle aspiration micro results from 03/19/17 -Keflex 500 mg po TID x 3 days -Naproxen 250mg po BID 10 days w/increase H20 to avoid NSAID + dehydration ROWAN -Smoking cessation strongly advocated -Avoid elbow pressure resting on table. - Call 911 or go to the nearest hospital if the symptoms get worse. Patient verbalized understanding of discharge instructions. Discussed with Dr. Pineda , staff, patient. . ANALY CAVAZOS Mar 21, 2017 10:54
[2017-03-21] MEDS ORDERED: CEPH-443 PO ×2 (11:01→12:24)
[2017-03-21] MEDS ORDERED: NAPR-260 PO (12:39)
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
[2017-03-21 14:36] VITALS: BP 128/82; RESP 18
== END 2017-03-21 16:40 | disposition home or self-care (01) | DRG 689 ==
LOC: E/R 18:20 → MS2 20:15
PROVIDERS: ADMIT Internal Medicine; ATTEND Internal Medicine
DX: N39.0 Urinary tract infection, site not specified (principal); G93.41 Metabolic encephalopathy; N17.9 Acute kidney failure, unspecified; I95.9 Hypotension, unspecified; E87.1 Hypo-osmolality and hyponatremia; B96.89 Other specified bacterial agents as the cause of diseases classified elsewhere; E86.0 Dehydration; F41.9 Anxiety disorder, unspecified; F32.9 Major depressive disorder, single episode, unspecified; Z86.711 Personal history of pulmonary embolism; F17.210 Nicotine dependence, cigarettes, uncomplicated; M70.22 Olecranon bursitis, left elbow; J32.9 Chronic sinusitis, unspecified; F41.0 Panic disorder [episodic paroxysmal anxiety]; R33.9 Retention of urine, unspecified
CPT/HCPCS: 70450; 71010; 80048; 80053; 80306; 80307; 81001; 82550; 82553; 82962; 83690; 84484; 85025; 85610; 87070; 87086; 93005; 96374; J0696; J1650; J2405; J7030

== ENCOUNTER 2017-03-29 13:42 | Inpatient (IN) | payer OTHER ==
[~2017-03-29] VITALS: Ht 172.7 cm; Wt 81.0 kg
[2017-03-29] MEDS: SOD CHLORIDE 0.9% 1,000 ML IV SCH (03:00)
[~2017-03-29 13:42] MED LIST changes: +CEPH-443 PO; +NAPR-260 PO
[2017-03-29] MEDS ORDERED: SODIUM CHLORIDE 0.9% 1L BAG IV* STA (14:47)
--- NOTE | 2017-03-29 15:22 | RADRPT ---
PROCEDURE: Chest Radiograph. CLINICAL INDICATION: sepsis TECHNIQUE: Single frontal chest radiograph. COMPARISON: Chest radiograph 07/27/2000 a FINDINGS: The cardiomediastinal silhouette is within normal limits. No infiltrate or effusion is seen. Th e bones are intact. IMPRESSION: 1. Unremarkable chest radiograph. RPTAT: AA .Rip Plascencia MD, MD Date Time Electronically viewed and signed by .Rip Plascencia MD, on 03/29/2017 15:22 .B/
[2017-03-29] MEDS ORDERED: VENL75TA2 PO (15:39)
[2017-03-29] MEDS ORDERED: VENL150C PO (15:39)
[2017-03-29] MEDS ORDERED: BIOT10004 PO (15:40)
[2017-03-29 15:41] LABS: BASOPHIL # 0.1 10^3/ul (0.0-0.1); BASOPHILS % 0.6 % (0.0-2.0); EOSINOPHILS # 0.1 10^3/ul (0.0-0.5); EOSINOPHILS % 0.6 % (0.0-7.0); HEMATOCRIT 36.1 % (37.0-47.0); HEMOGLOBIN 12.5 g/dl (12.0-16.0); LYMPHOCYTES # 3.5 10^3/ul (0.8-2.9); LYMPHOCYTES % 23.4 % (15.0-51.0); MEAN CORPUSCULAR HEMOGLOBIN 34.8 pg (29.0-33.0); MEAN CORPUSCULAR HGB CONC 34.6 g/dl (32.0-37.0); MEAN CORPUSCULAR VOLUME 100.6 fl (82.0-101.0); MEAN PLATELET VOLUME 9.8 fl (7.4-10.4); MONOCYTE # 0.9 10^3/ul (0.3-0.9); MONOCYTES % 5.8 % (0.0-11.0); NEUTROPHIL # 10.4 10^3/ul (1.6-7.5); NEUTROPHILS % 69.1 % (39.0-77.0); PLATELET COUNT 292 10^3/UL (140-415); RED BLOOD COUNT 3.59 10^6/ul (4.20-5.40); RED CELL DISTRIBUTION WIDTH 13.2 % (11.5-14.5); WHITE BLOOD COUNT 15.1 10^3/ul (4.8-10.8)
[2017-03-29] MEDS ORDERED: LOSA50TA2 PO (15:41)
[2017-03-29] MEDS ORDERED: OXYC-203 PO (15:44)
[2017-03-29] MEDS ORDERED: TRAM-40 PO (15:44)
[2017-03-29] MEDS ORDERED: CHLO25TA13 PO (15:48)
[2017-03-29] MEDS ORDERED: PHEN37.53 PO (15:49)
[2017-03-29] MEDS ORDERED: CLON1TAB3 PO (15:51)
[2017-03-29 15:59] LABS: INR 0.94; PROTIME 12.6 Sec (12.2-14.2)
[2017-03-29 16:00] LABS: PARTIAL THROMBOPLASTIN TIME 29.7 Sec (25.0-35.0)
[2017-03-29 16:03] LABS: ALANINE AMINOTRANSFERASE 51 IU/L (13-69); ALBUMIN 4.8 g/dl (3.3-4.9); ALBUMIN/GLOBULIN RATIO 1.45; ALKALINE PHOSPHATASE 86 IU/L (42-121); ANION GAP 19 (8-16); ASPARTATE AMINO TRANSFERASE 85 IU/L (15-46); BILIRUBIN,INDIRECT 0.1 mg/dl (0-1.1); BILIRUBIN,TOTAL 0.1 mg/dl (0.2-1.3); BLOOD UREA NITROGEN 25 mg/dl (7-20); CALCIUM 10.9 mg/dl (8.4-10.2); CARBON DIOXIDE 32 mmol/L (21-31); CHLORIDE 87 mmol/L (97-110); CREATININE 2.65 mg/dl (0.44-1.00); GLUCOSE 82 mg/dl (70-220); POTASSIUM 3.9 mmol/L (3.5-5.1); SODIUM 134 mmol/L (135-144); TOTAL PROTEIN 8.1 g/dl (6.1-8.1)
[2017-03-29] MEDS ORDERED: IOHEXOL 300MG/ML 150 ML BTL ONE (16:17)
[2017-03-29] MEDS ORDERED: SOD CHLORIDE 0.9% 100 ML ONE (16:17)
[2017-03-29] MEDS ORDERED: NALOXONE (0.4 MG/ML) INJ IV ONE (16:30)
[2017-03-29 16:39] LABS: TROPONIN-I < 0.012 ng/ml (0.00-0.12)
--- NOTE | 2017-03-29 17:20 | RADRPT ---
PROCEDURE: CT Abdomen and Pelvis with contrast. CLINICAL INDICATION: Abdominal pain. TECHNIQUE: CT scan of the abdomen and pelvis with contrast was performed. The patient was scanned following the uncomplicated intravenous administration of 100 cc of Isovue 300. Coronal and sagitta l reformatted images were obtained from the axial source images. Images were reviewed on a high-reso [employer] PACS workstation. Total exam CTDIvol is 12.64 MGy. DLP is 729.32 mGy-cm. COMPARISON: Abdomen pelvis CT 10/10/2016 FINDINGS: CT abdomen: The visualized lung bases demonstrate bibasilar atelectasis without pleural effusion, pneumothorax o r consolidation. The liver is normal in size and attenuation. There is no focal hepatic lesion. The gallbladder and bile ducts are normal. The spleen is normal in size. There is no focal splenic lesion. Both adrenals are normal with no enlargement or mass. The pancreas is unremarkable with no mass or evidence of pancreatitis. Both kidneys demonstrate normal contrast enhancement. There is no renal mass or hydronephrosis. T here is no renal calculus or ureteral calculus. The abdominal aorta is not dilated. There is no retroperitoneal lymphadenopathy or mass. Diverticulosis of the sigmoid and descending colon without evidence of acute diverticulitis. There is no free fluid or free gas. CT pelvis: There is a cystic lesion in the left adnexal region adjacent to the uterus which measures approximat rosa elena 3.3 cm which was not seen on prior abdomen pelvis CT. There is no pelvic lymphadenopathy or mass. The bladder and distal ureters are normal. The periappendiceal region is unremarkable with no evidence of appendicitis. There is no free fluid or free gas. There are multilevel mild degenerative changes of visualized thoracolumbar spine with decreased disk spaces and osteophytosis most pronounced at T11-T12. No acute fracture or dislocation is noted. IMPRESSION: 1. Suspect left adnexal cystic lesion versus uterus fibroid which measures approximately 3.3 cm. Co nsider pelvic ultrasound for further evaluation. 2. Diverticulosis of the sigmoid and descending colon without evidence of acute diverticulitis. 3. Otherwise no lymphadenopathy or inflammatory changes. RPTAT: HH .Sagrario Angulo MD, Date Time Electronically viewed and signed by .Sagrario Angulo MD, MD on 03/29/2017 17:19 .N/
[2017-03-29] MEDS ORDERED: SOD CHLORIDE 0.9% 1,000 ML IV STA ×2 (17:48→19:19)
--- NOTE | 2017-03-29 18:38 | ERA ---
ER Documentation Chief Complaint Date/Time DATE: 03/29/17 TIME: 18:32 Chief Complaint confusion,dizziness,low bp was discharged here last wed for encephalopathy HPI This is a 56-year-old female who is here because she feels dizzy and is having some abdominal pain. The patient says that she is was admitted to the hospital here and discharged last Wednesday for hepatic encephalopathy. Patient has no fever no diarrhea vomiting. She has pain located in the left abdomen described as crampy without radiation. She says she feels dizzy when she stands up has not had any syncope chest pain palpitations. ROS All systems reviewed and are negative except as per history of present illness. Medications Home Meds Active Scripts Naproxen* (Naprosyn*) 500 Mg Tablet, 250 MG PO BID Y for PAIN AND/OR INFLAMMATION for 10 Days, #30 TAB Take with plenty of fluids to avoid NSAID/dehydration ROWAN. Prov:ANALY CAVAZOS 03/21/17 Reported Medications Clonazepam* (Clonazepam*) 1 Mg Tablet, 1 MG PO BID Y for ANXIETY, TAB 03/29/17 Phentermine Hcl (Phentermine Hcl) 37.5 Mg Tablet, 37.5 MG PO BID, TAB 03/29/17 Chlorthalidone* (Chlorthalidone*) 25 Mg Tablet, 25 MG PO DAILY, TAB 03/29/17 Oxycodone HCl/Acetaminophen (Percocet 7.5-325 mg Tablet) 1 Each Tablet, 1 EACH PO TID, TAB 03/29/17 Tramadol Hcl* (Ultram*) 50 Mg Tablet, 150 MG PO Q12H Y for PAIN, TAB 03/29/17 Losartan Potassium* (Cozaar*) 50 Mg Tablet, 50 MG PO DAILY, #30 TAB 03/29/17 Biotin (Biotin) 1,000 Mcg Tab.chew, 1000 MCG PO DAILY, TAB.CHEW 03/29/17 Venlafaxine Hcl* (Effexor XR*) 150 Mg Cap.sr.24h, 150 MG PO QAM, CAP 03/29/17 Venlafaxine Hcl* (Effexor XR*) 75 Mg Tab.er.24, 75 MG PO QAM, TAB.SA 03/29/17 Zolpidem Tartrate* (Ambien*) 10 Mg Tablet, 10 MG PO QHS Y for INSOMNIA, TAB 10/09/16 Gabapentin* (Gabapentin*) 600 Mg Tablet, 1200 MG PO TID, #180 TAB 10/09/16 Dicyclomine Hcl* (Bentyl*) 10 Mg Capsule, 10 MG PO TID Y for PRN, CAP 10/09/16 Discontinued Reported Medications Estrogens Conjugated* (Premarin* Vaginal Cream) 1 Applic Cr, 1 APPLIC VAG TWO TIMES A WEEK, TUB 10/09/16 Venlafaxine Hcl* (Venlafaxine Hcl*) 100 Mg Tablet, 225 MG PO QAM, TAB 10/09/16 Nicotine* (Nicotine* Patch) 21 mg/day Patch, 1 EACH TD DAILY, PATCH 10/09/16 Lidocaine (Lidocaine) 5 Gm Cream..g., 5 GM TP QID 10/09/16 Diphenoxylate Hcl-Atropine* (Lomotil*) 5 Ml Soln, 5 ML PO Q6H Y for DIARRHEA, ML 10/09/16 Clonazepam* (Clonazepam*) 2 Mg Tablet, 2 MG PO BID, TAB 10/09/16 Cetirizine Hcl* (Cetirizine Hcl*) 10 Mg Tab.chew, 10 MG PO DAILY, #30 TAB 10/09/16 Thiamine* (Vitamin B-1*) 50 Mg Tablet, 50 MG PO DAILY, TAB 10/09/16 Albuterol Sulfate* (Ventolin HFA*) 18 Gm Hfa.aer.ad, 2 PUFF INHALATION Q4H Y for WHEEZING AND SOB, #1 INHALER 10/09/16 Discontinued Scripts Cephalexin* (Keflex*) 500 Mg Capsule, 500 MG PO TID for 3 Days, #9 CAP Prov:ANALY CAVAZOS 03/21/17 Allergies Allergies: Coded Allergies: bupropion (Verified Allergy, Unknown, SEIZURE, 03/29/17) PMhx/Soc History of Surgery: Yes () Anesthesia Reaction: No Hx Neurological Disorder: No Hx Respiratory Disorders: No Hx Cardiac Disorders: Yes (HTN) Hx Psychiatric Problems: No Hx Miscellaneous Medical Probl: Yes (encephalopathy) Hx Alcohol Use: Yes (OCCASIONAL ) Hx Substance Use: No Hx Tobacco Use: Yes Smoking Status: Current every day smoker FmHx Family History: No coronary disease Physical Exam Vitals Vital Signs Date Time Temp Pulse Resp B/P Pulse Ox O2 Delivery O2 Flow Rate FiO2 03/29/17 19:14 66 22 91/66 100 Room Air 03/29/17 16:57 98.0 68 18 80/66 100 Nasal Cannula 2.0 03/29/17 15:49 Nasal Cannula 2 03/29/17 14:49 98.0 81 20 74/55 99 Nasal Cannula 2.0 03/29/17 13:47 98.2 98 25 71/44 99 Physical Exam Const: Well-developed, well-nourished Head: Atraumatic, normocephalic Eyes: Normal Conjunctiva, PERRLA, EOMI, normal sclera, no nystagmus ENT: Normal External Ears, Nose and Mouth, moist mucus membranes. Neck: Full range of motion. No meningismus, no lymphadenopathy. Resp: Clear to auscultation bilaterally, no wheezing, rhonchi, rales Cardio: Regular rate and rhythm, no murmurs, S1 S2 present Abd: Soft, tenderness to the left upper and lower quadrants mild to moderate, non distended. Normal bowel sounds, no guarding or rebound, no pulsitile abdominal masses or bruits Skin: No petechiae or rashes, no ecchymosis , no maculopapular rash Back: No midline or flank tenderness Ext: No cyanosis, or edema, FROM x 4, normal inspection, neurovascularly intact x 4 Neur: Awake and alert, she seems somewhat drowsy as if someone was on pain medication. STR 5/5 x 4, sensation intact x 4, no focal findings, cerebellum intact Psych: Normal Mood and Affect Result Diagram: 03/29/17 1520 03/29/17 1520 Results 24 hrs Laboratory Tests Test 03/29/17 15:20 03/29/17 15:34 White Blood Count 15.110^3/ul Red Blood Count 3.5910^6/ul Hemoglobin 12.5g/dl Hematocrit 36.1% Mean Corpuscular Volume 100.6fl Mean Corpuscular Hemoglobin 34.8pg Mean Corpuscular Hemoglobin Concent 34.6g/dl Red Cell Distribution Width 13.2% Platelet Count 68395^3/UL Mean Platelet Volume 9.8fl Neutrophils % 69.1% Lymphocytes % 23.4% Monocytes % 5.8% Eosinophils % 0.6% Basophils % 0.6% Nucleated Red Blood Cells % 0.0/100WBC Neutrophils # 10.410^3/ul Lymphocytes # 3.510^3/ul Monocytes # 0.910^3/ul Eosinophils # 0.110^3/ul Basophils # 0.110^3/ul Nucleated Red Blood Cells # 0.010^3/ul Prothrombin Time 12.6Sec Prothrombin Time Ratio 1.0 INR International Normalized Ratio 0.94 Activated Partial Thromboplast Time 29.7Sec Sodium Level 134mmol/L Potassium Level 3.9mmol/L Chloride Level 87mmol/L Carbon Dioxide Level 32mmol/L Anion Gap 19 Blood Urea Nitrogen 25mg/dl Creatinine 2.65mg/dl Glucose Level 82mg/dl Calcium Level 10.9mg/dl Total Bilirubin 0.1mg/dl Direct Bilirubin 0.00mg/dl Indirect Bilirubin 0.1mg/dl Aspartate Amino Transf (AST/SGOT) 85IU/L Alanine Aminotransferase (ALT/SGPT) 51IU/L Alkaline Phosphatase 86IU/L Ammonia < 9umol/l Troponin I < 0.012ng/ml Total Protein 8.1g/dl Albumin 4.8g/dl Globulin 3.30g/dl Albumin/Globulin Ratio 1.45 Bedside Glucose 92mg/dL Current Medications Medications (Trade) Dose Ordered Sig/Mayo Route PRN Reason Start Time Stop Time Status Last Admin Dose Admin Sodium Chloride (NS) 2,510 ml BOLUS OVER 2 HOURS STAT IV* 03/29/17 14:47 03/29/17 14:48 DC 03/29/17 15:52 Naloxone HCl (Narcan) 0.2 mg ONCE ONCE IV 03/29/17 16:30 03/29/17 16:31 DC 03/29/17 16:12 IV Flush 10 ml 10 ml STK-MED ONCE .ROUTE 03/29/17 16:17 03/29/17 16:18 DC 03/29/17 17:06 Sodium Chloride (NS) 100 ml @ ud STK-MED ONCE .ROUTE 03/29/17 16:17 03/29/17 16:18 DC 03/29/17 17:06 Iohexol 150 ml 150 ml STK-MED ONCE .ROUTE 03/29/17 16:17 03/29/17 16:18 DC 03/29/17 17:06 Sodium Chloride 1,000 ml @ 1,000 mls/hr Q1H STAT IV 03/29/17 17:48 03/29/17 18:47 DC 03/29/17 18:14 Sodium Chloride (NS) 1,000 ml @ 1,000 mls/hr Q1H STAT IV 03/29/17 19:19 03/29/17 20:18 Flumazenil (Romazicon) 0.2 mg ONCE ONCE IV 03/29/17 19:30 03/29/17 19:31 DC Procedures/MDM PROCEDURE: Chest Radiograph. CLINICAL INDICATION: sepsis TECHNIQUE: Single frontal chest radiograph. COMPARISON: Chest radiograph 07/27/2000 a FINDINGS: The cardiomediastinal silhouette is within normal limits. No infiltrate or effusion is seen. The bones are intact. IMPRESSION: 1. Unremarkable chest radiograph. RPTAT: AA .Rip Plascencia MD, Date Time Electronically viewed and signed by .Rip Plascencia MD, MD on 2016 15:22 .B/ CC: TANK MACDONALD DO PROCEDURE: CT Abdomen and Pelvis with contrast. CLINICAL INDICATION: Abdominal pain. TECHNIQUE: CT scan of the abdomen and pelvis with contrast was performed. The patient was scanned following the uncomplicated intravenous administration of 100 cc of Isovue 300. Coronal and sagittal reformatted images were obtained from the axial source images. Images were reviewed on a high-resolution PACS workstation. Total exam CTDIvol is 12.64 MGy. DLP is 729.32 mGy-cm. COMPARISON: Abdomen pelvis CT 10/10/2016 FINDINGS: CT abdomen: The visualized lung bases demonstrate bibasilar atelectasis without pleural effusion, pneumothorax or consolidation. The liver is normal in size and attenuation. There is no focal hepatic lesion. The gallbladder and bile ducts are normal. The spleen is normal in size. There is no focal splenic lesion. Both adrenals are normal with no enlargement or mass. The pancreas is unremarkable with no mass or evidence of pancreatitis. Both kidneys demonstrate normal contrast enhancement. There is no renal mass or hydronephrosis. There is no renal calculus or ureteral calculus. The abdominal aorta is not dilated. There is no retroperitoneal lymphadenopathy or mass. Diverticulosis of the sigmoid and descending colon without evidence of acute diverticulitis. There is no free fluid or free gas. CT pelvis: There is a cystic lesion in the left adnexal region adjacent to the uterus which measures approximately 3.3 cm which was not seen on prior abdomen pelvis CT. There is no pelvic lymphadenopathy or mass. The bladder and distal ureters are normal. The periappendiceal region is unremarkable with no evidence of appendicitis. There is no free fluid or free gas. There are multilevel mild degenerative changes of visualized thoracolumbar spine with decreased disk spaces and osteophytosis most pronounced at T11-T12. No acute fracture or dislocation is noted. IMPRESSION: 1. Suspect left adnexal cystic lesion versus uterus fibroid which measures approximately 3.3 cm. Consider pelvic ultrasound for further evaluation. 2. Diverticulosis of the sigmoid and descending colon without evidence of acute diverticulitis. 3. Otherwise no lymphadenopathy or inflammatory changes. RPTAT: HH .Sagrario Angulo MD, MD Date Time Electronically viewed and signed by .Sagrario Angulo MD, on 03/29/2017 17: 19 .N/ CC: CRISTINA FRIEND DO The CT of the abdomen and pelvis was done with IV contrast. The patient had discharge labs on March 20 with a creatinine of 0.93. And the CT was done based off of this lab result. Today however her creatinine is 2.65. She is given a few liters of normal saline in order to try to flush the kidneys. She will need to be admitted for low blood pressure her blood pressure on my initial exam was 74/56.. She will also need to be monitored for her kidney function. IV contrast at this range can cause an elevation in creatinine but is unlikely to cause any renal failure. Patient has a new elevated creatinine consistent with renal insufficiency. There is prerenal azotemia with contraction alkalosis We will admit for IV fluids and blood pressure monitoring. Blood pressures 80/ 50. Patient is afebrile, is well-appearing, this is not a septic picture. Low blood pressure could be from medications or other etiology Critical Care Time: 32 minutes Treatments/Evaluations: Close monitoring and treatment of unstable vital signs, cardiorespiratory, and neurologic status, while maintaining tight balance of fluid, respiratory, and cardiac interventions. This time includes discussing the case with the patient and the patient's family. This time does not include all procedures stated elsewhere in this record. This time also includes reviewing old records, labs and radiological studies. This time includes examining and re-examining the patient. Additionally, this time also includes arranging care with admitting and consulting physicians. Departure Diagnosis: Primary Impression: Hypotension Qualified Code: I95.9 - Hypotension, unspecified hypotension type Additional Impression: Renal insufficiency Condition: CRISTINA Souza DO Mar 29, 2017 18:38
[2017-03-29] MEDS ORDERED: FLUMAZENIL 0.5 MG INJ IV ONE (19:30)
[2017-03-29] MEDS ORDERED: SOD CHLORIDE 0.9% 1,000 ML IV SCH (19:38)
[2017-03-29 19:45] LABS: ADD UMIC YES; UR ASCORBIC ACID NEGATIVE (NEGATIVE); UR BACTERIA FEW /HPF (NONE SEEN); UR BILIRUBIN (Dip) NEGATIVE (NEGATIVE); UR BLOOD (Dip) 1+ mg/dL (NEGATIVE); UR CLARITY SLIGHTLY CLOUDY (CLEAR); UR COLOR YELLOW (YELLOW); UR GLUCOSE (Dip) NEGATIVE (NEGATIVE); UR KETONES (Dip) NEGATIVE (NEGATIVE); UR LEUKOCYTE ESTERASE (Dip) TRACE Leu/ul (NEGATIVE); UR NITRITE (Dip) NEGATIVE (NEGATIVE); UR RBC 1 /HPF (0-5); UR SPECIFIC GRAVITY (Dip) 1.025 (1.003-1.030); UR SQUAMOUS EPITHELIAL CELL FEW /HPF (FEW); UR TOTAL PROTEIN (Dip) NEGATIVE (NEGATIVE); UR UROBILINOGEN (Dip) NEGATIVE (NEGATIVE)
[2017-03-29] MEDS ORDERED: ACETAMINOPHEN 650MG/20.3ML CUP PO PRN (20:00)
[2017-03-29] MEDS ORDERED: NACL 0.9% 3 ML SYG IV SCH (20:00)
[2017-03-29] MEDS ORDERED: ONDANSETRON 4 MG INJ IV PRN ×2 (20:00)
[2017-03-29] MEDS ORDERED: IPRATROPIUM (NEB) 0.5 MG/2.5 ML AMP NEB PRN (20:00)
[2017-03-29] MEDS ORDERED: ALBUTEROL 0.083% (NEB) 2.5 MG/3 ML AMP NEB PRN (20:00)
[2017-03-29] MEDS ORDERED: ACETAMINOPHEN 325 MG TAB PO PRN (20:00)
[2017-03-29 20:03] LABS: BENZODIAZEPINES Negative (NEGATIVE)
--- NOTE | 2017-03-29 20:03 | HP ---
Date/Time of Note Date/Time of Note DATE: 03/29/17 TIME: 19:38 Assessment/Plan VTE Prophylaxis VTE Prophylaxis Intervention: SCD's Assessment/Plan Assessment/Plan -Hypotension, continue IV fluids monitor blood pressure -Acute kidney injury, continue IV fluids will obtain urine drug screen -Dehydration -Possible sepsis with urinary tract infection, will obtain lactic acid, UA and urine and blood cultures. Further recommendations based on clinical course. Plan of care discussed with Dr. Pineda. HPI/ROS Admit Date/Time Admit Date/Time Hx of Present Illness The patient is a 56-year-old female known to me from previous admission. Patient presented to the emergency room with complaints of feeling dizzy and abdominal pain. Patient also stated that she had dark urine. Patient denies any fever denies any vomiting although she states she feels little nauseous. Patient was noted to have hypotensive in the emergency room systolic blood pressure in 70s. She was given IV fluids with slight improvement in blood pressure. Patient was also given Romazicon since patient is on Klonopin at home for as needed for anxiety. Patient underwent CT of the abdomen and pelvis which revealed left adnexal cystic lesion versus uterus fibroids, diverticulosis without diverticulitis, no lymphadenopathy inflammatory changes. Chest x-rays are not remarkable. Patient also noted to have leukocytosis and elevated BUN creatinine. Patient will be continued on IV fluids and admitted for further evaluation and management to intensive care unit. ROS 12 point review of system is negative unless for mentioned in HPI PMH/Family/Social Past Medical History hypertension history of PE seizure, gastritis, moderate sigmoid diverticulosis, chronic pain syndrome, panic disorder, anxiety and depression. Past Surgical History Status post myomectomy, status post colonoscopy with polypectomy. Past Surgical Hx: other Family History Significant Family History: no pertinent family hx Social History Alcohol Use: none Smoking Status: Current every day smoker Drug Use: none Exam/Review of Systems Vital Signs Vitals Vital Signs Date Time Temp Pulse Resp B/P Pulse Ox O2 Delivery O2 Flow Rate FiO2 03/29/17 19:14 66 22 91/66 100 Room Air 03/29/17 16:57 98.0 2.0 Exam Constitutional: alert Psych: no complaints Head: normocephalic Eyes: nl conjunctiva Respiratory: normal air movement Cardiovascular: nl pulses, regular rate and rhythm Gastrointestinal: non-tender, other (Lower abdominal tenderness), soft Musculoskeletal: nl extremities to inspection Extremities: normal pulses Neurological: lethargic Skin: nl turgor Labs Result Diagram: 03/29/17 1520 03/29/17 1520 DENNIS JUAN Mar 29, 2017 20:02
[2017-03-29 20:04] LABS: BARBITURATES Negative (NEGATIVE); CANNABINOIDS Negative (NEGATIVE); COCAINE Negative (NEGATIVE); OPIATES Negative (NEGATIVE)
[2017-03-30] VITALS (13 sets, daily range): BP systolic 97–129; BP diastolic 56–80; PULSE 61–81; RESP 17–20; TEMP 98.1; Ht 172.7 cm; Wt 81.0 kg
[2017-03-30] MEDS: SOD CHLORIDE 0.9% 1,000 ML IV SCH ×3 (03:54→15:16)
[2017-03-30] MEDS: PANTOPRAZOLE 40 MG INJ IV SCH (06:18)
[2017-03-30 07:38] LABS: BASOPHILS % 0.6 % (0.0-2.0); EOSINOPHILS # 0.3 10^3/ul (0.0-0.5); EOSINOPHILS % 3.5 % (0.0-7.0); HEMATOCRIT 32.4 % (37.0-47.0); LYMPHOCYTES # 3.1 10^3/ul (0.8-2.9); LYMPHOCYTES % 42.5 % (15.0-51.0); MEAN CORPUSCULAR HEMOGLOBIN 34.8 pg (29.0-33.0); MEAN CORPUSCULAR VOLUME 102.5 fl (82.0-101.0); MEAN PLATELET VOLUME 9.6 fl (7.4-10.4); MONOCYTE # 0.5 10^3/ul (0.3-0.9); MONOCYTES % 6.2 % (0.0-11.0); NEUTROPHIL # 3.4 10^3/ul (1.6-7.5); NEUTROPHILS % 46.9 % (39.0-77.0); PLATELET COUNT 186 10^3/UL (140-415); RED BLOOD COUNT 3.16 10^6/ul (4.20-5.40); RED CELL DISTRIBUTION WIDTH 12.7 % (11.5-14.5); WHITE BLOOD COUNT 7.2 10^3/ul (4.8-10.8)
[2017-03-30 08:51] LABS: CALCIUM 8.7 mg/dl (8.4-10.2); CREATININE 1.57 mg/dl (0.44-1.00); POTASSIUM 4.2 mmol/L (3.5-5.1)
[2017-03-30] MEDS: ENOXAPARIN 30 MG/0.3 ML SYG SC SCH (09:06)
[2017-03-30] MEDS: traMADol 50 MG TAB PO PRN (13:05)
--- NOTE | 2017-03-30 16:51 | PN ---
Date/Time of Note Date/Time of Note DATE: 03/30/17 TIME: 16:45 Assessment/Plan VTE Prophylaxis VTE Prophylaxis Intervention: SCD's Lines/Catheters IV C[facility]ter Type (from [facility] Peripheral IV Urinary Cath still in place: No Assessment/Plan Chief Complaint/Hosp Course Patient with significant improvement in blood pressure and renal function today , continue IV fluids. Patient's complains of diffuse abdominal and chronic lower back pain, asking for pain medication. Assessment/Plan -Hypotension, continue IV fluids, monitor blood pressure -Acute kidney injury, continue IV fluids, urine drug screen is unremarkable. -Dehydration, resolving. -Possible urinary tract infection, follow-up on cultures. Further recommendations based on clinical course. Plan of care discussed with Dr. Pineda. Problems: Exam/Review of Systems Vital Signs Vitals Vital Signs Date Time Temp Pulse Resp B/P Pulse Ox O2 Delivery O2 Flow Rate FiO2 03/30/17 16:28 81 03/30/17 16:18 99.0 20 120/77 100 03/30/17 12:00 Room Air 03/29/17 16:57 2.0 Intake and Output 03/29/17 03/29/17 03/30/17 15:00 23:00 07:00 Intake Total 4500 ml 0 ml Balance 4500 ml 0 ml Exam Constitutional: alert, oriented Head: atraumatic, normocephalic Neck: supple Respiratory: normal air movement Cardiovascular: nl pulses Gastrointestinal: non-tender, soft Musculoskeletal: nl extremities to inspection Extremities: normal pulses Neurological: nl mental status Results Result Diagram: 03/30/17 0712 03/30/17 0712 Results 24 hrs Laboratory Tests Test 03/29/17 19:30 03/30/17 07:12 Urine Color YELLOW Urine Clarity SLIGHTLY CLOUDY A Urine pH 6.0 Urine Specific [place] 1.025 Urine Ketones NEGATIVE Urine Nitrite NEGATIVE Urine Bilirubin NEGATIVE Urine Urobilinogen NEGATIVE Urine Leukocyte Esterase TRACE A Urine Microscopic RBC 1 Urine Microscopic WBC 8 H Urine Squamous Epithelial Cells FEW Urine Bacteria FEW A Urine Hemoglobin 1+ H Urine Glucose NEGATIVE Urine Total Protein NEGATIVE Urine Opiates Screen Negative Urine Barbiturates Negative Urine Amphetamines Screen Negative Urine Benzodiazepines Screen Negative Urine Cocaine Screen Negative Urine Cannabinoids Negative White Blood Count 7.2 # Red Blood Count 3.16 L Hemoglobin 11.0 L Hematocrit 32.4 L Mean Corpuscular Volume 102.5 H Mean Corpuscular Hemoglobin 34.8 H Mean Corpuscular Hemoglobin Concent 34.0 Red Cell Distribution Width 12.7 Platelet Count 186 # Mean Platelet Volume 9.6 Neutrophils % 46.9 Lymphocytes % 42.5 Monocytes % 6.2 Eosinophils % 3.5 Basophils % 0.6 Nucleated Red Blood Cells % 0.0 Neutrophils # 3.4 Lymphocytes # 3.1 H Monocytes # 0.5 Eosinophils # 0.3 Basophils # 0.0 Nucleated Red Blood Cells # 0.0 Sodium Level 138 Potassium Level 4.2 Chloride Level 102 # Carbon Dioxide Level 24 Anion Gap 16 Blood Urea Nitrogen 21 H Creatinine 1.57 #H Glucose Level 80 Lactic Acid Level 1.1 Calcium Level 8.7 Medications Medications Current Medications Sodium Chloride (NS) 1,000 ml @ 125 mls/hr Q8H IV Last administered on 15:16; Admin Dose 125 MLS/HR; Start 03/29/17 at 19:54 Ondansetron HCl (Zofran Inj) 4 mg Q6H PRN IV NAUSEA AND/OR VOMITING; Start at 20:00 Acetaminophen (Tylenol Liquid) 650 mg Q6H PRN PO PAIN LEVEL 1-3 OR FEVER; Start 03/29/17 at 20:00 Pantoprazole (Protonix Iv) 40 mg DAILY@06 IV Last administered on 03/30/17 06: 18; Admin Dose 40 MG; Start 03/30/17 at 06:00 Enoxaparin Sodium (Lovenox) 30 mg DAILY SC Last administered on 03/30/17 09:06 ; Admin Dose 30 MG; Start 03/30/17 at 09:00 Tramadol HCl (Ultram) 50 mg Q6H PRN PO pain Last administered on 03/30/17 13: 05; Admin Dose 50 MG; Start 03/30/17 at 05:00 DENNIS JUAN Mar 30, 2017 16:51
[2017-03-30] MEDS ORDERED: OXYCODONE/ACETAMINOPHEN (5/325) TAB PO PRN (17:00)
[2017-03-31 07:35] LABS: BASOPHIL # 0.1 10^3/ul (0.0-0.1); EOSINOPHILS # 0.2 10^3/ul (0.0-0.5); EOSINOPHILS % 4.4 % (0.0-7.0); HEMATOCRIT 33.1 % (37.0-47.0); HEMOGLOBIN 11.3 g/dl (12.0-16.0); LYMPHOCYTES # 2.2 10^3/ul (0.8-2.9); LYMPHOCYTES % 44.2 % (15.0-51.0); MEAN CORPUSCULAR HEMOGLOBIN 33.8 pg (29.0-33.0); MEAN CORPUSCULAR HGB CONC 34.1 g/dl (32.0-37.0); MEAN CORPUSCULAR VOLUME 99.1 fl (82.0-101.0); MEAN PLATELET VOLUME 9.7 fl (7.4-10.4); MONOCYTE # 0.4 10^3/ul (0.3-0.9); MONOCYTES % 7.4 % (0.0-11.0); NEUTROPHIL # 2.2 10^3/ul (1.6-7.5); NEUTROPHILS % 42.8 % (39.0-77.0); PLATELET COUNT 210 10^3/UL (140-415); RED BLOOD COUNT 3.34 10^6/ul (4.20-5.40); RED CELL DISTRIBUTION WIDTH 12.8 % (11.5-14.5)
[2017-03-31 07:51] VITALS: BP 122/72; RESP 19
[2017-03-31 08:00] LABS: ALBUMIN 3.4 g/dl (3.3-4.9); ALBUMIN/GLOBULIN RATIO 1.41; CALCIUM 9.2 mg/dl (8.4-10.2); POTASSIUM 4.6 mmol/L (3.5-5.1); TOTAL PROTEIN 5.8 g/dl (6.1-8.1)
[2017-03-31] MEDS: PANTOPRAZOLE 40 MG INJ IV SCH (08:37)
[2017-03-31] MEDS: ENOXAPARIN 30 MG/0.3 ML SYG SC SCH (08:38)
[2017-03-31 11:49] VITALS: BP 121/84; RESP 19
[2017-03-31] MEDS ORDERED: VENLAFAXINE (XR) 75 MG CAP PO SCH (12:00)
[2017-03-31] MEDS ORDERED: ZOLPIDEM 5 MG TAB PO PRN (12:00)
[2017-03-31] MEDS ORDERED: traMADol 50 MG TAB PO PRN (12:00)
[2017-03-31] MEDS ORDERED: DICYCLOMINE 10 MG CAP PO PRN (12:00)
--- NOTE | 2017-03-31 12:38 | PN ---
Date/Time of Note Date/Time of Note DATE: 03/31/17 TIME: 12:37 Assessment/Plan VTE Prophylaxis VTE Prophylaxis Intervention: SCD's Lines/Catheters IV Catheter Type (from Nrsg): Saline Lock Urinary Cath still in place: No Assessment/Plan Assessment/Plan 56 yo F with pmhx HTN, depression/PTSD, chronic pain admitted for hypotension and ROWAN, both of which resolved with cessation of pt's home BP meds. Suspect dehydration (possibly iatrogenic from BP meds) as origin #ROWAN/hypotension: resolved. suspect pre renal as improved with IV-->PO fluids #Chronic pain, depression: CUR[facility] database reviewed. Pt's controlled rx's are for tramadol 50 mg 2-4x/day, Klonopin 1mg BID, Phetermine 37.5 mg daily, cont home meds #h/o hypertension: BP meds on hold. If BP consistently >150/90 would start norvasc as less likely to cause ROWAN/dehydration #FEN: general diet anticipate discharge home in AM Subjective 24 Hr Interval Summary Free Text/Dictation Pt states she's been on her BP regimen for the past 2 years, states she was eating and drinking normally prior to discharge. Denies any change in PO intake recently Exam/Review of Systems Vital Signs Vitals Vital Signs Date Time Temp Pulse Resp B/P Pulse Ox O2 Delivery O2 Flow Rate FiO2 03/31/17 11:49 98.6 79 19 121/84 96 03/30/17 12:00 Room Air 03/29/17 16:57 2.0 Intake and Output 03/30/17 03/30/17 03/31/17 15:00 23:00 07:00 Intake Total 1875 ml 400 ml Balance 1875 ml 400 ml Exam nad, sitting up in chair no mrg lungs clear abd soft no rashes Cr 1.0 WBCs nl Results Result Diagram: 03/31/17 0644 03/31/17 0644 Results 24 hrs Laboratory Tests Test 03/31/17 06:44 White Blood Count 5.0 # Red Blood Count 3.34 L Hemoglobin 11.3 L Hematocrit 33.1 L Mean Corpuscular Volume 99.1 Mean Corpuscular Hemoglobin 33.8 H Mean Corpuscular Hemoglobin Concent 34.1 Red Cell Distribution Width 12.8 Platelet Count 210 Mean Platelet Volume 9.7 Neutrophils % 42.8 Lymphocytes % 44.2 Monocytes % 7.4 Eosinophils % 4.4 Basophils % 1.0 Nucleated Red Blood Cells % 0.0 Neutrophils # 2.2 Lymphocytes # 2.2 Monocytes # 0.4 Eosinophils # 0.2 Basophils # 0.1 Nucleated Red Blood Cells # 0.0 Sodium Level 141 Potassium Level 4.6 Chloride Level 104 Carbon Dioxide Level 26 Anion Gap 16 Blood Urea Nitrogen 19 Creatinine 1.00 Glucose Level 82 Lactic Acid Level 1.1 Calcium Level 9.2 Total Bilirubin 0.0 L Direct Bilirubin 0.00 Indirect Bilirubin 0.0 Aspartate Amino Transf (AST/SGOT) 42 Alanine Aminotransferase (ALT/SGPT) 38 Alkaline Phosphatase 70 Total Protein 5.8 #L Albumin 3.4 # Globulin 2.40 Albumin/Globulin Ratio 1.41 Medications Medications Current Medications Ondansetron HCl (Zofran Inj) 4 mg Q6H PRN IV NAUSEA AND/OR VOMITING; Start at 20:00 Acetaminophen (Tylenol Liquid) 650 mg Q6H PRN PO PAIN LEVEL 1-3 OR FEVER; Start 03/29/17 at 20:00 Enoxaparin Sodium (Lovenox) 30 mg DAILY SC Last administered on 03/30/17 09:06 ; Admin Dose 30 MG; Start 03/30/17 at 09:00 Tramadol HCl (Ultram) 50 mg Q6H PRN PO pain Last administered on 03/30/17 13: 05; Admin Dose 50 MG; Start 03/30/17 at 05:00 Clonazepam (Klonopin) 1 mg BID PRN PO ANXIETY; Start 03/31/17 at 12:00 Gabapentin (Neurontin) 1,200 mg TID PO ; Start 03/31/17 at 13:00 Venlafaxine HCl (Effexor Xr) 225 mg QAM PO ; Start 03/31/17 at 12:00 Dicyclomine HCl (Bentyl) 10 mg TID PRN PO PRN; Start 03/31/17 at 12:00 Miscellaneous Information 1,000 mcg DAILY PO ; Start 04/01/17 at 09:00; Status UNV Miscellaneous Information 37.5 mg BID PO ; Start 03/31/17 at 21:00; Status UNV VINNIE CAMPA MD Mar 31, 2017 12:38
[2017-03-31] MEDS: GABAPENTIN 300 MG CAP PO SCH ×2 (12:44→20:59)
[2017-03-31] MEDS: VENLAFAXINE (XR) 75 MG CAP PO SCH (12:44)
[2017-03-31 15:45] LABS: THYROID STIMULATING HORMONE 2.34 MIU/L (0.465-4.680)
[2017-03-31 15:56] VITALS: BP 128/80; RESP 19
[2017-03-31 17:15] VITALS: BP 173/95; PULSE 79; RESP 18
[2017-03-31] MEDS: clonAZEPAM 0.5 MG TAB PO PRN (17:28)
[2017-03-31] MEDS: traMADol 50 MG TAB PO PRN ×2 (17:30→23:41)
[2017-03-31 18:45] VITALS: BP 139/87; PULSE 72; RESP 18
[2017-03-31 20:00] VITALS: BP 150/78; RESP 19
[2017-03-31] MEDS ORDERED: AMLODIPINE 5 MG TAB PO ONE (20:30)
[2017-03-31] MEDS ORDERED: PHENTERMINE HCL 37.5 MG PO SCH (21:00)
[2017-03-31] MEDS: OXYCODONE/ACETAMINOPHEN (5/325) TAB PO PRN (21:01)
[2017-03-31] MEDS: ZOLPIDEM 5 MG TAB PO PRN (23:41)
[2017-04-01] MEDS: OXYCODONE/ACETAMINOPHEN (5/325) TAB PO PRN ×5 (01:22→21:28)
[2017-04-01 06:17] LABS: CALCIUM 9.3 mg/dl (8.4-10.2); CREATININE 1.04 mg/dl (0.44-1.00); POTASSIUM 4.1 mmol/L (3.5-5.1)
[2017-04-01] MEDS: clonAZEPAM 0.5 MG TAB PO PRN ×2 (07:53→13:33)
[2017-04-01 08:22] VITALS: BP 143/87; RESP 18
[2017-04-01] MEDS: GABAPENTIN 300 MG CAP PO SCH ×3 (08:36→21:28)
[2017-04-01] MEDS: VENLAFAXINE (XR) 75 MG CAP PO SCH (08:36)
[2017-04-01] MEDS: AMLODIPINE 5 MG TAB PO SCH (08:37)
[2017-04-01] MEDS ORDERED: AMLO-145 PO (08:42)
--- NOTE | 2017-04-01 08:44 | PDOCDIS ---
Discharge Instructions CONDITION Patient Condition: Stable HOME CARE INSTRUCTIONS: Special Diet: Regular Diet FOLLOW UP/APPOINTMENTS Follow-up Plan Your chlorthalidone and Cozaar/Losartan have been stopped. You have instead been started on Norvasc/amlodipine. Please follow up with your regular physician within 7 days for a blood pressure check and a chemistry profile. Please also refrain from taking any NSAIDs/anti inflammatories (ie naproxen) until you are seen by your regular doctor as these can be hard on the kidneys VINNIE CAMPA MD Apr 01, 2017 08:44
--- NOTE | 2017-04-01 08:46 | DS ---
Date/Time of Note Date/Time of Note DATE: 04/01/17 TIME: 08:44 Discharge Summary Admission/Discharge Info Admit Date/Time Mar 29, 2017 at 19:38 Discharge Date/Time Discharge Diagnosis acute kidney injury-->likely prerenal in origin, hypotension Patient Condition: Stable Consults Procedures CT A/P IMPRESSION: 1. Suspect left adnexal cystic lesion versus uterus fibroid which measures approximately 3.3 cm. Consider pelvic ultrasound for further evaluation. 2. Diverticulosis of the sigmoid and descending colon without evidence of acute diverticulitis. 3. Otherwise no lymphadenopathy or inflammatory changes. Cr on admission: 2.0. Cr at discharge 1.04 Hx of Present Illness The patient is a 56-year-old female known to me from previous admission. Patient presented to the emergency room with complaints of feeling dizzy and abdominal pain. Patient also stated that she had dark urine. Patient denies any fever denies any vomiting although she states she feels little nauseous. Patient was noted to have hypotensive in the emergency room systolic blood pressure in 70s. She was given IV fluids with slight improvement in blood pressure. Patient was also given Romazicon since patient is on Klonopin at home for as needed for anxiety. Patient underwent CT of the abdomen and pelvis which revealed left adnexal cystic lesion versus uterus fibroids, diverticulosis without diverticulitis, no lymphadenopathy inflammatory changes. Chest x-rays are not remarkable. Patient also noted to have leukocytosis and elevated BUN creatinine. Patient will be continued on IV fluids and admitted for further evaluation and management to intensive care unit. Hospital Course Pt started on IVFs, BP meds held and BP and Cr returned to nl. IVFs stopped and BP noted to be above goal thus pt started on norvasc. As pt denied dysuria prior to admission, no compelling evidence of cystitis. Pt discharged on norvasc, advised to stop taking ARB/dieretic/NSAID and f/u with PCP within 7 days for BP check. Also CT AP with incidental finding of adnexal fibroid v cyst; pt advised to ask PCP for referral for formal US Home Meds Active Scripts Amlodipine Besylate* (Amlodipine Besylate*) 5 Mg Tablet, 10 MG PO DAILY for 14 Days, #14 TAB Prov:VINNIE CAMAP MD 04/01/17 Naproxen* (Naprosyn*) 500 Mg Tablet, 250 MG PO BID Y for PAIN AND/OR INFLAMMATION for 10 Days, #30 TAB Take with plenty of fluids to avoid NSAID/dehydration ROWAN. Prov:PAOLA CAVAZOSBIR 03/21/17 Reported Medications Clonazepam* (Clonazepam*) 1 Mg Tablet, 1 MG PO BID Y for ANXIETY, TAB 03/29/17 Phentermine Hcl (Phentermine Hcl) 37.5 Mg Tablet, 37.5 MG PO BID, TAB 03/29/17 Chlorthalidone* (Chlorthalidone*) 25 Mg Tablet, 25 MG PO DAILY, TAB 03/29/17 Tramadol Hcl* (Ultram*) 50 Mg Tablet, 150 MG PO Q12H Y for PAIN, TAB 03/29/17 Losartan Potassium* (Cozaar*) 50 Mg Tablet, 50 MG PO DAILY, #30 TAB 03/29/17 Biotin (Biotin) 1,000 Mcg Tab.chew, 1000 MCG PO DAILY, TAB.CHEW 03/29/17 Venlafaxine Hcl* (Effexor XR*) 150 Mg Cap.sr.24h, 150 MG PO QAM, CAP 03/29/17 Venlafaxine Hcl* (Effexor XR*) 75 Mg Tab.er.24, 75 MG PO QAM, TAB.SA 03/29/17 Gabapentin* (Gabapentin*) 600 Mg Tablet, 1200 MG PO TID, #180 TAB 10/09/16 Dicyclomine Hcl* (Bentyl*) 10 Mg Capsule, 10 MG PO TID Y for PRN, CAP 10/09/16 Discontinued Reported Medications Estrogens Conjugated* (Premarin* Vaginal Cream) 1 Applic Cr, 1 APPLIC VAG TWO TIMES A WEEK, TUB 10/09/16 Venlafaxine Hcl* (Venlafaxine Hcl*) 100 Mg Tablet, 225 MG PO QAM, TAB 10/09/16 Nicotine* (Nicotine* Patch) 21 mg/day Patch, 1 EACH TD DAILY, PATCH 10/09/16 Lidocaine (Lidocaine) 5 Gm Cream..g., 5 GM TP QID 10/09/16 Diphenoxylate Hcl-Atropine* (Lomotil*) 5 Ml Soln, 5 ML PO Q6H Y for DIARRHEA, ML 10/09/16 Clonazepam* (Clonazepam*) 2 Mg Tablet, 2 MG PO BID, TAB 10/09/16 Cetirizine Hcl* (Cetirizine Hcl*) 10 Mg Tab.chew, 10 MG PO DAILY, #30 TAB 10/09/16 Thiamine* (Vitamin B-1*) 50 Mg Tablet, 50 MG PO DAILY, TAB 10/09/16 Albuterol Sulfate* (Ventolin HFA*) 18 Gm Hfa.aer.ad, 2 PUFF INHALATION Q4H Y for WHEEZING AND SOB, #1 INHALER 10/09/16 Discontinued Scripts Cephalexin* (Keflex*) 500 Mg Capsule, 500 MG PO TID for 3 Days, #9 CAP Prov:PAOLA CAVAZOSBIR 03/21/17 Primary Care Provider [facility] Pending Labs Laboratory Tests Test 04/01/17 04:35 Sodium Level 141mmol/L (135-144) Potassium Level 4.1mmol/L (3.5-5.1) Chloride Level 98mmol/L (97-110) Carbon Dioxide Level 29mmol/L (21-31) Anion Gap 18 (8-16) Blood Urea Nitrogen 17mg/dl (7-20) Creatinine 1.04mg/dl (0.44-1.00) Glucose Level 84mg/dl (70-220) Calcium Level 9.3mg/dl (8.4-10.2) VINNIE CAMPA MD Apr 01, 2017 08:46 VINNIE CAMPA MD Apr 01, 2017 08:46
[2017-04-01] MEDS: ENOXAPARIN 30 MG/0.3 ML SYG SC SCH (08:48)
[2017-04-01] MEDS ORDERED: PHENTERMINE HCL 37.5 MG PO SCH (09:00)
[2017-04-01] MEDS ORDERED: BIOTIN 1000 MCG PO SCH (09:00)
[2017-04-01] MEDS: NICOTINE (14 MG/24 HR) PATCH TRANSDERM SCH (09:28)
[2017-04-01] MEDS: traMADol 50 MG TAB PO PRN ×2 (10:48→23:24)
[2017-04-01 15:12] VITALS: BP 139/88; RESP 16
--- NOTE | 2017-04-01 17:56 | RADRPT ---
PROCEDURE: US Pelvis. CLINICAL INDICATION: Pelvic pain. Left adnexal 3.3 cm lesion seen on prior CT scan. TECHNIQUE: The pelvis was evaluated with transabdominal and transvaginal sonography in the axial a nd sagittal planes. COMPARISON: CT scan of the abdomen and pelvis dated 03/29/2017. FINDINGS: The uterus measures 7.6 x 4.4 x 5.5 cm. The uterus is heterogeneous. There is an anterior fibroid i n the uterus measuring 3.3 x 3.0 x 3.0 cm. The endometrium is not visualized. The ovaries are not visualized. There is no other pelvic mass or free fluid. IMPRESSION: 1. Heterogeneous uterus. 2. Anterior fibroid in the uterus measuring 3.3 cm. 3. Endometrium and ovaries not visualized. RPTAT: QQ .Thomas Neff MD, Date Time Electronically viewed and signed by .Thomas Neff MD, on 04/01/2017 17:55 .R/
[2017-04-01 19:15] VITALS: BP 125/87; RESP 18
[2017-04-01] MEDS ORDERED: DIPHENHYDRAMINE 50 MG CAP PO ONE (21:00)
[2017-04-01] MEDS: ZOLPIDEM 5 MG TAB PO PRN (23:24)
[2017-04-02] MEDS: OXYCODONE/ACETAMINOPHEN (5/325) TAB PO PRN ×3 (01:24→10:54)
[2017-04-02 02:00] VITALS: BP 123/67; RESP 18
[2017-04-02] MEDS: DIPHENHYDRAMINE 50 MG CAP PO PRN ×2 (03:48→11:00)
[2017-04-02 08:06] VITALS: BP 109/67; RESP 18
[2017-04-02] MEDS: GABAPENTIN 300 MG CAP PO SCH (08:51)
[2017-04-02] MEDS: VENLAFAXINE (XR) 75 MG CAP PO SCH (08:51)
[2017-04-02] MEDS: traMADol 50 MG TAB PO PRN (08:52)
[2017-04-02] MEDS: clonAZEPAM 0.5 MG TAB PO PRN (08:52)
[2017-04-02] MEDS: NICOTINE (14 MG/24 HR) PATCH TRANSDERM SCH (08:53)
[2017-04-02] MEDS: ENOXAPARIN 30 MG/0.3 ML SYG SC SCH (08:59)
[2017-04-02] MEDS: AMLODIPINE 5 MG TAB PO SCH (10:58)
--- NOTE | 2017-04-02 11:38 | QN ---
Documentation Comment Brief date of discharge note Pt was supposed to be discharged yesterday but this was held up 2/2 delayed return of radiology results US results viewed with pt. BP stable overnight. Test results dw pt and she was advised to f/u with her balloon pilot regarding her fibroids and to f/u with her PCP in 1 week for BP check and ChemP Pt advised to take norvasc monotherapy for BP and no more ARB/dieretic until see by PCP VINNIE CAMPA MD Apr 02, 2017 11:38
== END 2017-04-02 12:05 | disposition home or self-care (01) | DRG 684 ==
LOC: E/R 13:42 → MS4 19:38 → MS1 03-31 17:01
PROVIDERS: ADMIT Internal Medicine; ATTEND Internal Medicine
DX: N17.9 Acute kidney failure, unspecified (principal); I95.9 Hypotension, unspecified; D72.829 Elevated white blood cell count, unspecified; D25.9 Leiomyoma of uterus, unspecified; E86.0 Dehydration; F17.200 Nicotine dependence, unspecified, uncomplicated; F41.9 Anxiety disorder, unspecified; F43.10 Post-traumatic stress disorder, unspecified; G89.29 Other chronic pain; I10 Essential (primary) hypertension; K57.90 Diverticulosis of intestine, part unspecified, without perforation or abscess without bleeding; M54.5 Low back pain; N83.8 Other noninflammatory disorders of ovary, fallopian tube and broad ligament
CPT/HCPCS: 36415; 71010; 74177; 76830; 76856; 80048; 80053; 80307; 81001; 82140; 82607; 82962; 83605; 84443; 84484; 85025; 85610; 85730; 87040; 87086; 93005; 96361; 96374; 96375; C9113; J1650; J2310; J7030; Q9967

== ENCOUNTER 2017-05-02 16:30 | Emergency (ER) | payer OTHER ==
[~2017-05-02] VITALS: Ht 162.6 cm; Wt 89.0 kg
[~2017-05-02 16:30] MED LIST changes: -ALBU18HF INHALATION; +AMLO-145 PO; +BIOT10004 PO; -CEPH-443 PO; -CETI10TA34 PO; +CLON1TAB3 PO; -CLON2TAB3 PO; -LIDO5CRE18 TP; -NAPR-260 PO; -NICO1PAT6 TD; +PHEN37.53 PO; -PREMVAG VAG; -THIA50TA10 PO; +TRAM-40 PO; -UDLOM PO; -VENL100T PO; +VENL150C PO; +VENL75TA2 PO; -ZOLP10TA PO
[2017-05-02 16:35] VITALS: Ht 162.6 cm; Wt 89.0 kg
[2017-05-02] MEDS ORDERED: HYDROCODONE/APAP (5/325) TAB PO ONE (18:30)
--- NOTE | 2017-05-02 19:46 | RADRPT ---
PROCEDURE: XR Lumbar Spine. CLINICAL INDICATION: Trauma. Pain. TECHNIQUE: AP, lateral and cone-down lateral view of the lumbar spine were obtained. COMPARISON: CT pelvis 03/29/2017. FINDINGS: There is a mild levoscoliosis with apex at L3. Alignment is otherwise maintained. There is a mild superior loss of height of the L1 vertebral body consistent with an acute compression fracture, not present on CT 03/29/2017 armando. There is maintenance of height of the remainder of the lumbar verteb ral bodies. There is no spondylolisthesis. No other fracture is identified. Pedicles are intact. Bone mineralization is within normal limits. Soft tissues are unremarkable. IMPRESSION: Mild levoscoliosis. Acute mild superior endplate depression of the L1 vertebral body, not present on the prior CT of 03/29/2017.. RPTAT: HMVK .Juan Bell MD, Date Time Electronically viewed and signed by .Juan Bell MD, on 05/02/2017 19:45 .K/
--- NOTE | 2017-05-02 19:47 | RADRPT ---
PROCEDURE: XR Left Foot. CLINICAL INDICATION: Trauma. Pain. TECHNIQUE: AP, lateral and oblique views of the left foot was obtained. The images were reviewed on a PACS workstation. COMPARISON: None. FINDINGS: There are no fractures. Joint relationships are maintained. Bone mineralization is within normal l imits. Soft tissues are unremarkable. IMPRESSION: No acute abnormality. RPTAT: HMVK .Juan Bell MD, MD Date Time Electronically viewed and signed by .Juan Bell MD, on 05/02/2017 19:47 .K/
--- NOTE | 2017-05-02 19:48 | RADRPT ---
PROCEDURE: XR Left Knee. CLINICAL INDICATION: Left knee pain. Trauma. TECHNIQUE: Three views of the left knee are available for review. COMPARISON: None available FINDINGS: There is no fracture. Joint relationships are maintained. Patella is unremarkable. Bone mineraliza tion is within normal limits. Soft tissues are unremarkable. IMPRESSION: 1. Unremarkable left knee x-ray series. 2. No acute fracture or dislocation is seen. RPTAT: HMVK .Juan Bell MD, MD Date Time Electronically viewed and signed by .Juan Bell MD, on 05/02/2017 19:47 .K/
[2017-05-02] MEDS ORDERED: NAPR-688 PO (20:00)
[2017-05-02] MEDS ORDERED: IBUP400T22 PO (20:00)
[2017-05-02] MEDS ORDERED: HYDR-902 PO (20:58)
--- NOTE | 2017-05-02 21:24 | ERD ---
ER Documentation Chief Complaint Date/Time DATE: 05/02/17 TIME: 21:08 Chief Complaint GROUND LEVEL FALL, HAS BACK PAIN HPI 56-year-old female With complex regional pain syndrome Presents To the emergency department complaining of left foot pain since this morning . Patient states that she has left knee and left foot pain that she cannot ambulate. She states the pain is severe. Patient states that when she woke up this morning she fell on her lumbar back since she had so much left foot pain. She denies any bladder, bowel incontinence. She has not taken any medications for this ROS All systems reviewed and are negative except as per history of present illness. Medications Home Meds Active Scripts Hydrocodone/Acetaminophen ([place] 10-325 Tablet) 1 Each Tablet, 1 TAB PO Q6H Y for PAIN, #20 TAB Prov:NEYDA HOBSON PA-C 05/02/17 Naproxen* (Naproxen*) 500 Mg Tablet, 500 MG PO BID, #30 TAB Prov:NEYDA HOBSON PA-C 05/02/17 Amlodipine Besylate* (Amlodipine Besylate*) 5 Mg Tablet, 10 MG PO DAILY for 14 Days, #14 TAB Prov:VINNIE CAMPA MD 04/01/17 Reported Medications Clonazepam* (Clonazepam*) 1 Mg Tablet, 1 MG PO BID Y for ANXIETY, TAB 03/29/17 Phentermine Hcl (Phentermine Hcl) 37.5 Mg Tablet, 37.5 MG PO BID, TAB 03/29/17 Tramadol Hcl* (Ultram*) 50 Mg Tablet, 150 MG PO Q12H Y for PAIN, TAB 03/29/17 Biotin (Biotin) 1,000 Mcg Tab.chew, 1000 MCG PO DAILY, TAB.CHEW 03/29/17 Venlafaxine Hcl* (Effexor XR*) 150 Mg Cap.sr.24h, 150 MG PO QAM, CAP 03/29/17 Venlafaxine Hcl* (Effexor XR*) 75 Mg Tab.er.24, 75 MG PO QAM, TAB.SA 03/29/17 Gabapentin* (Gabapentin*) 600 Mg Tablet, 1200 MG PO TID, #180 TAB 10/09/16 Dicyclomine Hcl* (Bentyl*) 10 Mg Capsule, 10 MG PO TID Y for PRN, CAP 10/09/16 Allergies Allergies: Coded Allergies: bupropion (Verified Allergy, Unknown, SEIZURE, 03/29/17) PMhx/Soc History of Surgery: Yes (c section, rt leg surgery) Anesthesia Reaction: No Hx Neurological Disorder: No Hx Respiratory Disorders: No Hx Cardiac Disorders: Yes (HTN) Hx Psychiatric Problems: Yes (crps, MDD PTSD) Hx Miscellaneous Medical Probl: Yes (encephalopathy) Hx Alcohol Use: Yes (occasional) Hx Substance Use: No Hx Tobacco Use: No Smoking Status: Never smoker Physical Exam Vitals Vital Signs Date Time Temp Pulse Resp B/P Pulse Ox O2 Delivery O2 Flow Rate FiO2 05/02/17 16:35 98.6 88 20 109/76 99 Physical Exam General: WD/WN, in no apparent distress, non-toxic appearing HENT: NC/AT Eyes: Conjunctiva normal Neck: Supple Pulm: Clear to auscultation, normal labored breathing; no wheezing/rales/ rhonchi heard CV: Good capillary refill GI: Non-distended, no guarding Back: No masses Ext: Patient has a TTP left foot and lower extremity, +2 pedal pulses, no swelling or pitting edema noted Neuro: Moves on all fours Skin: intact Psych: Normal mood Results 24 hrs Current Medications Medications (Trade) Dose Ordered Sig/Mayo Route PRN Reason Start Time Stop Time Status Last Admin Dose Admin Acetaminophen/ Hydrocodone Bitart ([place] (5/325)) 2 tab ONCE ONCE PO 05/02/17 18:30 05/02/17 18:31 DC 05/02/17 18:40 Procedures/MDM 56 year old female presents to the emergency department complaining of left foot pain and lumbar back pain since this morning.XR of left foot, knee and lumbar were done and did not show any acute fracture or dislocation. XR lumbar stated: Mild levoscoliosis. Acute mild superior endplate depression of the L1 vertebral body, not present on the prior CT of 03/29/2017.. Patient is appropriate to Patient states she cannot ambulate or wear crutches because of upper arm strength, she is stating she wants to get admitted because she lives alone, she states She cannot take care of herself and she is insisting to stay in the hospital. However at this time patient does not have any emergent conditions that requires admission. I have consulted a 7th grade social studies teacher, they were unable to place her any significant due to Wednesday night weekend. They have given me information on how to acquire a caregiver but it will take 1 month. I have discussed with patient that she is appropriate to be discharged with appropriate amount of pain medications for her to be able to ambulate and take care of herself. Patient eventually understood and agreed with this. I have consulted Dr. Garrido who has also spoke to the patient in regards to her condition. Patient is stable to be discharged home with precautions to return emergency department for any worsening sinus symptoms. She understands and agrees with this plan Departure Diagnosis: Primary Impression: Back pain Back pain location: low back pain Chronicity: acute Back pain laterality: bilateral Sciatica presence: without sciatica Qualified Code: M54.5 - Acute bilateral low back pain without sciatica Additional Impression: Left foot pain Condition: Stable Patient Instructions: Back Pain (Acute Or Chronic) Additional Instructions: Return to this facility in 2 DAYS for a follow-up exam.Return sooner if your condition worsens. Return to this facility if you are not improving as expected. NEYDA HOBSON PA-C May 02, 2017 21:18
== END 2017-05-02 21:18 | disposition home or self-care (01) ==
LOC: FTE 16:30
DX: M54.5 Low back pain (principal); M79.672 Pain in left foot; I10 Essential (primary) hypertension
CPT/HCPCS: 72100; 73562; 73630; Z7502; Z7610

== ENCOUNTER 2017-05-07 16:29 | Emergency (ER) | payer OTHER ==
[~2017-05-07] VITALS: Ht 165.1 cm; Wt 80.0 kg
[~2017-05-07 16:29] MED LIST changes: +HYDR-902 PO; +NAPR-688 PO
[2017-05-07 16:34] VITALS: Ht 165.1 cm; Wt 80.0 kg
[2017-05-07] MEDS ORDERED: SOD CHLORIDE 0.9% 1,000 ML IV STA (19:50)
[2017-05-07] MEDS ORDERED: morphine 4 MG/ML VIAL IV STA (19:50)
[2017-05-07 20:50] LABS: BASOPHIL # 0.1 10^3/ul (0.0-0.1); BASOPHILS % 0.6 % (0.0-2.0); EOSINOPHILS # 0.2 10^3/ul (0.0-0.5); HEMOGLOBIN 11.3 g/dl (12.0-16.0); LYMPHOCYTES % 33.6 % (15.0-51.0); MEAN CORPUSCULAR HEMOGLOBIN 33.6 pg (29.0-33.0); MEAN CORPUSCULAR HGB CONC 33.2 g/dl (32.0-37.0); MEAN CORPUSCULAR VOLUME 101.2 fl (82.0-101.0); MEAN PLATELET VOLUME 10.4 fl (7.4-10.4); MONOCYTE # 0.6 10^3/ul (0.3-0.9); MONOCYTES % 6.7 % (0.0-11.0); NEUTROPHILS % 56.8 % (39.0-77.0); PLATELET COUNT 202 10^3/UL (140-415); RED BLOOD COUNT 3.36 10^6/ul (4.20-5.40); RED CELL DISTRIBUTION WIDTH 13.1 % (11.5-14.5)
[2017-05-07] MEDS ORDERED: DIPHENHYDRAMINE 50 MG CAP PO ONE (21:00)
[2017-05-07 21:02] LABS: ADD UMIC YES; UR ASCORBIC ACID NEGATIVE (NEGATIVE); UR BACTERIA FEW /HPF (NONE SEEN); UR BILIRUBIN (Dip) NEGATIVE (NEGATIVE); UR BLOOD (Dip) NEGATIVE (NEGATIVE); UR CLARITY CLOUDY (CLEAR); UR COLOR AMBER (YELLOW); UR GLUCOSE (Dip) NEGATIVE (NEGATIVE); UR KETONES (Dip) NEGATIVE (NEGATIVE); UR LEUKOCYTE ESTERASE (Dip) 3+ Leu/ul (NEGATIVE); UR MUCUS FEW /HPF (NONE SEEN); UR NITRITE (Dip) NEGATIVE (NEGATIVE); UR NONSQUAMOUS EPITHELIAL CELL 3 /HPF (NONE SEEN); UR RBC 8 /HPF (0-5); UR SPECIFIC GRAVITY (Dip) 1.017 (1.003-1.030); UR SQUAMOUS EPITHELIAL CELL MANY /HPF (FEW); UR TOTAL PROTEIN (Dip) 2+ mg/dl (NEGATIVE); UR UROBILINOGEN (Dip) NEGATIVE (NEGATIVE); UR WBC CLUMPS FEW /HPF (NONE SEEN)
[2017-05-07 21:11] LABS: ALBUMIN 4.4 g/dl (3.3-4.9); ALBUMIN/GLOBULIN RATIO 1.46; CALCIUM 9.9 mg/dl (8.4-10.2); CREATININE 1.52 mg/dl (0.44-1.00); POTASSIUM 3.7 mmol/L (3.5-5.1); TOTAL PROTEIN 7.4 g/dl (6.1-8.1)
--- NOTE | 2017-05-07 21:29 | RADRPT ---
PROCEDURE: XR Ankle. CLINICAL INDICATION: Pain in the left ankle. TECHNIQUE: AP, oblique and lateral views of the right ankle were performed. COMPARISON: None. FINDINGS: There is normal mineralization and alignment. Nonspecific osseous lucency at the anterior lateral as pect of the articular tibia. Soft tissue swelling over the anterior ankle. No fracture or osseous lesion is identified. The joints are normal. The soft tissues are otherwise unremarkable. IMPRESSION: 1. Soft tissue swelling with nonspecific osseous lucency at the anterior lateral aspect of the nuris cular tibia. 2. Otherwise, no identified acute fracture. 3. CT examination may be of further use. RPTAT: [facility] Physician Norberto Date Time Electronically viewed and signed by Physician Norberto on 05/07/2017 21:28 RS/
--- NOTE | 2017-05-07 21:37 | RADRPT ---
PROCEDURE: FOOT RADIOGRAPH CLINICAL INDICATION: Pain. TECHNIQUE: AP, lateral and oblique views of the left foot were completed. COMPARISON: 05/02/2017. FINDINGS: The bones are intact. The joint spaces are preserved.. There is no osteoblastic or osteolytic lesion . The soft tissues are unremarkable. IMPRESSION: Unremarkable left foot radiograph. RPTAT: HMZ .Juan Pinzon MD, MD Date Time Electronically viewed and signed by .Juan Pinzon MD, on 05/07/2017 21:36 .Z/
--- NOTE | 2017-05-07 21:49 | RADRPT ---
PROCEDURE: Left Lower extremity Doppler US. CLINICAL INDICATION: Left lower extremity pain. TECHNIQUE: Multiple sonographic images of the left lower extremity were obtained with and without Doppler interrogation. The images were reviewed on a PACS workstation. COMPARISON: No prior studies are available for comparison. FINDINGS: The left distal common femoral, superficial femoral and popliteal veins are normal in appearance wit h normal response to augmentation. No evidence of DVT. The left peroneal and posterior tibial vein s are normal in appearance without evidence of thrombus. There is no significant soft tissue swelli ng or evidence of Shaikh's cyst. IMPRESSION: Normal left lower extremity Doppler ultrasound. No evidence of DVT. RPTAT: HGAS .Billy Mirza MD, MD Date Time Electronically viewed and signed by .Billy Mirza MD, on 05/07/2017 21:49 .S/
--- NOTE | 2017-05-07 23:13 | RADRPT ---
PROCEDURE: MRI lumbar spine CLINICAL INDICATION: Lumbar pain with bilateral lower extremity paresthesias status post fall TECHNIQUE: An MRI of the lumbar spine was performed on a high resolution high definition, 3.0 Tesl a MRI scanner utilizing the following sequences: Sagittal T1 weighted, sagittal and dual echo axial T2 weighted, and sagittal T2 weighted with fat saturation. COMPARISON: Lumbar spine series dated 05/02/[address] dated 03/29/2070 FINDINGS: There is normal lordosis of the lumbar spine and reverse S-shaped thoracolumbar scoliosis. The prim cyndi or levoscoliosis noted in the upper lumbar spine has apex at the L2-3 level and a compensatory l ower lumbar dextroscoliosis has apex at the L4-5 level. The vertebral bodies are remarkable for inte rmediate signal intensity in the superior half of the L1 vertebral body corresponding to T2 and T2 f at saturation hyperintensity. This is compatible with an acute compression fracture deformity and a pproximately 35% vertebral body height loss is noted anteriorly. No evidence for retropulsion into the spinal canal is noted. The remainder of the vertebral body heights and signal are normal. The intervertebral discs demonstrate disk desiccation at the L3-4 through L5-S1 levels. The conus termi nates normally at the L1-2 level. The visualized imaged portions of the paravertebral soft tissues are normal. The specific axial levels are as follows: T12 - L1: The disk is normal in appearance. The central canal, subarticular recess, and neural fo ramen are patent. Mild bilateral facet arthropathy is present. L1 - L2: The disk is normal in appearance. The central canal, subarticular recess, and neural for amen are patent. Mild bilateral facet arthropathy is present. L2 - L3: Disk desiccation is present with mild disk space height loss and a mild 2 mm annular bulge . AP canal dimension is 10 mm. Mild central canal stenosis without subarticular recess stenosis or neural foraminal stenosis is present. Mild bilateral facet arthropathy is present. L3 - L4: Disk desiccation and mild disk space height loss is present. A 3 mm mild broad-based bulg e is noted. Left greater than right facet osteoarthropathy and ligamentum hypertrophy is present. A P canal dimension is 10 mm. Mild central canal stenosis is present without subarticular recess sten osis. Mild bilateral neural foraminal stenosis is present. L4 - L5: Disk desiccation is present with mild disk space height loss and a mild 3-mm broad-based b ulge. Mild bilateral facet arthropathy and ligamentum hypertrophy is present. AP canal dimension i s 10 mm. This results in a mild central canal stenosis bilateral subarticular recess stenosis and m ild bilateral neural foraminal stenosis. L5 - S1: Disk desiccation is present with moderate disk space height loss and vacuum phenomenon. A 3 mm mild broad-based bulge is present. Moderate bilateral facet arthropathy and ligamentum hypert rophy is present. The central canal, subarticular recesses are patent. Mild bilateral neural mikaela inal stenosis is present. IMPRESSION: 1. Acute L1 vertebral body compression fracture with approximately 35% vertebral body height loss a nd no retropulsion into the spinal canal. 2. Reverse S-shaped thoracolumbar scoliosis as described above. 3. Multilevel broad-based disk bulges at the L2-3 through L5-S1 levels with mild central canal sten osis at L2-3 through L4-5. 4. Multilevel neural foraminal stenosis at the L3-4 through L5-S1 levels as noted above. 5. Multilevel facet osteoarthropathy. RPTAT: HDC .Francisca Etienne MD, Date Time Electronically viewed and signed by .Francisca Etienne MD, MD on 05/07/2017 23:13 .C/
[2017-05-07] MEDS ORDERED: OXYC-279 PO (23:30)
[2017-05-08 00:09] VITALS: BP 117/69; PULSE 80; RESP 20
--- NOTE | 2017-05-08 00:09 | ERD ---
ER Documentation Chief Complaint Date/Time DATE: 05/08/17 TIME: 00:03 Chief Complaint patient here for a wound recheck HPI 56-year-old female coming in complaining of left foot pain and nerve decreased sensation 1 week. Patient states the symptoms started after she was hit by her friend's dog and fell backwards. Patient did not have loss of consciousness or head injury. Patient states she has had foot drop since this happened. She states that she has urinary retention. Patient states she does not have any numbness or tingling within the saddle region. She has no bowel incontinence. Denies fever. Denies abdominal pain. Patient states she also suffers from CRPS ROS All systems reviewed and are negative except as per history of present illness. Medications Home Meds Active Scripts Oxycodone HCl/Acetaminophen (Percocet 5-325 mg Tablet) 1 Each Tablet, 1 EACH PO QHS, #6 TAB Prov:FERNANDO VAZQUEZ PA-C 05/07/17 Hydrocodone/Acetaminophen ([place] 10-325 Tablet) 1 Each Tablet, 1 TAB PO Q6H Y for PAIN, #20 TAB Prov:NEYDA HOBSON PA-C 05/02/17 Naproxen* (Naproxen*) 500 Mg Tablet, 500 MG PO BID, #30 TAB Prov:NEYDA HOBSON PA-C 05/02/17 Amlodipine Besylate* (Amlodipine Besylate*) 5 Mg Tablet, 10 MG PO DAILY for 14 Days, #14 TAB Prov:VINNIE CAMPA MD 04/01/17 Reported Medications Clonazepam* (Clonazepam*) 1 Mg Tablet, 1 MG PO BID Y for ANXIETY, TAB 03/29/17 Phentermine Hcl (Phentermine Hcl) 37.5 Mg Tablet, 37.5 MG PO BID, TAB 03/29/17 Tramadol Hcl* (Ultram*) 50 Mg Tablet, 150 MG PO Q12H Y for PAIN, TAB 03/29/17 Biotin (Biotin) 1,000 Mcg Tab.chew, 1000 MCG PO DAILY, TAB.CHEW 03/29/17 Venlafaxine Hcl* (Effexor XR*) 150 Mg Cap.sr.24h, 150 MG PO QAM, CAP 03/29/17 Venlafaxine Hcl* (Effexor XR*) 75 Mg Tab.er.24, 75 MG PO QAM, TAB.SA 03/29/17 Gabapentin* (Gabapentin*) 600 Mg Tablet, 1200 MG PO TID, #180 TAB 10/09/16 Dicyclomine Hcl* (Bentyl*) 10 Mg Capsule, 10 MG PO TID Y for PRN, CAP 10/09/16 Allergies Allergies: Coded Allergies: bupropion (Verified Allergy, Unknown, SEIZURE, 03/29/17) PMhx/Soc History of Surgery: Yes (c section, rt leg surgery) Anesthesia Reaction: No Hx Neurological Disorder: No Hx Respiratory Disorders: No Hx Cardiac Disorders: Yes (HTN) Hx Psychiatric Problems: Yes (crps, MDD PTSD) Hx Miscellaneous Medical Probl: Yes (encephalopathy) Hx Alcohol Use: Yes (occasional) Hx Substance Use: No Hx Tobacco Use: No Smoking Status: Never smoker Physical Exam Vitals Vital Signs Date Time Temp Pulse Resp B/P Pulse Ox O2 Delivery O2 Flow Rate FiO2 05/07/17 16:34 98.3 101 20 91/63 93 Physical Exam GENERAL: The patient is well-appearing, well-nourished, in no acute distress CHEST: Clear to auscultation bilaterally. There are no rales, wheezes or rhonchi. HEART: Regular rate and rhythm. No murmurs, clicks, rubs or gallops. No S3 or S4. EXTREMITIES: Equal pulses bilaterally. Mild numbness to left lower extremity. No obvious deformities or tenderness to palpation. No crepitus on exam. Patient is unable to flex and extend at the left foot. NEUROLOGIC: Decreased neuro sensation to the left distal extremity. SKIN: There is no apparent rash or petechiae. The skin is warm and dry. No erythema. No open wounds. No streaking. Result Diagram: 05/07/17202905/07/172029 Results 24 hrs Laboratory Tests Test 05/07/17 20:00 05/07/17 20:30 Urine Color [place] Urine Clarity CLOUDY Urine pH 5.0 Urine Specific [place] 1.017 Urine Ketones NEGATIVEmg/dL Urine Nitrite NEGATIVEmg/dL Urine Bilirubin NEGATIVEmg/dL Urine Urobilinogen NEGATIVEmg/dL Urine Leukocyte Esterase 3+Peter/ul Urine Microscopic RBC 8/HPF Urine Microscopic WBC > 182/HPF Urine Squamous Epithelial Cells MANY/HPF Urine Bacteria FEW/HPF Urine Mucus FEW/HPF Urine Hemoglobin NEGATIVEmg/dL Urine Glucose NEGATIVEmg/dL Urine Total Protein 2+mg/dl White Blood Count 9.010^3/ul Red Blood Count 3.3610^6/ul Hemoglobin 11.3g/dl Hematocrit 34.0% Mean Corpuscular Volume 101.2fl Mean Corpuscular Hemoglobin 33.6pg Mean Corpuscular Hemoglobin Concent 33.2g/dl Red Cell Distribution Width 13.1% Platelet Count 54813^3/UL Mean Platelet Volume 10.4fl Neutrophils % 56.8% Lymphocytes % 33.6% Monocytes % 6.7% Eosinophils % 2.0% Basophils % 0.6% Nucleated Red Blood Cells % 0.0/100WBC Neutrophils # (Manual) 5.110^3/ul Lymphocytes # 3.010^3/ul Monocytes # 0.610^3/ul Eosinophils # 0.210^3/ul Basophils # 0.110^3/ul Nucleated Red Blood Cells # 0.010^3/ul Sodium Level 141mmol/L Potassium Level 3.7mmol/L Chloride Level 102mmol/L Carbon Dioxide Level 27mmol/L Anion Gap 16 Blood Urea Nitrogen 16mg/dl Creatinine 1.52mg/dl Glucose Level 81mg/dl Calcium Level 9.9mg/dl Total Bilirubin 0.0mg/dl Direct Bilirubin 0.00mg/dl Indirect Bilirubin 0.0mg/dl Aspartate Amino Transf (AST/SGOT) 24IU/L Alanine Aminotransferase (ALT/SGPT) 26IU/L Alkaline Phosphatase 79IU/L Total Protein 7.4g/dl Albumin 4.4g/dl Globulin 3.00g/dl Albumin/Globulin Ratio 1.46 Lipase 38U/L Serum HCG, Qualitative NEGATIVE Current Medications Medications (Trade) Dose Ordered Sig/Mayo Route PRN Reason Start Time Stop Time Status Last Admin Dose Admin Sodium Chloride (NS) 1,000 ml @ 1,000 mls/hr Q1H STAT IV 05/07/17 19:50 05/07/17 20:49 DC 05/07/17 20:36 Morphine Sulfate (morphine) 4 mg ONCE STAT IV 05/07/17 19:50 05/07/17 19:54 DC 05/07/17 20:37 Diphenhydramine HCl (Benadryl) 50 mg ONCE ONCE PO 05/07/17 21:00 05/07/17 21:01 DC 05/07/17 20:47 Procedures/MDM DIAGNOSTIC IMAGING REPORT Patient: ASHWINI CHONG : 1960 Age: 56 Sex: F MR #: [id number] DOS: 05/07/172010 Ordering MD: PRAKASH VAZQUEZ PA-C Location: [facility] Room/Bed: PROCEDURE: MRI lumbar spine CLINICAL INDICATION: Lumbar pain with bilateral lower extremity paresthesias status post fall TECHNIQUE: An MRI of the lumbar spine was performed on a high resolution high definition, 3.0 Jina MRI scanner utilizing the following sequences: Sagittal T1 weighted, sagittal and dual echo axial T2 weighted, and sagittal T2 weighted with fat saturation. COMPARISON: Lumbar spine series dated 05/02/[address] dated 03/29/2070 FINDINGS: There is normal lordosis of the lumbar spine and reverse S-shaped thoracolumbar scoliosis. The primary or levoscoliosis noted in the upper lumbar spine has apex at the L2-3 level and a compensatory lower lumbar dextroscoliosis has apex at the L4-5 level. The vertebral bodies are remarkable for intermediate signal intensity in the superior half of the L1 vertebral body corresponding to T2 and T2 fat saturation hyperintensity. This is compatible with an acute compression fracture deformity and approximately 35% vertebral body height loss is noted anteriorly. No evidence for retropulsion into the spinal canal is noted. The remainder of the vertebral body heights and signal are normal. The intervertebral discs demonstrate disk desiccation at the L3-4 through L5-S1 levels. The conus terminates normally at the L1-2 level. The visualized imaged portions of the paravertebral soft tissues are normal. The specific axial levels are as follows: T12 - L1: The disk is normal in appearance. The central canal, subarticular recess, and neural foramen are patent. Mild bilateral facet arthropathy is present. L1 - L2: The disk is normal in appearance. The central canal, subarticular recess, and neural foramen are patent. Mild bilateral facet arthropathy is present. L2 - L3: Disk desiccation is present with mild disk space height loss and a mild 2 mm annular bulge. AP canal dimension is 10 mm. Mild central canal stenosis without subarticular recess stenosis or neural foraminal stenosis is present. Mild bilateral facet arthropathy is present. L3 - L4: Disk desiccation and mild disk space height loss is present. A 3 mm mild broad-based bulge is noted. Left greater than right facet osteoarthropathy and ligamentum hypertrophy is present. AP canal dimension is 10 mm. Mild central canal stenosis is present without subarticular recess stenosis. Mild bilateral neural foraminal stenosis is present. L4 - L5: Disk desiccation is present with mild disk space height loss and a mild 3-mm broad-based bulge. Mild bilateral facet arthropathy and ligamentum hypertrophy is present. AP canal dimension is 10 mm. This results in a mild central canal stenosis bilateral subarticular recess stenosis and mild bilateral neural foraminal stenosis. L5 - S1: Disk desiccation is present with moderate disk space height loss and vacuum phenomenon. A 3 mm mild broad-based bulge is present. Moderate bilateral facet arthropathy and ligamentum hypertrophy is present. The central canal, subarticular recesses are patent. Mild bilateral neural foraminal stenosis is present. IMPRESSION: 1. Acute L1 vertebral body compression fracture with approximately 35% vertebral body height loss and no retropulsion into the spinal canal. 2. Reverse S-shaped thoracolumbar scoliosis as described above. 3. Multilevel broad-based disk bulges at the L2-3 through L5-S1 levels with mild central canal stenosis at L2-3 through L4-5. 4. Multilevel neural foraminal stenosis at the L3-4 through L5-S1 levels as noted above. 5. Multilevel facet osteoarthropathy. DIAGNOSTIC IMAGING REPORT Patient: ASHWINI CHONG : 1960 Age: 56 Sex: F MR #: [id number] DOS: 05/07/171953 Ordering MD: PRAKASH VAZQUEZ PA-C Location: [facility] Room/Bed: PROCEDURE: XR Ankle. CLINICAL INDICATION: Pain in the left ankle. TECHNIQUE: AP, oblique and lateral views of the right ankle were performed. COMPARISON: None. FINDINGS: There is normal mineralization and alignment. Nonspecific osseous lucency at the anterior lateral aspect of the articular tibia. Soft tissue swelling over the anterior ankle. No fracture or osseous lesion is identified. The joints are normal. The soft tissues are otherwise unremarkable. IMPRESSION: 1. Soft tissue swelling with nonspecific osseous lucency at the anterior lateral aspect of the articular tibia. 2. Otherwise, no identified acute fracture. 3. CT examination may be of further use. DIAGNOSTIC IMAGING REPORT Patient: ASHWINI CHONG : 1960 Age: 56 Sex: F MR #: [id number] DOS: 05/07/171953 Ordering MD: PRAKASH VAZQUEZ PA-C Location: [facility] Room/Bed: PROCEDURE: FOOT RADIOGRAPH CLINICAL INDICATION: Pain. TECHNIQUE: AP, lateral and oblique views of the left foot were completed. COMPARISON: 05/02/2017. FINDINGS: The bones are intact. The joint spaces are preserved.. There is no osteoblastic or osteolytic lesion. The soft tissues are unremarkable. IMPRESSION: Unremarkable left foot radiograph. DIAGNOSTIC IMAGING REPORT Patient: ASHWINI CHONG : 1960 Age: 56 Sex: F MR #: [id number] DOS: 05/07/171949 Ordering MD: PRAKASH VAZQUEZ PA-C Location: [facility] Room/Bed: PROCEDURE: Left Lower extremity Doppler US. CLINICAL INDICATION: Left lower extremity pain. TECHNIQUE: Multiple sonographic images of the left lower extremity were obtained with and without Doppler interrogation. The images were reviewed on a PACS workstation. COMPARISON: No prior studies are available for comparison. FINDINGS: The left distal common femoral, superficial femoral and popliteal veins are normal in appearance with normal response to augmentation. No evidence of DVT. The left peroneal and posterior tibial veins are normal in appearance without evidence of thrombus. There is no significant soft tissue swelling or evidence of Shaikh's cyst. IMPRESSION: Normal left lower extremity Doppler ultrasound. No evidence of DVT. ER Course: Morphine given in the ED MDM: 56-year-old female coming in complaining of left ankle pain and left lower extremity numbness after dog ran into her foot. Patient is complaining of foot drop. I have low suspicion for cauda equina. I have low suspicion for discitis or epidural abscess. Patient's x-rays are within normal limits and MRI does not show signs of cord compression. I have low suspicion for vascular insufficiency. Ultrasound is within normal limits. I have low suspicion for acute fracture dislocation. Patient's exams are within normal limits. Imaging studies are within normal limits. Patient is recommended to follow-up with orthopedist within 1-2 days for close evaluation. She is told symptoms change or worsen to return to the ER immediately. All questions answered at the time of discharge. This case was discussed with Dr. Kumar. Departure Diagnosis: Primary Impression: Left foot pain Condition: Stable Patient Instructions: Contusion, Lower Extremity Referrals: [facility] (PCP) JACOB CASANOVA [facility] YOU HAVE RECEIVED A MEDICAL SCREENING EXAM AND THE RESULTS INDICATE THAT YOU DO NOT HAVE A CONDITION THAT REQUIRES URGENT TREATMENT IN THE EMERGENCY DEPARTMENT. FURTHER EVALUATION AND TREATMENT OF YOUR CONDITION CAN WAIT UNTIL YOU ARE SEEN IN YOUR DOCTORS OFFICE WITHIN THE NEXT 1-2 DAYS. IT IS YOUR RESPONSIBILITY TO MAKE AN APPOINTMENT FOR FOLOW-UP CARE. IF YOU HAVE A PRIMARY DOCTOR --you should call your primary doctor and schedule an appointment IF YOU DO NOT HAVE A PRIMARY DOCTOR YOU CAN CALL OUR PHYSICIAN REFERRAL HOTLINE AT IF YOU CAN NOT AFFORD TO SEE A PHYSICIAN YOU CAN CHOSE FROM THE FOLLOWING [facility] [address] [facility]. [facility] [address] [facility] [address] [facility] [address] [facility] [address] [facility]. [facility] [address] Additional Instructions: FOLLOW UP WITH YOUR PRIMARY CARE PHYSICIAN TOMORROW.Return to this facility if you are not improving as expected. FERNANDO VAZQUEZ PA-C May 08, 2017 00:09
== END 2017-05-08 00:09 | disposition home or self-care (01) ==
LOC: FTE 16:29
DX: M79.672 Pain in left foot (principal); I10 Essential (primary) hypertension
CPT/HCPCS: 36415; 72148; 73610; 73630; 80053; 81001; 83690; 84703; 85025; 93971; 96374; J2270; J7030; Z7502; Z7610

== ENCOUNTER 2017-08-08 07:15 | Inpatient (IN) | payer OTHER ==
[~2017-08-08] VITALS: Ht 172.7 cm; Wt 71.7 kg
[~2017-08-08 07:15] MED LIST changes: +OXYC-279 PO
[2017-08-08 10:52] VITALS: BP 96/54; RESP 18
[2017-08-08 11:27] VITALS: Ht 172.7 cm; Wt 71.7 kg
[2017-08-08] MEDS ORDERED: clonAZEPAM 0.5 MG TAB PO PRN (11:30)
[2017-08-08] MEDS ORDERED: OXYCODONE/ACETAMINOPHEN (5/325) TAB PO PRN ×2 (11:30→19:00)
[2017-08-08] MEDS ORDERED: SOD CHLORIDE 0.9% 1,000 ML IV SCH ×2 (11:30→19:30)
[2017-08-08] MEDS ORDERED: DIPHENOXYLATE/ATROPINE TAB PO PRN (11:30)
[2017-08-08] MEDS ORDERED: ASPIRIN 325 MG TAB PO ONE (11:30)
[2017-08-08] MEDS ORDERED: ACETAMINOPHEN 325 MG TAB PO PRN (11:30)
[2017-08-08 12:32] VITALS: PULSE 65
[2017-08-08] MEDS ORDERED: GABAPENTIN 400 MG CAP PO SCH (13:00)
[2017-08-08 13:25] LABS: BASOPHILS % 0.3 % (0.0-2.0); EOSINOPHILS # 0.1 10^3/ul (0.0-0.5); EOSINOPHILS % 0.8 % (0.0-7.0); HEMOGLOBIN 11.7 g/dl (12.0-16.0); LYMPHOCYTES # 1.8 10^3/ul (0.8-2.9); LYMPHOCYTES % 12.9 % (15.0-51.0); MEAN CORPUSCULAR HEMOGLOBIN 33.7 pg (29.0-33.0); MEAN CORPUSCULAR HGB CONC 33.4 g/dl (32.0-37.0); MEAN CORPUSCULAR VOLUME 100.9 fl (82.0-101.0); MEAN PLATELET VOLUME 10.3 fl (7.4-10.4); MONOCYTE # 0.6 10^3/ul (0.3-0.9); MONOCYTES % 4.6 % (0.0-11.0); PLATELET COUNT 195 10^3/UL (140-415); RED BLOOD COUNT 3.47 10^6/ul (4.20-5.40); RED CELL DISTRIBUTION WIDTH 13.3 % (11.5-14.5); WHITE BLOOD COUNT 13.6 10^3/ul (4.8-10.8)
[2017-08-08 13:39] LABS: ALANINE AMINOTRANSFERASE 38 IU/L (13-69); ALBUMIN 4.1 g/dl (3.3-4.9); ALBUMIN/GLOBULIN RATIO 1.57; ALKALINE PHOSPHATASE 85 IU/L (42-121); ANION GAP 18 (8-16); ASPARTATE AMINO TRANSFERASE 38 IU/L (15-46); BLOOD UREA NITROGEN 27 mg/dl (7-20); CALCIUM 9.6 mg/dl (8.4-10.2); CARBON DIOXIDE 26 mmol/L (21-31); CHLORIDE 102 mmol/L (97-110); CREATININE 1.22 mg/dl (0.44-1.00); GLUCOSE 74 mg/dl (70-220); POTASSIUM 4.7 mmol/L (3.5-5.1); SODIUM 141 mmol/L (135-144); TOTAL PROTEIN 6.7 g/dl (6.1-8.1)
[2017-08-08 13:49] LABS: TROPONIN-I < 0.012 ng/ml (0.00-0.12)
[2017-08-08] MEDS ORDERED: metroNIDAZOLE 500 MG/NS (PMX) 100 ML IVPB SCH (14:00)
[2017-08-08] MEDS ORDERED: HYDROCODONE/APAP (10/325) TAB PO PRN (19:00)
[2017-08-08] MEDS ORDERED: DICYCLOMINE 10 MG CAP PO PRN (19:00)
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
[2017-08-08] MEDS: [UNRECOGNIZED DRUG - OTHER] XX SCH (19:30)
[2017-08-08] MEDS: PHENTERMINE 37.5 MG XX SCH (19:30)
[2017-08-08] MEDS: [UNRECOGNIZED DRUG - REMARK] XX SCH (19:30)
[2017-08-08 21:00] VITALS: BP 123/60; PULSE 78; RESP 19
[2017-08-08] MEDS: ENOXAPARIN 40 MG/0.4 ML SYG SC SCH (21:00)
[2017-08-08] MEDS ORDERED: PHENTERMINE HCL 37.5 MG PO SCH (21:00)
[2017-08-08] MEDS ORDERED: VENLAFAXINE (XR) 75 MG CAP PO SCH (21:00)
[2017-08-08] MEDS: GABAPENTIN 400 MG CAP PO SCH (21:17)
[2017-08-08] MEDS: metroNIDAZOLE 500 MG TAB PO SCH (21:18)
[2017-08-08] MEDS: clonAZEPAM 0.5 MG TAB PO PRN (22:28)
[2017-08-08] MEDS: morphine 2 MG INJ IV PRN (23:15)
[2017-08-09 02:00] VITALS: BP 102/57; RESP 18
[2017-08-09] MEDS: OXYCODONE/ACETAMINOPHEN (5/325) TAB PO PRN ×2 (02:27→14:24)
[2017-08-09] MEDS: morphine 2 MG INJ IV PRN ×4 (03:29→23:08)
[2017-08-09] MEDS: PHENTERMINE 37.5 MG XX SCH (03:30)
[2017-08-09] MEDS: [UNRECOGNIZED DRUG - REMARK] XX SCH (03:30)
[2017-08-09] MEDS: [UNRECOGNIZED DRUG - OTHER] XX SCH (03:30)
[2017-08-09] MEDS: metroNIDAZOLE 500 MG TAB PO SCH ×3 (06:21→21:08)
[2017-08-09 07:51] VITALS: BP 107/57; RESP 18
[2017-08-09] MEDS: LACTOBACILLUS RHAMNOSUS CAP PO SCH ×3 (08:15→18:00)
[2017-08-09] MEDS: ENOXAPARIN 40 MG/0.4 ML SYG SC SCH (09:00)
[2017-08-09] MEDS ORDERED: BIOTIN 1000 MCG PO SCH (09:00)
[2017-08-09] MEDS: ASPIRIN 325 MG TAB PO SCH (09:00)
[2017-08-09] MEDS: clonAZEPAM 0.5 MG TAB PO PRN ×2 (11:25→21:09)
[2017-08-09] MEDS: GABAPENTIN 400 MG CAP PO SCH ×3 (11:27→21:08)
[2017-08-09] MEDS: VENLAFAXINE (XR) 75 MG CAP PO SCH (11:27)
[2017-08-09] MEDS: AMLODIPINE 5 MG TAB PO SCH (11:28)
--- NOTE | 2017-08-09 13:29 | RADRPT ---
Vent Rate: 71 bpm RR Interval: 0 msec NV Interval: 148 msec QRS Duration: 80 msec QT Interval: 404 msec QTC Interval: 439 msec P-R-T [place]: 39 - 0 - 19 degrees Normal sinus rhythm Normal ECG Electronically Signed By: Juan Martinez [id number]
--- NOTE | 2017-08-09 14:11 | PN ---
Date/Time of Note Date/Time of Note DATE: 08/09/17 TIME: 14:08 Assessment/Plan VTE Prophylaxis VTE Prophylaxis Intervention: ambulation, SCD's Lines/Catheters IV Catheter Type (from Nrsg): Saline Lock Urinary Cath still in place: No Assessment/Plan Chief Complaint/Hosp Course s: 12.4 still states has spotting in the vaginal area, right arm swollen, willing to get US today o: Physical exam General: Patient is laying in bed and answers questions appropriately Mentation: Patient is alert and oriented 4, Head: Normocephalic atraumatic Eyes: EOMI, pupils reactive to light Neck: Supple, nontender, midline Respiratory: Clear to auscultation bilaterally Cardiovascular: regular rate, no obvious murmurs Gastrointestinal: non-tender to palpation, bowel sounds heard. Neurological: Moves all extremities spontaneously Assessment/Plan Acute chest pain, noncardiac etiology - Chest pain has since resolved and patient does admit to experiencing panic attack with onset of chest pain that has since resolved - Troponins negative x2 with no acute EKG changes - Continue trending troponins - Klonopin PRN for anxiety Acute vaginal discharge/bleeding - Will order vaginal US to assess uterine lining, still pending, patient refused yesterday -hgb stable R hand swelling -f/u us R arm Diarrhea - rule out Cdiff and if negative will restart Lomotil - start on probiotics Lower back pain - Chronic - Pain medication for relief - If no improvement may need pain consultation HTN - BP low and will start home meds with holding parameters ROWAN - most likely prerenal - Will give IVF and monitor renal function Anxiety/depression - continue home medications - Klonopin - Effexor Disposition - f/u US results Problems: Exam/Review of Systems Vital Signs Vitals Vital Signs Date Time Temp Pulse Resp B/P Pulse Ox O2 Delivery O2 Flow Rate FiO2 08/09/17 07:51 98.0 68 18 107/57 94 Intake and Output 08/08/17 08/08/17 08/09/17 14:59 22:59 06:59 Intake Total 100 ml 1450 ml 400 ml Balance 100 ml 1450 ml 400 ml Results Result Diagram: 08/08/17 1232 08/08/17 1232 Results 24 hrs Laboratory Tests Test 08/08/17 17:04 08/09/17 01:00 Troponin I < 0.012 Stool Occult Blood NEGATIVE Medications Medications Current Medications Acetaminophen (Tylenol Tab) 650 mg Q4H PRN PO PAIN AND OR ELEVATED TEMP; Start 08/08/17 at 11:30 Enoxaparin Sodium (Lovenox) 40 mg DAILY SC ; Start 08/08/17 at 21:00 Aspirin (Aspirin) 325 mg DAILY PO Last administered on 08/09/17 09:00; Admin Dose 325 MG; Start 08/09/17 at 09:00 Metronidazole (Flagyl) 500 mg Q8 PO Last administered on 08/09/17 06:21; Admin Dose 500 MG; Start 08/08/17 at 22:00 Amlodipine Besylate (Norvasc) 10 mg DAILY PO Last administered on 08/09/17 11: 28; Admin Dose 10 MG; Start 08/09/17 at 09:00 Clonazepam (Klonopin) 1 mg BID PRN PO ANXIETY Last administered on 08/09/17 11 :25; Admin Dose 1 MG; Start 08/08/17 at 19:00 Gabapentin (Neurontin) 1,200 mg TID PO Last administered on 08/09/17 11:27; Admin Dose 1,200 MG; Start 08/08/17 at 21:00 Venlafaxine HCl (Effexor Xr) 150 mg QAM PO Last administered on 08/09/17 11:27 ; Admin Dose 150 MG; Start 08/09/17 at 09:00 Morphine Sulfate (morphine) 2 mg Q4H PRN IV PAIN LEVEL 4-6 Last administered on 08/09/17 11:24; Admin Dose 2 MG; Start 08/08/17 at 19:00 Oxycodone/ Acetaminophen (Percocet (5/ 325)) 1 tab Q4H PRN PO PAIN Last administered on 08/09/17 02:27; Admin Dose 1 TAB; Start 08/08/17 at 22:00 RON SANCHEZ Aug 09, 2017 14:11
--- NOTE | 2017-08-09 14:35 | RADRPT ---
Echocardiogram Report Patient Name: ASHWINI CHONG Gender: Female Date: 1960 Study Date: 09-Aug-2017 Platform Material Handling Supervisor: Sis Carrero [facility] Location: 609 Ref. Physician: VINAY HUERTA Quality: Good Procedures: Transthoracic echocardiogram with complete 2D, M-Mode, and doppler examination. Indications: Chest Pain. 2D/M Mode Doppler Measurement Value Normal Ranges Measurement Value Normal Ranges LVIDd 2D 4.4 3.5 - 5.6 cm AV Peak Reji 1.5 m/sec LVIDs 2D 1.8 2.1 - 4.1 cm AV Peak PG 8.5 mmHg LVPWd 2D 0.8 0.6 - 1.1 cm LVOT Peak Reji 1.2 m/sec IVSd 2D 0.8 0.6 - 1.1 cm LVOT Peak PG 5.4 mmHg AoR Diam 2D 2.6 2.0 - 3.7 cm MV E Peak Reji 0.7 m/sec EDV 2D 86.2 cm3 MV A Peak Reji 0.7 m/sec ESV 2D 5.9 cm3 MV E/A 0.9 LA Dimen 2D 3.9 2.3 - 4.0 cm MV Decel Time 142 msec MV Decel Moore 5 MV E/A 0.9 Findings Left Ventricle: Normal left ventricular systolic function. Normal left ventricular cavity size. Normal left ventricular wall thickness. Ejection fraction is visually estimated at 60 %. Tissue Doppler/Mitral Doppler indices are consistent with impaired relaxation (Stage I diastolic dysfunction). Right Ventricle: Normal right ventricular size. Normal right ventricular systolic function. Left Atrium: The left atrium is normal in size. Right Atrium: The right atrium is normal in size. Mitral Valve: Normal appearance of the mitral valve. Mild mitral annular calcification. Trace mitral regurgitation. Aortic Valve: Normal appearance of the aortic valve. No significant aortic stenosis or insufficiency. Tricuspid Valve: Normal appearance of the tricuspid valve. Unable to obtain RVSP due to minimal presence of tricuspid regurgitation. Pulmonic Valve: Normal pulmonic valve appearance. Pericardium: Normal pericardium with no significant pericardial effusion. Aorta: Normal aortic root. IVC: Normal size and normal respiratory collapse consistent with normal right atrial pressure. Conclusions 1.Normal left ventricular systolic function. Normal left ventricular cavity size. Normal left ventricular wall thickness. Ejection fraction is visually estimated at 60 %. Tissue Doppler/Mitral Doppler indices are consistent with impaired relaxation (Stage I diastolic dysfunction). 2.Normal appearance of the mitral valve. Mild mitral annular calcification. Trace mitral regurgitation. 3.Normal appearance of the tricuspid valve. Unable to obtain RVSP due to minimal presence of tricuspid regurgitation. Electronically Signed By: Dany Guajardo 09-Aug-2017 14:34:58 -0800 Patient Name: ASHWINI CHONG Study Date: 09-Aug-2017 [id number]
[2017-08-09 14:56] VITALS: BP 135/75; RESP 18
[2017-08-09 15:04] LABS: BASOPHILS % 0.5 % (0.0-2.0); EOSINOPHILS # 0.2 10^3/ul (0.0-0.5); EOSINOPHILS % 2.7 % (0.0-7.0); HEMATOCRIT 29.5 % (37.0-47.0); HEMOGLOBIN 10.1 g/dl (12.0-16.0); LYMPHOCYTES % 31.8 % (15.0-51.0); MEAN CORPUSCULAR HEMOGLOBIN 34.5 pg (29.0-33.0); MEAN CORPUSCULAR HGB CONC 34.2 g/dl (32.0-37.0); MEAN CORPUSCULAR VOLUME 100.7 fl (82.0-101.0); MEAN PLATELET VOLUME 10.3 fl (7.4-10.4); MONOCYTE # 0.4 10^3/ul (0.3-0.9); MONOCYTES % 5.6 % (0.0-11.0); NEUTROPHIL # 3.7 10^3/ul (1.6-7.5); NEUTROPHILS % 59.2 % (39.0-77.0); PLATELET COUNT 132 10^3/UL (140-415); RED BLOOD COUNT 2.93 10^6/ul (4.20-5.40); RED CELL DISTRIBUTION WIDTH 13.3 % (11.5-14.5); WHITE BLOOD COUNT 6.2 10^3/ul (4.8-10.8)
[2017-08-09 15:26] LABS: ALBUMIN 3.2 g/dl (3.3-4.9); ALBUMIN/GLOBULIN RATIO 1.33; CALCIUM 8.1 mg/dl (8.4-10.2); CREATININE 0.93 mg/dl (0.44-1.00); TOTAL PROTEIN 5.6 g/dl (6.1-8.1)
[2017-08-09 16:41] LABS: POTASSIUM 4.8 mmol/L (3.5-5.1)
--- NOTE | 2017-08-09 16:59 | RADRPT ---
PROCEDURE: US upper extremity Venous. CLINICAL INDICATION: Upper extremity swelling TECHNIQUE: Multiple sonographic images of the right upper extremity venous system was obtained uti lizing johns scale, color-flow, compressive sonography and doppler imaging with augmentation. COMPARISON: None FINDINGS: There is normal compressibility, phasicity and flow demonstrated within the right internal jugular v ein, subclavian vein, axillary vein and brachial vein. Normal compressibility of the basilic and cep halic veins. IMPRESSION: No sonographic evidence for right upper extremity venous thrombosis. RPTAT:AAJJ Physician Reggie Date Time Electronically viewed and signed by Physician Reggie on 08/09/2017 16:58 /
--- NOTE | 2017-08-09 17:27 | RADRPT ---
PROCEDURE: US Pelvis. CLINICAL INDICATION: Pelvic pain TECHNIQUE: Transabdominal and transvaginal pelvic ultrasound are performed. COMPARISON: None. FINDINGS: The uterus is heterogeneous in echogenicity and anteverted in orientation. The uterus measures 6.1 x 4.2 x 5.6 cm. Previously seen anterior fundal fibroid is not well visualized on the current exami nation. There is trace fluid in the endometrial canal. The endometrial lining itself is uniformly th in measuring 1.7 mm and 2.2 mm. Cervix is normal in appearance. Neither ovary is identified. There are no obvious adnexal masses. There is no free fluid in the pelvis IMPRESSION: 1. Heterogeneous appearance to the uterus is suggestive of multiple small fibroids.. 2. The previously noted dominant fundal fibroid is not well seen on the current study. 3. Trace fluid/blood in the endometrial canal. The visualized portions of the endometrial lining ar e thin. 4. Neither ovary identified. There are no obvious adnexal masses. 5. No free fluid in the pelvis RPTAT: HH .Hebert Burger MD, Date Time Electronically viewed and signed by .Hebert Burger MD, on 08/09/2017 17:26 .W/
[2017-08-09 19:56] VITALS: BP 142/81; RESP 18
[2017-08-10 02:19] VITALS: BP 132/78; RESP 18
[2017-08-10] MEDS: metroNIDAZOLE 500 MG TAB PO SCH ×3 (06:16→21:05)
[2017-08-10 08:10] VITALS: BP 140/94; RESP 16
[2017-08-10 08:43] LABS: BASOPHILS % 0.5 % (0.0-2.0); EOSINOPHILS # 0.2 10^3/ul (0.0-0.5); EOSINOPHILS % 3.6 % (0.0-7.0); HEMATOCRIT 34.3 % (37.0-47.0); HEMOGLOBIN 11.6 g/dl (12.0-16.0); LYMPHOCYTES # 1.9 10^3/ul (0.8-2.9); LYMPHOCYTES % 31.5 % (15.0-51.0); MEAN CORPUSCULAR HEMOGLOBIN 33.5 pg (29.0-33.0); MEAN CORPUSCULAR HGB CONC 33.8 g/dl (32.0-37.0); MEAN CORPUSCULAR VOLUME 99.1 fl (82.0-101.0); MEAN PLATELET VOLUME 11.2 fl (7.4-10.4); MONOCYTE # 0.4 10^3/ul (0.3-0.9); MONOCYTES % 6.3 % (0.0-11.0); NEUTROPHIL # 3.6 10^3/ul (1.6-7.5); NEUTROPHILS % 57.9 % (39.0-77.0); PLATELET COUNT 131 10^3/UL (140-415); RED BLOOD COUNT 3.46 10^6/ul (4.20-5.40); RED CELL DISTRIBUTION WIDTH 13.1 % (11.5-14.5); WHITE BLOOD COUNT 6.2 10^3/ul (4.8-10.8)
[2017-08-10] MEDS: ENOXAPARIN 40 MG/0.4 ML SYG SC SCH (09:00)
[2017-08-10] MEDS ORDERED: PHENTERMINE HCL 37.5 MG PO SCH (09:00)
[2017-08-10 09:06] LABS: ALBUMIN 3.5 g/dl (3.3-4.9); ALBUMIN/GLOBULIN RATIO 1.16; BILIRUBIN,INDIRECT 0.2 mg/dl (0-1.1); BILIRUBIN,TOTAL 0.2 mg/dl (0.2-1.3); CALCIUM 9.1 mg/dl (8.4-10.2); CREATININE 0.68 mg/dl (0.44-1.00); POTASSIUM 5.8 mmol/L (3.5-5.1); TOTAL PROTEIN 6.5 g/dl (6.1-8.1)
[2017-08-10] MEDS: ASPIRIN 325 MG TAB PO SCH (09:14)
[2017-08-10] MEDS: AMLODIPINE 5 MG TAB PO SCH (09:14)
[2017-08-10] MEDS: LACTOBACILLUS RHAMNOSUS CAP PO SCH ×3 (09:14→18:42)
[2017-08-10] MEDS: VENLAFAXINE (XR) 75 MG CAP PO SCH (09:14)
[2017-08-10] MEDS: GABAPENTIN 400 MG CAP PO SCH ×3 (09:14→21:04)
[2017-08-10 09:24] VITALS: BP 147/90; PULSE 72
[2017-08-10] MEDS: clonAZEPAM 0.5 MG TAB PO PRN ×2 (09:27→16:51)
[2017-08-10] MEDS: morphine 2 MG INJ IV PRN ×4 (09:28→22:50)
[2017-08-10] MEDS ORDERED: CEPASTAT LOZENGE MT PRN (14:00)
[2017-08-10] MEDS ORDERED: ARTIFICIAL TEARS 15 ML OPH BOTH EYES PRN (14:00)
[2017-08-10 14:21] VITALS: BP 145/83; RESP 16
--- NOTE | 2017-08-10 14:29 | PN ---
Date/Time of Note Date/Time of Note DATE: 08/10/17 TIME: 14:19 Assessment/Plan VTE Prophylaxis VTE Prophylaxis Intervention: ambulation, SCD's Lines/Catheters IV Catheter Type (from Nrsg): Mid Line Urinary Cath still in place: No Assessment/Plan Chief Complaint/Hosp Course s: 12.4 still states has spotting in the vaginal area, right arm swollen, willing to get US today 12.5 no chest pain, has random R hand pain beginning yesterday o: Physical exam General: Patient is laying in bed and answers questions appropriately Mentation: Patient is alert and oriented 4, Head: Normocephalic atraumatic Eyes: EOMI, pupils reactive to light Neck: Supple, nontender, midline Respiratory: Clear to auscultation bilaterally Cardiovascular: regular rate, no obvious murmurs Gastrointestinal: non-tender to palpation, bowel sounds heard. 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 -no complaints of diarrhea, will stop metronidazole - start on probiotics Lower back pain - Chronic - Pain medication for relief - If no improvement may need pain consultation HTN - BP low and will start home meds with holding parameters ROWAN - resolved, pre-renal - monitor Anxiety/depression - continue home medications - Klonopin - Effexor Disposition - spoke with [facility], faxed clinicals, pending transfer -pending hand xray results Problems: Exam/Review of Systems Vital Signs Vitals Vital Signs Date Time Temp Pulse Resp B/P Pulse Ox O2 Delivery O2 Flow Rate FiO2 08/10/17 09:24 72 147/90 08/10/17 08:10 98.2 16 98 Intake and Output 1208/09/17 08/10/17 15:00 23:00 07:00 Intake Total 850 ml 500 ml Balance 850 ml 500 ml Results Result Diagram: 08/10/17 0802 08/10/17 1238 Results 24 hrs Laboratory Tests Test 08/09/17 14:50 08/10/17 08:02 08/10/17 12:38 White Blood Count 6.2 # 6.2 Red Blood Count 2.93 L 3.46 L Hemoglobin 10.1 L 11.6 L Hematocrit 29.5 L 34.3 L Mean Corpuscular Volume 100.7 99.1 Mean Corpuscular Hemoglobin 34.5 H 33.5 H Mean Corpuscular Hemoglobin Concent 34.2 33.8 Red Cell Distribution Width 13.3 13.1 Platelet Count 132 #L 131 L Mean Platelet Volume 10.3 11.2 H Neutrophils % 59.2 57.9 Lymphocytes % 31.8 31.5 Monocytes % 5.6 6.3 Eosinophils % 2.7 3.6 Basophils % 0.5 0.5 Nucleated Red Blood Cells % 0.0 0.0 Neutrophils # 3.7 3.6 Lymphocytes # 2.0 1.9 Monocytes # 0.4 0.4 Eosinophils # 0.2 0.2 Basophils # 0.0 0.0 Nucleated Red Blood Cells # 0.0 0.0 Sodium Level 141 140 Potassium Level 4.8 5.8 H 4.3 Chloride Level 108 108 Carbon Dioxide Level 29 25 Anion Gap 9 # 13 Blood Urea Nitrogen 19 16 Creatinine 0.93 0.68 Glucose Level 85 93 Calcium Level 8.1 L 9.1 Total Bilirubin 0.0 L 0.2 Direct Bilirubin 0.00 0.00 Indirect Bilirubin 0.0 0.2 Aspartate Amino Transf (AST/SGOT) 24 38 Alanine Aminotransferase (ALT/SGPT) 36 32 Alkaline Phosphatase 46 46 Troponin I < 0.012 Total Protein 5.6 #L 6.5 Albumin 3.2 L 3.5 Globulin 2.40 3.00 Albumin/Globulin Ratio 1.33 1.16 Magnesium Level 1.9 Medications Medications Current Medications Acetaminophen (Tylenol Tab) 650 mg Q4H PRN PO PAIN AND OR ELEVATED TEMP; Start 08/08/17 at 11:30 Enoxaparin Sodium (Lovenox) 40 mg DAILY SC ; Start 08/08/17 at 21:00 Aspirin (Aspirin) 325 mg DAILY PO Last administered on 08/10/17 09:14; Admin Dose 325 MG; Start 08/09/17 at 09:00 Metronidazole (Flagyl) 500 mg Q8 PO Last administered on 08/10/17 14:00; Admin Dose 500 MG; Start 08/08/17 at 22:00 Amlodipine Besylate (Norvasc) 10 mg DAILY PO Last administered on 08/10/17 09: 14; Admin Dose 10 MG; Start 08/09/17 at 09:00 Clonazepam (Klonopin) 1 mg BID PRN PO ANXIETY Last administered on 08/10/17 09 :27; Admin Dose 1 MG; Start 08/08/17 at 19:00 Gabapentin (Neurontin) 1,200 mg TID PO Last administered on 08/10/17 12:59; Admin Dose 1,200 MG; Start 08/08/17 at 21:00 Venlafaxine HCl (Effexor Xr) 150 mg QAM PO Last administered on 08/10/17 09:14 ; Admin Dose 150 MG; Start 08/09/17 at 09:00 Morphine Sulfate (morphine) 2 mg Q4H PRN IV PAIN LEVEL 4-6 Last administered on 08/10/17 14:01; Admin Dose 2 MG; Start 08/08/17 at 19:00 Oxycodone/ Acetaminophen (Percocet (5/ 325)) 1 tab Q4H PRN PO PAIN Last administered on 08/09/17 14:24; Admin Dose 1 TAB; Start 08/08/17 at 22:00 Eye Lubricant (Artificial Tears Oph) 2 drop Q6H PRN BOTH EYES DRY EYES; Start 08/10/17 at 14:00 Phenol (Cepastat Lozenge) 1 lozenge Q2 PRN MT sore throat; Start 08/10/17 at 14 :00 RON SANCHEZ Aug 10, 2017 14:29
--- NOTE | 2017-08-10 14:38 | RADRPT ---
Vent Rate: 64 bpm RR Interval: 0 msec ME Interval: 148 msec QRS Duration: 86 msec QT Interval: 432 msec QTC Interval: 445 msec P-R-T [place]: 51 - 43 - 57 degrees Normal sinus rhythm Normal ECG Electronically Signed By: Kan Milton [id number]
--- NOTE | 2017-08-10 15:02 | RADRPT ---
PROCEDURE: XR Hand. CLINICAL INDICATION: Right hand pain. TECHNIQUE: Three views. Frontal, lateral, and oblique images of the right hand were obtained. COMPARISON: No prior studies are available for comparison. FINDINGS: There is no fracture or dislocation. There is soft tissue swelling posteriorly overlying the metacarpals. Articular surfaces are intact. There is no lytic or blastic lesion. There is no radiopaque foreign body. IMPRESSION: 1. Soft tissue swelling posteriorly overlying the metacarpals. 2. Otherwise unremarkable images of the right hand. RPTAT: QQ .Thomas Neff MD, MD Date Time Electronically viewed and signed by .Thomas Neff MD, on 08/10/2017 15:02 .R/
[2017-08-10] MEDS ORDERED: SOD CHLORIDE 0.9% 100 ML ONE (15:44)
[2017-08-10] MEDS ORDERED: IOHEXOL 100 ML ONE (15:44)
[2017-08-10] MEDS ORDERED: IOHEXOL 350MG/ML 50 ML BTL ONE (15:44)
[2017-08-10] MEDS: OXYCODONE/ACETAMINOPHEN (5/325) TAB PO PRN ×2 (15:45→21:05)
--- NOTE | 2017-08-10 16:29 | RADRPT ---
PROCEDURE: CT Chest Angiogram with contrast. CLINICAL INDICATION: Shortness of breath , right upper extremity swelling TECHNIQUE: CT scan of the chest with contrast was performed on a multidetector high-resolution CT scanner. The patient was scanned following the uncomplicated intravenous administration of 100 cc o f Isovue 300 contrast. Coronal and sagittal reformatted images were obtained from the axial source images. Additional 3D volumetric renderings were created. Images were reviewed on a higheCollect n PACS workstation. The total exam CTDI equals 106/20mGy and the total exam DLP equals 1194mGy-cm. O ne or more of the following dose reduction techniques were used: Automated exposure control, Adjustm ent of the mA and/or kV according to patient size, and/or use of iterative reconstruction technique. DICOM images are available. COMPARISON: None available FINDINGS: Technically adequate exam for the evaluation of the pulmonary arteries to the proximal segmental lev el. No central intraluminal filling defects are seen. The peripheral pulmonary arteries are not well evaluated due to limited peripheral pulmonary arterial contrast opacification. No definite intraluminal filling defect in the right subclavian vein, right axillary vein, right int ernal jugular vein, or superior vena cava. No focal consolidations or pulmonary mass. Coarse calcifications are seen in the region of the subsc apularis myotendinous junction (series 3 image 49). There are also multiple coarse calcification leno ng the anterior humerus near the expected course of the long head biceps tendon (se 3 image 64-90) . No mediastinal or hilar lymphadenopathy. Normal cardiac size. No pleural or pericardial effusion. No suspicious hepatic mass identified. No pancreatic ductal dilatation. Portal vein is patent. Splee n and adrenals are unremarkable. No hydronephrosis or obstructing renal stone is seen. No gross evid ence of bowel obstruction. The appendix is normal caliber. No evidence of abdominal aortic aneurysm. Degenerative changes to the spine are seen. IMPRESSION: No convincing evidence of intraluminal thrombus in the right subclavian vein, right axillary vein, right internal jugular vein, or superior vena cava. No evidence of central pulmonary embolus. The peripheral pulmonary arteries are not well evaluated due to limited peripheral pulmonary arterial contrast opacification. Coarse calcifications are seen in the region of the subscapularis myotendinous junction which may be due to calcific tendonitis. There are also multiple coarse calcification along the anterior humerus near the expected course of the long head biceps tendon which may be due to calcific tendonitis. RPTAT: AA .Guillermo Rolon MD, MD Date Time Electronically viewed and signed by .Guillermo Rolon MD, MD on 08/10/2017 16:28 .T/
--- NOTE | 2017-08-10 16:36 | RADRPT ---
PROCEDURE: CT Chest and right upper extremity Angiogram with contrast. CLINICAL INDICATION: Shortness of breath , right upper extremity swelling TECHNIQUE: CT scan of the chest and right upper extremity with contrast was performed on a multidete ctor high-resolution CT scanner. The patient was scanned following the uncomplicated intravenous adm inistration of 100 cc of Isovue 300 contrast. Coronal and sagittal reformatted images were obtained from the axial source images. Additional 3D volumetric renderings were created. Images were reviewed on a high-resolution PACS workstation. The total exam CTDI equals 106/20mGy and the total exam DLP equals 1194mGy-cm. One or more of the following dose reduction techniques were used: Automated expos ure control, Adjustment of the mA and/or kV according to patient size, and/or use of iterative recon struction technique. DICOM images are available. COMPARISON: None available FINDINGS: Technically adequate exam for the evaluation of the pulmonary arteries to the proximal segmental lev el. No central intraluminal filling defects are seen. The peripheral pulmonary arteries are not well evaluated due to limited peripheral pulmonary arterial contrast opacification. No definite intraluminal filling defect in the right subclavian vein, right axillary vein, right int ernal jugular vein, or superior vena cava. The right subclavian, axial and brachial arteries are patent. No focal consolidations or pulmonary mass. Coarse calcifications are seen in the region of the subsc apularis myotendinous junction (series 3 image 49). There are also multiple coarse calcification leno ng the anterior humerus near the expected course of the long head biceps tendon (se 3 image 64-90) . No mediastinal or hilar lymphadenopathy. Normal cardiac size. No pleural or pericardial effusion. No suspicious hepatic mass identified. No pancreatic ductal dilatation. Portal vein is patent. Splee n and adrenals are unremarkable. No hydronephrosis or obstructing renal stone is seen. No gross evid ence of bowel obstruction. The appendix is normal caliber. No evidence of abdominal aortic aneurysm. Degenerative changes to the spine are seen. IMPRESSION: No convincing evidence of intraluminal thrombus in the right subclavian vein, right axillary vein, r ight internal jugular vein, or superior vena cava. No evidence of central pulmonary embolus. The peripheral pulmonary arteries are not well evaluated d ue to limited peripheral pulmonary arterial contrast opacification. Coarse calcifications are seen in the region of the subscapularis myotendinous junction which may be due to calcific tendonitis. There are also multiple coarse calcification along the anterior humerus near the expected course of the long head biceps tendon which may be due to calcific tendonitis. RPTAT: AA Signed By: Guillermo Rolon M.d 08/10/2017 4:28:35 PM .Guillermo Rolon MD, MD Date Time Electronically viewed and signed by .Guillermo Rolon MD, MD on 08/10/2017 16:36 .T/
[2017-08-10] MEDS: DIPHENHYDRAMINE 25 MG CAP PO PRN ×2 (16:51→22:49)
[2017-08-10 20:15] VITALS: BP 131/64; RESP 18
[2017-08-11 02:33] VITALS: BP 125/80; RESP 18
[2017-08-11] MEDS: metroNIDAZOLE 500 MG TAB PO SCH ×2 (06:24→14:07)
[2017-08-11] MEDS: ENOXAPARIN 40 MG/0.4 ML SYG SC SCH (09:00)
[2017-08-11] MEDS: VENLAFAXINE (XR) 75 MG CAP PO SCH (09:58)
[2017-08-11] MEDS: LACTOBACILLUS RHAMNOSUS CAP PO SCH ×2 (09:58→12:42)
[2017-08-11] MEDS: GABAPENTIN 400 MG CAP PO SCH ×2 (09:58→12:41)
[2017-08-11] MEDS: AMLODIPINE 5 MG TAB PO SCH (09:59)
[2017-08-11] MEDS: ASPIRIN 325 MG TAB PO SCH (09:59)
[2017-08-11 10:01] VITALS: BP 156/92; PULSE 73; RESP 20
[2017-08-11] MEDS: morphine 2 MG INJ IV PRN ×2 (10:08→14:06)
[2017-08-11] MEDS: clonAZEPAM 0.5 MG TAB PO PRN ×2 (10:08→16:57)
--- NOTE | 2017-08-11 11:09 | PDOCDIS ---
Discharge Instructions CONDITION Patient Condition: Stable HOME CARE INSTRUCTIONS: Special Diet: Regular Diet FOLLOW UP/APPOINTMENTS Follow-up Plan 1. Follow up with an orthopedic surgeon for back issues including lower leg neuropathy 2. Follow up with a urologist for urge incontinence 3. Take all medications as directed 4. Stay away from amlodipine, as it may cause swelling of the arm 5. Continue all other home medications RON SANCHEZ Aug 11, 2017 11:09
[2017-08-11] MEDS ORDERED: METR500T PO (11:11)
[2017-08-11] MEDS ORDERED: LACT1CAP28 PO (11:11)
[2017-08-11] MEDS ORDERED: LOSA50TA6 PO (11:14)
[2017-08-11] MEDS ORDERED: VENL75TA2 PO (11:40)
[2017-08-11] MEDS ORDERED: CLON1TAB3 PO (11:40)
[2017-08-11] MEDS ORDERED: OXYC-279 PO (11:40)
[2017-08-11] MEDS ORDERED: VENL150C PO (11:40)
[2017-08-11] MEDS: DIPHENHYDRAMINE 25 MG CAP PO PRN (12:42)
[2017-08-11] MEDS: OXYCODONE/ACETAMINOPHEN (5/325) TAB PO PRN (12:42)
[2017-08-11 14:02] VITALS: BP 136/84; RESP 16
--- NOTE | 2017-08-11 14:27 | DS ---
Date/Time of Note Date/Time of Note DATE: 08/11/17 TIME: 14:26 Discharge Summary Admission/Discharge Info Admit Date/Time Aug 10, 2017 at 15:32 Discharge Date/Time Patient Condition: Stable Hospital Course Patient is a 56-year-old female with multiple complaints who originally was admitted for chest pain rule out, however all cardiac workup including troponins and EKG within normal limits and chest patient's chest pain resolved spontaneously. Patient also had an acute kidney injury upon admission and patient's losartan was held. Patient's acute kidney injury had resolved however patient was placed on amlodipine instead of losartan which is very likely cause of patient's developing very mild right sided upper extremity swelling. Patient will be discharged with losartan and amlodipine will be stopped. Ultrasound of the right side upper extremity as well as CT venogram of the upper extremity and chest were done which did not show any acute issues. Patient will be discharged back to [facility] with refills on her medications and with suggestions to follow-up with OB /[facility] for vaginal spotting as well as orthopedic surgery for her back issues and urology for her urological issues. Patient is to continue all other home medications and to follow-up with her primary care provider as soon as possible. Also should be of note the patient was started on metronidazole however C. difficile stool sample was never collected, however patient's diarrhea has subsided and patient will finish out course of metronidazole. Discharge diagnoses Acute chest pain, noncardiac origin, secondary to panic attack Anxiety Vaginal spotting, secondary to fibroids per ultrasound Right upper extremity swelling, secondary to amlodipine Diarrhea Chronic lower back pain Hypertension AK, resolved Mood disorder Home Meds Active Scripts Oxycodone HCl/Acetaminophen (Percocet 5-325 mg Tablet) 1 Each Tablet, 1 EACH PO BID Y for PAIN, #14 TAB Prov:RON SANCHEZ 08/11/17 Clonazepam* (Clonazepam*) 1 Mg Tablet, 1 MG PO BID Y for ANXIETY, #14 TAB Prov:RON SANCHEZ 08/11/17 Venlafaxine Hcl* (Effexor XR*) 150 Mg Cap.sr.24h, 150 MG PO QAM for 30 Days, # 30 CAP Prov:RON SANCHEZ 08/11/17 Venlafaxine Hcl* (Effexor XR*) 75 Mg Tab.er.24, 75 MG PO QAM for 30 Days, #30 TAB.SA Prov:RON SANCHEZ 08/11/17 Losartan Potassium* (Losartan Potassium*) 50 Mg Tablet, 50 MG PO DAILY, #30 TAB Prov:RON SANCHEZ 08/11/17 Lactobacillus Rhamnosus GG (Culturelle) 1 Each Capsule, 1 CAP PO WITH MEALS for 30 Days, #90 CAP Prov:RON SANCHEZ 08/11/17 Metronidazole* (Flagyl*) 500 Mg Tablet, 500 MG PO Q8 for 7 Days, #21 TAB Prov:RON SANCHEZ 08/11/17 Naproxen* (Naproxen*) 500 Mg Tablet, 500 MG PO BID, #30 TAB Prov:NEYDA HOBSON PA-C 05/02/17 Reported Medications Biotin (Biotin) 1,000 Mcg Tab.chew, 1000 MCG PO DAILY, TAB.CHEW 03/29/17 Gabapentin* (Gabapentin*) 600 Mg Tablet, 1200 MG PO TID, #180 TAB 10/09/16 Dicyclomine Hcl* (Bentyl*) 10 Mg Capsule, 10 MG PO TID Y for PRN, CAP 10/09/16 Discontinued Reported Medications Phentermine Hcl (Phentermine Hcl) 37.5 Mg Tablet, 37.5 MG PO BID, TAB 03/29/17 Tramadol Hcl* (Ultram*) 50 Mg Tablet, 150 MG PO Q12H Y for PAIN, TAB 03/29/17 Discontinued Scripts Oxycodone HCl/Acetaminophen (Percocet 5-325 mg Tablet) 1 Each Tablet, 1 EACH PO QHS, #6 TAB Prov:FERNANDO VAZQUEZ PA-C 05/07/17 Hydrocodone/Acetaminophen ([place] 10-325 Tablet) 1 Each Tablet, 1 TAB PO Q6H Y for PAIN, #20 TAB Prov:NEYDA HOBSON PA-C 05/02/17 Amlodipine Besylate* (Amlodipine Besylate*) 5 Mg Tablet, 10 MG PO DAILY for 14 Days, #14 TAB Prov:VINNIE CAMPA MD 04/01/17 Follow-up Plan 1. Follow up with an orthopedic surgeon for back issues including lower leg neuropathy 2. Follow up with a urologist for urge incontinence 3. Take all medications as directed 4. Stay away from amlodipine, as it may cause swelling of the arm 5. Continue all other home medications Primary Care Provider [facility] Time spent on discharge: > 30 minutes RON SANCHEZ Aug 11, 2017 14:27
== END 2017-08-11 17:40 | disposition home or self-care (01) | DRG 880 ==
LOC: INTOOBSV 10:30 → TEL 10:30 → MS2 19:30 → OBSVTOIN 08-10 15:32
PROVIDERS: ADMIT Internal Medicine; ATTEND Internal Medicine
DX: F41.0 Panic disorder [episodic paroxysmal anxiety] (principal); N17.9 Acute kidney failure, unspecified; R07.89 Other chest pain; N89.8 Other specified noninflammatory disorders of vagina; R19.7 Diarrhea, unspecified; M54.5 Low back pain; I10 Essential (primary) hypertension; F32.9 Major depressive disorder, single episode, unspecified; G89.29 Other chronic pain; Z91.410 Personal history of adult physical and sexual abuse; F17.210 Nicotine dependence, cigarettes, uncomplicated; M79.89 Other specified soft tissue disorders; T46.1X5A Adverse effect of calcium-channel blockers, initial encounter; Y92.239 Unspecified place in hospital as the place of occurrence of the external cause; D25.9 Leiomyoma of uterus, unspecified; F39 Unspecified mood [affective] disorder
CPT/HCPCS: 71275; 73200; 76830; 76856; 80053; 82270; 83735; 84132; 84484; 85025; 93005; 93306; 93971; G0378; J1650; J2270; J7030; Q9967

== ENCOUNTER 2018-09-20 13:06 | Inpatient (IN) | payer OTHER ==
[~2018-09-20] VITALS: Ht 172.7 cm; Wt 82.6 kg
[~2018-09-20 13:06] MED LIST changes: -AMLO-145 PO; +CLON1TAB13 PO; -CLON1TAB3 PO; +DICY10CA40 PO; -DICY10CA60 PO; -HYDR-902 PO; +LACT1CAP28 PO; +LOSA50TA14 PO; +METR500T PO; -PHEN37.53 PO; -TRAM-40 PO
[2018-09-20 14:00] VITALS: BP 138/86; PULSE 85; RESP 18; Ht 172.7 cm; Wt 82.6 kg
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
[2018-09-20] MEDS ORDERED: hydrALAzine 20 MG INJ IV PRN (16:30)
[2018-09-20] MEDS ORDERED: NITROGLYCERIN (SL) 0.4 MG TAB SL PRN (16:30)
[2018-09-20] MEDS: SOD CHLORIDE 0.45% 1,000 ML IV SCH (16:30)
[2018-09-20] MEDS ORDERED: DOCUSATE SODIUM 100 MG CAP PO PRN (16:30)
[2018-09-20] MEDS ORDERED: ALBUTEROL/IPRATROPIUM (NEB) 3 ML AMP HHN PRN (16:30)
[2018-09-20] MEDS: THIAMINE 100 MG TAB PO SCH ×3 (16:30→19:04)
[2018-09-20] MEDS ORDERED: MAGNESIUM HYDROXIDE 30ML CUP PO PRN (16:30)
[2018-09-20] MEDS ORDERED: NACL 0.9% 3 ML SYG IV SCH (16:30)
[2018-09-20] MEDS ORDERED: ONDANSETRON 4 MG INJ IV PRN (16:30)
[2018-09-20] MEDS: MULTIVITAMINS 10 ML, FOLIC ACID 1 MG in SOD CHLORIDE 0.9% 1,000 ML IVPB SCH (18:59)
[2018-09-20] MEDS: LORAZEPAM 2 MG INJ IV PRN ×3 (19:09→23:13)
[2018-09-20 19:26] VITALS: BP 147/85; PULSE 88; RESP 18
[2018-09-20] MEDS: CHLORDIAZEPOXIDE 25 MG CAP PO SCH (20:24)
[2018-09-20] MEDS ORDERED: HEPARIN 5,000 UNIT/1 ML VIAL SC SCH (21:00)
[2018-09-20] MEDS: ACETAMINOPHEN 325 MG TAB PO PRN (22:41)
[2018-09-21 02:45] VITALS: BP 133/79; PULSE 93; RESP 18
[2018-09-21] MEDS: SOD CHLORIDE 0.45% 1,000 ML IV SCH ×2 (05:50→19:10)
[2018-09-21] MEDS: HYDROCODONE/APAP (5/325) TAB PO PRN ×2 (05:58→16:21)
[2018-09-21] MEDS: LORAZEPAM 2 MG INJ IV PRN ×4 (07:00→23:57)
[2018-09-21 07:55] VITALS: BP 155/85; PULSE 92; RESP 16
[2018-09-21] MEDS: CHLORDIAZEPOXIDE 25 MG CAP PO SCH ×3 (08:21→21:43)
[2018-09-21] MEDS: morphine SULFATE/PF (2 MG/2 ML) SYG IV PRN ×3 (08:21→21:49)
[2018-09-21] MEDS: NICOTINE (21 MG/24 HR) PATCH TRANSDERM SCH (08:22)
[2018-09-21] MEDS: MULTIVITAMINS 10 ML, FOLIC ACID 1 MG in SOD CHLORIDE 0.9% 1,000 ML IVPB SCH (08:22)
[2018-09-21] MEDS: THIAMINE 100 MG TAB PO SCH (08:22)
[2018-09-21] MEDS ORDERED: INFLUENZA VIRUS VACCINE 0.5 ML (DISPENSING) IM* ONE (10:00)
[2018-09-21] MEDS ORDERED: LORA1TAB PO (11:18)
[2018-09-21] MEDS ORDERED: TRA100 PO (11:20)
[2018-09-21 14:29] VITALS: BP 121/61; PULSE 77; RESP 16
--- NOTE | 2018-09-21 14:29 | PN ---
Date/Time of Note Date/Time of Note DATE: 09/21/18 TIME: 14:25 Assessment/Plan VTE Prophylaxis Risk score (from Ns)>0 risk: 2 SCD applied (from Ns): Yes Pharmacological prophylaxis: other Lines/Catheters IV Catheter Type (from [facility]): Peripheral IV Urinary Cath still in place: No Assessment/Plan Hospital Course S: Patient seen by physical therapy occupational therapy teams. Denies any numbness or tingling or weakness on her lower extremities. MRI L and T-spine results reviewed. Otherwise no acute events overnight. O: VS - see below PE: General: Lying in bed HEENT: Clear oropharynx, moist mucous membranes. Neck: No lymphadenopathy Chest: Nontender Lungs: Clear to auscultation bilaterally no crackles rales or wheezing Heart: S1, S2 heard Abdomen: Soft , nontender, nondistended , Extremities: Normal to inspection, no edema no cyanosis Neurologic: No focal deficits, gait not assessed, sensation bilateral upper and lower extremities intact MRI L-spine: IMPRESSION: 1. Acute/recent fracture of the L4 vertebral body with approximately 40% height loss and 2 mm of posterior-superior retropulsion . 2. Acute/recent fracture of the superior L3 endplate with approximately 10% height loss and no retropulsion. 3. Interval chronic increased height loss of the L1 vertebral body measuring approximately 40% and previously measuring 35%. Interval 1.5 mm of posterior- superior retropulsion to the right of midline. 4. L2-L3: Mild right lateral recess narrowing, mild central canal stenosis, mild right foraminal narrowing . This level is unchanged. 5. L3-L4: Interval increased disc height secondary to fracture of the L4 vertebral body . Mild central canal stenosis, left lateral recess narrowing, and mild to moderate bilateral foraminal narrowing . 6. L4-5: Mild central canal stenosis, mild right foraminal narrowing. 7. L5-S1: Mild right foraminal narrowing. MRI T-spine: IMPRESSION: 1. No acute fracture or post traumatic subluxation. 2. Stable remote compression fracture of the superior L1 vertebral body with 35% height loss and no retropulsion. 3. Mild degenerative changes of the superior T12 endplate. 4. Small disc bulges at the T2-3, T6-T7, and T7-T8 levels. Assessment and plan: 57-year-old female who presents with questionable complaints of rectal bleeding along with low back pain with findings of L4 and L1 fractures. #Lower GI bleeding: Again no apparent acute GI findings found on CT scan report that patient had performed at outside hospital. Hemoglobin stable. No signs of any current upper or lower GI bleeding -Monitor for now, If there are any abnormalities we will get GI consult at that time. -For now hold all anticoagulants, follow-up TSH A1c lipid panel #Low back pain with lumbar fracture: Again CT scan does not specify if this is acute versus age-indeterminate fractures at L1 and L4. MRI L and T-spine results noted here. -Given MRI L-spine findings, will go ahead and continue neuro checks and obtain neurosurgery consult. E -Continue PT, OT #Homelessness: Follow-up social work consult #Alcohol use: Counseled on cessation, monitor for signs of withdrawal,banana bag, low-dose Librium, Ativan as needed #PTSD: Ativan as needed, monitor #Hypertension: Blood pressure stable, hydralazine as needed Result Diagram: 09/21/18 0835 09/21/18 0835 Results 24hrs Laboratory Tests Test 09/20/18 17:12 09/20/18 23:30 09/21/18 08:35 Prothrombin Time 12.6 Prothrombin Time Ratio 1.0 INR International 0.93 Normalized Ratio Activated Partial Thromboplast 28.0 Time Free Thyroxine 0.98 Urine Color YELLOW Urine Clarity SLIGHTLY CLOUDY A Urine pH 6.0 Urine Specific [place] 1.025 Urine Ketones NEGATIVE Urine Nitrite NEGATIVE Urine Bilirubin NEGATIVE Urine Urobilinogen 2+ H Urine Leukocyte Esterase NEGATIVE Urine Microscopic RBC 1 Urine Microscopic WBC 3 Urine Squamous FEW Epithelial Cells Urine Mucus FEW A Urine Hemoglobin NEGATIVE Urine Glucose NEGATIVE Urine Total Protein NEGATIVE White Blood Count 9.1 # Red Blood Count 3.35 L Hemoglobin 11.7 L Hematocrit 33.9 L Mean Corpuscular Volume 101.2 H Mean Corpuscular Hemoglobin 34.9 H Mean Corpuscular 34.5 Hemoglobin Concent Red Cell Distribution Width 12.7 Platelet Count 178 # Mean Platelet Volume 9.5 Immature Granulocytes % 0.200 Neutrophils % 62.0 Lymphocytes % 29.2 Monocytes % 8.3 Eosinophils % 0.0 Basophils % 0.3 Nucleated Red Blood Cells % 0.0 Immature Granulocytes # 0.020 Neutrophils # 5.6 Lymphocytes # 2.7 Monocytes # 0.8 Eosinophils # 0.0 Basophils # 0.0 Nucleated Red Blood Cells # 0.0 Sodium Level 142 Potassium Level 3.3 L Chloride Level 106 Carbon Dioxide Level 23 Anion Gap 13 Blood Urea Nitrogen 23 H Creatinine 0.60 Est Glomerular Filtrat > 60 Rate mL/min Glucose Level 115 Hemoglobin A1c 5.0 Calcium Level 9.1 Phosphorus Level 3.7 Magnesium Level 1.8 Triglycerides Level 178 H Cholesterol Level 197 LDL Cholesterol, Calculated 129 HDL Cholesterol 32 L Cholesterol/HDL Ratio 6.1 Thyroid Stimulating 3.450 Hormone (TSH) Exam/Review of Systems Vital Signs Vitals Vital Signs Date Temp Pulse Resp B/P (MAP) Pulse Ox O2 O2 Flow FiO2 Time Delivery Rate 09/21/18 98.5 92 16 155/85 98 07:55 (108) 09/20/18 Room Air 14:00 Intake and Output 09/20/18 09/20/18 09/21/18 1515:00 23:00 07:00 IntakeIntake Total 240 ml BalanceBalance 240 ml Medications Medications Current Medications IV Flush (NS 3 ml) 3 ml PER PROTOCOL IV ; Start 09/20/18 at 16:30 Ondansetron HCl (Zofran Inj) 4 mg Q6H PRN IV NAUSEA AND/OR VOMITING; Start 09/20/18 at 16:30 Acetaminophen (Tylenol Tab) 650 mg Q6H PRN PO PAIN LEVEL 1-3 OR FEVER Last administered on 09/20/18at 22:41; Admin Dose 650 MG; Start 09/20/18 at 16:30 Acetaminophen/ Hydrocodone Bitart ([place] (5/325)) 1 tab Q6H PRN PO MODERATE PAIN LEVEL 4-6 Last administered on 09/21/18at 05:58; Admin Dose 1 TAB; Start at 16:30 Morphine Sulfate (morphine SULFATE (PF)) 2 mg Q4H PRN IV SEVERE PAIN LEVEL 7-10 Last administered on 09/21/18at 12:49; Admin Dose 2 MG; Start 09/20/18 at 16:30 Docusate Sodium (Colace) 100 mg Q12H PRN PO CONSTIPATION; Start 09/20/18 at 16:30 Magnesium Hydroxide (Milk Of Mag) 30 ml DAILY PRN PO CONSTIPATION; Start 09/20/18 at 16:30 Sodium Chloride 1,000 ml @ 75 mls/hr [id number] IV ; Start 09/20/18 at 16:30 Albuterol/ Ipratropium (Duoneb) 3 ml Q4H RESP THERAPY PRN HHN SHORTNESS OF BREATH; Start 09/20/18 at 16:30 Hydralazine HCl (Apresoline) 10 mg Q6H PRN IV SBP GREATER THAN 180; Start 09/20/18 at 16:30 Nitroglycerin (Nitroglycerin (Sl Tab) 0.4 Mg) 1 tab Q5M PRN SL ANGINA; Start 09/20/18 at 16:30 Multivitamins 10 ml/Folic Acid 1 mg/Sodium Chloride 1,010.2 ml @ 125 mls/ hr DAILY@09 IVPB Last administered on 09/21/18at 08:22; Admin Dose 125 MLS/HR; Start 09/20/18 at 17:30 Chlordiazepoxide (Librium) 25 mg TID PO Last administered on 09/21/18at 13:19; Admin Dose 25 MG; Start 09/20/18 at 21:00 Thiamine HCl (Vitamin B1) 100 mg DAILY PO Last administered on 09/21/18at 08:22; Admin Dose 100 MG; Start 09/20/18 at 16:30 Nicotine (Nicoderm 21 Mg/ 24hr) 1 patch DAILY TRANSDERM Last administered on 09/21/18at 08:22; Admin Dose 1 PATCH; Start 09/21/18 at 09:00 Lorazepam (Ativan) 0.5 mg Q6H PRN IV CONTROL WITHDRAWAL SYMPTOMS; Start 09/21/18 at 16:30; Status KIMBERLI SILVA Sep 21, 2018 14:29
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
[2018-09-21 20:00] VITALS: BP 182/87; PULSE 73; RESP 18
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
[2018-09-21] MEDS: VENLAFAXINE 75 MG TABLET PO SCH (21:00)
[2018-09-21] MEDS: GABAPENTIN 400 MG CAP PO SCH (21:43)
[2018-09-22] VITALS (7 sets, daily range): BP systolic 119–166; BP diastolic 69–100; PULSE 68–73; RESP 18–20
[2018-09-22] MEDS: morphine SULFATE/PF (2 MG/2 ML) SYG IV PRN ×4 (01:58→21:08)
[2018-09-22] MEDS: LORAZEPAM 2 MG INJ IV PRN ×3 (07:35→19:56)
[2018-09-22] MEDS: SOD CHLORIDE 0.45% 1,000 ML IV SCH (08:26)
[2018-09-22] MEDS: NICOTINE (21 MG/24 HR) PATCH TRANSDERM SCH (08:40)
[2018-09-22] MEDS: CHLORDIAZEPOXIDE 25 MG CAP PO SCH ×3 (08:41→21:07)
[2018-09-22] MEDS: GABAPENTIN 400 MG CAP PO SCH ×3 (08:41→21:07)
[2018-09-22] MEDS: VENLAFAXINE 75 MG TABLET PO SCH ×3 (08:41→21:07)
[2018-09-22] MEDS: THIAMINE 100 MG TAB PO SCH (08:41)
[2018-09-22] MEDS: MULTIVITAMINS 10 ML, FOLIC ACID 1 MG in SOD CHLORIDE 0.9% 1,000 ML IVPB SCH (08:52)
[2018-09-22] MEDS: HYDROCODONE/APAP (5/325) TAB PO PRN ×2 (11:43→17:46)
[2018-09-22] MEDS: ACETAMINOPHEN 325 MG TAB PO PRN (14:05)
[2018-09-22] MEDS ORDERED: POTASSIUM CHLORIDE (SR) 20 MEQ TAB PO STA (14:13)
--- NOTE | 2018-09-22 14:27 | PN ---
Date/Time of Note Date/Time of Note DATE: 09/22/18 TIME: 14:22 Assessment/Plan VTE Prophylaxis Risk score (from Ns)>0 risk: 1 SCD applied (from Nsg): Yes Pharmacological prophylaxis: other Lines/Catheters IV Catheter Type (from Nrsg): Mid Line Urinary Cath still in place: No Assessment/Plan Hospital Course S: Patient worked with physical therapy. Still complaining of some pain symp toms. Met with social media marketing specialist earlier and is presently meeting with them again now. Scans were evaluated by neurosurgery team who recommended TLSO brace which has been ordered and is pending now. O: VS - see below PE: General: Lying in bed HEENT: Clear oropharynx, moist mucous membranes. Neck: No lymphadenopathy Chest: Nontender Lungs: Clear to auscultation bilaterally no crackles rales or wheezing Heart: S1, S2 heard Abdomen: Soft , nontender, nondistended , Extremities: Normal to inspection, no edema no cyanosis Neurologic: No focal deficits, gait not assessed, sensation bilateral upper and lower extremities intact MRI L-spine: IMPRESSION: 1. Acute/recent fracture of the L4 vertebral body with approximately 40% height loss and 2 mm of posterior-superior retropulsion . 2. Acute/recent fracture of the superior L3 endplate with approximately 10% height loss and no retropulsion. 3. Interval chronic increased height loss of the L1 vertebral body measuring approximately 40% and previously measuring 35%. Interval 1.5 mm of posterior- superior retropulsion to the right of midline. 4. L2-L3: Mild right lateral recess narrowing, mild central canal stenosis, mild right foraminal narrowing . This level is unchanged. 5. L3-L4: Interval increased disc height secondary to fracture of the L4 vertebral body . Mild central canal stenosis, left lateral recess narrowing, and mild to moderate bilateral foraminal narrowing . 6. L4-5: Mild central canal stenosis, mild right foraminal narrowing. 7. L5-S1: Mild right foraminal narrowing. MRI T-spine: IMPRESSION: 1. No acute fracture or post traumatic subluxation. 2. Stable remote compression fracture of the superior L1 vertebral body with 35% height loss and no retropulsion. 3. Mild degenerative changes of the superior T12 endplate. 4. Small disc bulges at the T2-3, T6-T7, and T7-T8 levels. Assessment and plan: 57-year-old female who presents with questionable complaints of rectal bleeding along with low back pain with findings of L4 and L1 fractures. #Lower GI bleeding: Again no apparent acute GI findings found on CT scan report that patient had performed at outside hospital. Hemoglobin stable. No signs of any current upper or lower GI bleeding. -Monitor for now, appears to be stable at this point #Low back pain with lumbar fracture: Again CT scan does not specify if this is acute versus age-indeterminate fractures at L1 and L4. MRI L and T-spine results noted here. -Given MRI L-spine findings, neurosurgery team recommending, again, TLSO brace which has been ordered. We will administer this to patient's once it arrives. -Continue PT, OT #Homelessness: Follow-up social work consult -Per discussion with social media marketing specialist today they spoke with patient's director case after outpatient facility, she has options for a specific halfway already in place. #Alcohol use: Counseled on cessation, continue Librium for now we will taper this down as well, continue tablets of multivitamin, folic acid, thiamine #PTSD: Evaluated by psychiatry team, continue current antianxiety medications and depressants as ordered by them #Hypertension: Blood pressure stable, hydralazine as needed Dispo: Likely back to the halfway in 24 hours once TLSO brace has been delivered. Result Diagram: 09/22/18 0541 09/22/18 0541 Results 24hrs Laboratory Tests Test 09/22/18 05:41 White Blood Count 8.0 Red Blood Count 3.57 L Hemoglobin 12.4 Hematocrit 36.2 L Mean Corpuscular Volume 101.4 H Mean Corpuscular Hemoglobin 34.7 H Mean Corpuscular Hemoglobin Concent 34.3 Red Cell Distribution Width 12.5 Platelet Count 176 Mean Platelet Volume 9.8 Immature Granulocytes % 0.300 Neutrophils % 47.2 Lymphocytes % 45.7 Monocytes % 5.2 Eosinophils % 1.0 Basophils % 0.6 Nucleated Red Blood Cells % 0.0 Immature Granulocytes # 0.020 Neutrophils # 3.8 Lymphocytes # 3.6 H Monocytes # 0.4 Eosinophils # 0.1 Basophils # 0.1 Nucleated Red Blood Cells # 0.0 Sodium Level 137 Potassium Level 3.4 L Chloride Level 105 Carbon Dioxide Level 24 Anion Gap 8 Blood Urea Nitrogen 16 Creatinine 0.57 Est Glomerular Filtrat Rate mL/min > 60 Glucose Level 113 Calcium Level 9.0 Exam/Review of Systems Vital Signs Vitals Vital Signs Date Temp Pulse Resp B/P (MAP) Pulse Ox O2 O2 Flow FiO2 Time Delivery Rate 09/22/18 98.1 68 18 139/82 96 12:19 (101) 09/22/18 Room Air 08:00 Intake and Output 09/21/18 09/21/18 09/22/18 1414:59 22:59 06:59 IntakeIntake Total 925 ml 1500 ml BalanceBalance 925 ml 1500 ml Medications Medications Current Medications IV Flush (NS 3 ml) 3 ml PER PROTOCOL IV ; Start 09/20/18 at 16:30 Ondansetron HCl (Zofran Inj) 4 mg Q6H PRN IV NAUSEA AND/OR VOMITING; Start 09/20/18 at 16:30 Acetaminophen (Tylenol Tab) 650 mg Q6H PRN PO PAIN LEVEL 1-3 OR FEVER Last administered on 09/22/18at 14:05; Admin Dose 650 MG; Start 09/20/18 at 16:30 Acetaminophen/ Hydrocodone Bitart ([place] (5/325)) 1 tab Q6H PRN PO MODERATE PAIN LEVEL 4-6 Last administered on 09/22/18at 11:43; Admin Dose 1 TAB; Start 09/20/18 at 16:30 Docusate Sodium (Colace) 100 mg Q12H PRN PO CONSTIPATION; Start 09/20/18 at 16:30 Magnesium Hydroxide (Milk Of Mag) 30 ml DAILY PRN PO CONSTIPATION; Start 09/20/18 at 16:30 Sodium Chloride 1,000 ml @ 75 mls/hr [id number] IV ; Start 09/20/18 at 16:30 Albuterol/ Ipratropium (Duoneb) 3 ml Q4H RESP THERAPY PRN HHN SHORTNESS OF BREATH; Start 09/20/18 at 16:30 Hydralazine HCl (Apresoline) 10 mg Q6H PRN IV SBP GREATER THAN 180; Start 09/20/18 at 16:30 Nitroglycerin (Nitroglycerin (Sl Tab) 0.4 Mg) 1 tab Q5M PRN SL ANGINA; Start 09/20/18 at 16:30 Multivitamins 10 ml/Folic Acid 1 mg/Sodium Chloride 1,010.2 ml @ 125 mls/ hr DAILY@09 IVPB Last administered on 09/21/18 08:22; Admin Dose 125 MLS/HR; Start 09/20/18 at 17:30 Chlordiazepoxide (Librium) 25 mg TID PO Last administered on 09/22/18 13:09; Admin Dose 25 MG; Start 09/20/18 at 21:00 Thiamine HCl (Vitamin B1) 100 mg DAILY PO Last administered on 09/22/18 08:41; Admin Dose 100 MG; Start 09/20/18 at 16:30 Nicotine (Nicoderm 21 Mg/ 24hr) 1 patch DAILY TRANSDERM Last administered on 09/22/18 08:40; Admin Dose 1 PATCH; Start 09/21/18 at 09:00 Lorazepam (Ativan) 0.5 mg Q6H PRN IV CONTROL WITHDRAWAL SYMPTOMS Last administered on 09/22/18 13:51; Admin Dose 0.5 MG; Start 09/21/18 at 16:30 Venlafaxine HCl (Effexor) 225 mg BID PO Last administered on 09/22/18 08:41; Admin Dose 225 MG; Start 09/21/18 at 21:00 Gabapentin (Neurontin) 1,200 mg TID PO Last administered on 09/22/18 13:09; Admin Dose 1,200 MG; Start 09/21/18 at 21:00 Trazodone HCl (Desyrel) 200 mg HS PO ; Start 09/22/18 at 21:00 Morphine Sulfate (morphine SULFATE (PF)) 1 mg Q6H PRN IV SEVERE PAIN LEVEL 7- 10; Start 09/22/18 at 16:30; Status UNV Multivitamins Therapeutic (Theragran) 1 tab DAILY PO ; Start 09/22/18 at 14:30; Status UNV Folic Acid (Folic Acid) 1 mg DAILY PO ; Start 09/22/18 at 14:30; Status UNV Carvedilol (Coreg) 6.25 mg BID PO ; Start 09/22/18 at 14:30; Status UNV Potassium Chloride (Klor-Con 20) 40 meq ONCE STAT PO ; Start 09/22/18 at 14:13; Stop 09/22/18 at 14:14; Status UNV KIMBERLI HUNT Sep 22, 2018 14:27
[2018-09-22] MEDS: MULTIVITAMINS THERAPEUTIC TAB PO SCH (16:03)
[2018-09-22] MEDS: FOLIC ACID 1 MG TAB PO SCH (16:03)
[2018-09-22] MEDS ORDERED: morphine SULFATE/PF (2 MG/2 ML) SYG IV PRN (16:30)
[2018-09-22] MEDS: LOPERAMIDE 2 MG CAP PO PRN (19:55)
[2018-09-22] MEDS ORDERED: traZODone 100 MG TAB PO SCH (21:00)
[2018-09-23 02:00] VITALS: BP 98/59; PULSE 68; RESP 18
[2018-09-23] MEDS: LOPERAMIDE 2 MG CAP PO PRN ×2 (02:53→08:44)
[2018-09-23] MEDS ORDERED: VITAMIN A & D 5 GM OINT PACKET TOP ONE (03:03)
[2018-09-23] MEDS: HYDROCODONE/APAP (5/325) TAB PO PRN ×3 (03:04→13:02)
[2018-09-23 08:00] VITALS: BP 100/61; PULSE 75; RESP 18
[2018-09-23] MEDS: VENLAFAXINE 75 MG TABLET PO SCH (08:44)
[2018-09-23] MEDS: THIAMINE 100 MG TAB PO SCH (08:45)
[2018-09-23] MEDS: CHLORDIAZEPOXIDE 25 MG CAP PO SCH ×2 (08:46→12:22)
[2018-09-23] MEDS: FOLIC ACID 1 MG TAB PO SCH (08:46)
[2018-09-23] MEDS: MULTIVITAMINS THERAPEUTIC TAB PO SCH (08:47)
[2018-09-23] MEDS: NICOTINE (21 MG/24 HR) PATCH TRANSDERM SCH (08:48)
[2018-09-23] MEDS: morphine SULFATE/PF (2 MG/2 ML) SYG IV PRN (08:57)
--- NOTE | 2018-09-23 09:50 | PDOCDIS ---
Discharge Instructions CONDITION [id number] Patient Condition: [id number] Stable HOME CARE INSTRUCTIONS: [id number] Diet Instructions: [id number] Regular ACTIVITY: [id number] Activity Restrictions: [id number] Slowly Increase Activity Rest between Activity Avoid heavy lifting FOLLOW UP/APPOINTMENTS Follow-up Plan Please remember to wear your brace and see your doctor in the clinic in the next 1-2 weeks. Take your medications as prescribed as well. KIMBERLI HUNT Sep 23, 2018 09:50
[2018-09-23] MEDS ORDERED: VENL75TA PO (09:54)
[2018-09-23] MEDS ORDERED: FOLI-49 PO (09:54)
[2018-09-23] MEDS ORDERED: TRA100 PO (09:54)
[2018-09-23] MEDS ORDERED: NICO-546 TRANSDERM (09:54)
[2018-09-23] MEDS ORDERED: LOPE-123 PO (09:54)
[2018-09-23] MEDS ORDERED: THIA100T56 PO (09:54)
[2018-09-23] MEDS ORDERED: UDMOM PO (09:54)
[2018-09-23] MEDS ORDERED: LOSA50TA14 PO (09:54)
[2018-09-23] MEDS ORDERED: GABA-526 PO (09:54)
[2018-09-23] MEDS ORDERED: MULTI PO (09:54)
[2018-09-23] MEDS ORDERED: OXYC-279 PO (09:56)
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
[2018-09-23] MEDS: GABAPENTIN 400 MG CAP PO SCH ×2 (10:25→12:22)
== END 2018-09-23 14:05 | disposition home or self-care (01) | DRG 552 ==
LOC: PP2 14:00 → 5EC 09-22 12:11
PROVIDERS: ADMIT Internal Medicine; ATTEND Hospitalist
DX: S32.049A Unspecified fracture of fourth lumbar vertebra, initial encounter for closed fracture (principal); K62.5 Hemorrhage of anus and rectum; E87.1 Hypo-osmolality and hyponatremia; F33.2 Major depressive disorder, recurrent severe without psychotic features; M54.5 Low back pain; Z59.0 Homelessness; Z72.89 Other problems related to lifestyle; I10 Essential (primary) hypertension; F43.10 Post-traumatic stress disorder, unspecified; M51.24 Other intervertebral disc displacement, thoracic region; M48.56XG Collapsed vertebra, not elsewhere classified, lumbar region, subsequent encounter for fracture with delayed healing
CPT/HCPCS: 72146; 72148; 80048; 80061; 81001; 81003; 83036; 83735; 84100; 84439; 84443; 85025; 85610; 85730; 87086; 97162; 97167; 97530; J2060; J2274; J7030; L0639

== ENCOUNTER 2018-10-01 04:26 | Inpatient (IN) | payer OTHER ==
[~2018-10-01] VITALS: Ht 172.7 cm; Wt 82.6 kg
[~2018-10-01 04:26] MED LIST changes: -CLON1TAB13 PO; +FOLI-49 PO; +LOPE-123 PO; +LORA1TAB PO; -METR500T PO; +MULTI PO; +NICO-546 TRANSDERM; +THIA100T56 PO; +TRA100 PO; +UDMOM PO; +VENL75TA PO; -VENL75TA2 PO
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
[2018-10-01] MEDS: SOD CHLORIDE 0.9% 1,000 ML IV SCH ×2 (07:58→22:06)
[2018-10-01 08:00] VITALS: BP 113/68; PULSE 68; RESP 18
[2018-10-01] MEDS ORDERED: NACL 0.9% 3 ML SYG IV SCH ×2 (08:00→10:00)
[2018-10-01] MEDS ORDERED: ACETAMINOPHEN 325 MG TAB PO PRN (08:00)
[2018-10-01] MEDS ORDERED: ONDANSETRON 4 MG INJ IV PRN ×2 (08:00→10:00)
--- NOTE | 2018-10-01 08:30 | NUR ---
Dr Smith, neurology, here to see pt, pt raises both legspt ambulates freely 1/2 length of earl but again requests IV medication for pain
[2018-10-01] MEDS ORDERED: LOPERAMIDE 2 MG CAP PO PRN (10:00)
[2018-10-01] MEDS ORDERED: MAGNESIUM HYDROXIDE 30ML CUP PO PRN (10:00)
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
[2018-10-01] MEDS: VENLAFAXINE 75 MG TABLET PO SCH ×2 (11:00→20:47)
[2018-10-01] MEDS: OXYCODONE/ACETAMINOPHEN (5/325) TAB PO PRN ×2 (11:55→18:10)
--- NOTE | 2018-10-01 12:00 | NUR ---
transported to CT per for CT of the lumbar and thoracic spine, oxycodone given per pt request
--- NOTE | 2018-10-01 12:25 | NUR ---
Patient received from tele unit at this time.
--- NOTE | 2018-10-01 12:45 | NUR ---
Liane(tele nurse) gave me reports now regarding the transfer patient is already here.
--- NOTE | 2018-10-01 12:45 | NUR ---
Pt transferred to 2E after CT, report called to receiving nurse
[2018-10-01] MEDS: GABAPENTIN 400 MG CAP PO SCH ×2 (13:00→20:47)
--- NOTE | 2018-10-01 13:00 | NUR ---
charge nurse Mamta started the iv line for normal saline.patient refused to get normal saline ivf as ordered.she is refusing to get neurontin and effexor tab as ordered.she is asking iv pain medication.she said''i am in severe back pain,i need iv dilaudid ,i do not want any other tablets''so paged regarding the patient's concern about the pain medicaton.
--- NOTE | 2018-10-01 13:38 | NUR ---
still waiting for for pain medication orders.she received the percocet right before she come to this floor.it is q 6 hours.she said''it is not helping''paged md regarding that .
--- NOTE | 2018-10-01 13:39 | NUR ---
patient said''i did not eat all day today ,''so ordered the tray and gave it to the patient.
--- NOTE | 2018-10-01 13:40 | NUR ---
patient refused full assessment including the skin assessment.she refused to check her belongins and refused to sign the belongins paper.she is so angry and agitated .
--- NOTE | 2018-10-01 13:44 | NUR ---
patient is refusing neurontin and effector and ivf.notified regarding this.
--- NOTE | 2018-10-01 16:31 | NUR ---
tried to do the head to toe assessment including the skin assessment few times since she is here.patient is refusing .refused to be touched .refused to answer the questions.she said''close the door,leave me alone''she refused ivf and all the orall medication as ordered. notified.Every time go to see the patient she is asking only pain medication .per no new pain medication .try neurontin and other oral medication .per patient she wants to get more pain medication before the neurontin and other orall medication.notified about that.
--- NOTE | 2018-10-01 16:51 | NUR ---
ask the patient to give me urine sample .she did not give urine sample.put the hat in the bathroom and she remove the hat and refused to give urine sample.
--- NOTE | 2018-10-01 18:40 | NUR ---
gave percocet as ordered.she said''it is not enough ,i need more pain medication''explained to her that only this medication doctor ordered for pain and he is aware about her concern and no new orders received.call light within reach.bed alarm on.
[2018-10-01 20:15] VITALS: BP 116/71; PULSE 88; RESP 18
--- NOTE | 2018-10-01 20:15 | NUR ---
TRANSFER Pt transferred from . Pt transported via gurney per transporter. Pt on bed in low position with call light within reach. Pt demanding and agitated. Vitals stable. Will monitor pt and carry out orders. Addendum: 10/02/18 at 0240 by ZAHRA CLAY RN Pt refused skin assessment pictures and belonging checks. Informed pt regarding need for urine sample, but pt states that was already given to previous nurse prior to transfer. Informed pt that still needs urine sample. Provided pt with specimen collection container.
[2018-10-01] MEDS: traZODone 100 MG TAB PO SCH (20:47)
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
[2018-10-01] MEDS: NAPROXEN 500 MG TAB PO SCH (22:02)
[2018-10-02] MEDS: OXYCODONE/ACETAMINOPHEN (5/325) TAB PO PRN ×2 (00:23→08:57)
[2018-10-02 02:00] VITALS: BP 90/57; PULSE 73; RESP 18
--- NOTE | 2018-10-02 05:25 | NUR ---
END OF SHIFT REPORT Pt alert and oriented x4. Pt on bed in low position with call light within reach. Vitals stable. No acute distress noted. Pt c/o lower extremity pain and percocet administered with relief of pain. Pt slept throughout the shift. Will endorse pt to AM shift nurse for continuation of care.
[2018-10-02 07:36] VITALS: BP 90/51; PULSE 72; RESP 16
[2018-10-02 08:53] VITALS: BP 120/73; PULSE 74
[2018-10-02] MEDS: NICOTINE (21 MG/24 HR) PATCH TRANSDERM SCH (08:56)
[2018-10-02] MEDS: VENLAFAXINE 75 MG TABLET PO SCH ×2 (08:56→20:38)
[2018-10-02] MEDS: THIAMINE 100 MG TAB PO SCH (08:57)
[2018-10-02] MEDS: FOLIC ACID 1 MG TAB PO SCH (08:57)
[2018-10-02] MEDS: NAPROXEN 500 MG TAB PO SCH ×2 (08:57→20:38)
[2018-10-02] MEDS: MULTIVITAMINS THERAPEUTIC TAB PO SCH (08:57)
[2018-10-02] MEDS: GABAPENTIN 400 MG CAP PO SCH ×3 (08:57→20:49)
[2018-10-02] MEDS: LOSARTAN 50 MG TAB PO SCH (08:58)
[2018-10-02] MEDS: LORAZEPAM 1 MG TAB PO PRN ×2 (11:27→23:58)
[2018-10-02] MEDS: SOD CHLORIDE 0.9% 1,000 ML IV SCH (12:26)
[2018-10-02] MEDS ORDERED: KETOROLAC 30 MG INJ IV STA (13:20)
--- NOTE | 2018-10-02 13:24 | PN ---
Date/Time of Note Date/Time of Note DATE: 10/02/18 TIME: 13:20 Assessment/Plan VTE Prophylaxis Risk score (from Nsg)>0 risk: 1 SCD applied (from Nsg): No SCD contraindicated: low risk/ambulating Pharmacological prophylaxis: NA/contraindicated Pharm contraindication: low risk/ambulating Lines/Catheters IV Catheter Type (from Nrsg): Peripheral IV Assessment/Plan Assessment/Plan 57F with chronic compression lumbar fractures presents with low back pain. #Chronic low back pain - Pain is likely due to herniated disc and compression fracture as seen on MRI. - Continue home meds: gabapentin, venlafaxine, naproxen - [place] 10 PO prn. - Also adding baclofen, toradol IV x1. - Patient is at high risk for opioid use disorder and dependence. Will hold off on IV opioids, these may do more harm than benefit. - Patient evaluated by Dr. Smith, no neurosurgical intervention needed. - Explained to patient that orthopedic surgery would best be considered after weeks of conservative medical management and would not make her pain go away. - TLSO brace when out of bed. Encourage ambulation. #Diarrhea - Patient reports chronic diarrhea >3 weeks despite very frequent opioids and loperamide - Continue home loperamide, monitor closely. - Low concern for bacterial colitis. DVT: Ambulation GI: None Result Diagram: 10/02/1816 10/02/1816 Subjective 24 Hr Interval Summary Free Text/Dictation No acute overnight events. Patient still has pain. Requesting to speak to an orthopedic surgeon for her back pain. Exam/Review of Systems Exam Vitals Vital Signs Date Temp Pulse Resp B/P (MAP) Pulse Ox O2 O2 Flow FiO2 Time Delivery Rate 10/02/18 74 120/73 08:53 (89) 10/02/18 97.9 16 91 Room Air 07:36 Exam Gen: Obese woman sitting up in bed comfortably eating lunch. Eyes: PERRL, no icterus HEENT: Moist mucous membranes, clear oropharynx Card: Regular rate and rhythm, no murmurs Pulm: Clear to auscultation bilaterally. Abd: Soft, nontender, nondistended. Ext: No cyanosis/clubbing/edema Skin: warm dry well perfused Gait: Ambulating with strong steady gait. Medications Medication Current Medications Sodium Chloride 1,000 ml @ 70 mls/hr [id number] IV ; Start 10/01/18 at 07:58 IV Flush (NS 3 ml) 3 ml PER PROTOCOL IV ; Start 10/01/18 at 08:00 Ondansetron HCl (Zofran Inj) 4 mg Q6H PRN IV NAUSEA/VOMITING; Start 10/01/18 at 08:00 Acetaminophen (Tylenol Tab) 650 mg Q6H PRN PO .PAIN 1-3 OR TEMP; Start 10/01/18 at 08:00 Folic Acid (Folic Acid) 1 mg DAILY PO Last administered on 10/02/18 08:57; Admin Dose 1 MG; Start 10/02/18 at 09:00 Gabapentin (Neurontin) 1,200 mg TID PO Last administered on 10/02/18 08:57; Admin Dose 1,200 MG; Start 10/01/18 at 13:00 Loperamide HCl (Imodium Cap) 2 mg Q6H PRN PO DIARRHEA; Start 10/01/18 at 10:00 Losartan Potassium (Cozaar) 50 mg DAILY PO Last administered on 10/02/18 08:58; Admin Dose 50 MG; Start 10/02/18 at 09:00 Magnesium Hydroxide (Milk Of Mag) 30 ml DAILY PRN PO CONSTIPATION; Start 10/01/18 at 10:00 Multivitamins Therapeutic (Theragran) 1 tab DAILY PO Last administered on 10/02/18 08:57; Admin Dose 1 TAB; Start 10/02/18 at 09:00 Naproxen (Naprosyn) 500 mg BID PO Last administered on 10/02/18 08:57; Admin Dose 500 MG; Start 10/01/18 at 21:00 Nicotine (Nicoderm 21 Mg/ 24hr) 1 patch DAILY TRANSDERM Last administered on 10/02/18 08:56; Admin Dose 1 PATCH; Start 10/02/18 at 09:00 Oxycodone/ Acetaminophen (Percocet (5/ 325)) 1 tab Q6H PRN PO SEVERE PAIN 7-10 Last administered on 10/02/18 08:57; Admin Dose 1 TAB; Start 10/01/18 at 12:00 Thiamine HCl (Vitamin B1) 100 mg DAILY PO Last administered on 10/02/18 08:57; Admin Dose 100 MG; Start 10/02/18 at 09:00 Trazodone HCl (Desyrel) 200 mg QHS PO Last administered on 10/01/18at 20:47; Admin Dose 200 MG; Start 10/01/18 at 21:00 Venlafaxine HCl (Effexor) 75 mg BID PO Last administered on 10/02/18at 08:56; Admin Dose 75 MG; Start 10/01/18 at 11:00 Lorazepam (Ativan) 2 mg Q12H PRN PO anxiety Last administered on 10/02/18at 11:27; Admin Dose 2 MG; Start 10/02/18 at 11:00 TIA FRAZIER MD Oct 02, 2018 13:24
[2018-10-02] MEDS: HYDROCODONE/APAP (10/325) TAB PO PRN ×3 (13:36→22:31)
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
[2018-10-02 15:28] VITALS: BP 101/57; PULSE 72; RESP 16
--- NOTE | 2018-10-02 18:26 | NUR ---
Pt alert and oriented x4. Pt on bed in low position with call light within reach. Vitals stable. No acute distress noted. Pt c/o lower extremity pain , pain medications administered per MD orders.
[2018-10-02 20:00] VITALS: BP 128/74; PULSE 92; RESP 19
[2018-10-02] MEDS: BACLOFEN 10 MG TAB PO SCH (20:38)
[2018-10-02] MEDS: traZODone 100 MG TAB PO SCH (20:49)
[2018-10-03] MEDS ORDERED: VITAMIN A & D 5 GM OINT PACKET TOP ONE ×2 (00:32→22:31)
[2018-10-03] MEDS ORDERED: METHOCARBAMOL 500 MG TAB PO ONE (01:30)
[2018-10-03 02:00] VITALS: BP 111/75; PULSE 82; RESP 18
[2018-10-03] MEDS: HYDROCODONE/APAP (10/325) TAB PO PRN ×4 (02:34→16:38)
[2018-10-03] MEDS: SOD CHLORIDE 0.9% 1,000 ML IV SCH ×2 (02:52→17:10)
--- NOTE | 2018-10-03 05:06 | NUR ---
END OF SHIFT REPORT Pt alert and oriented x4. Pt on bed in low position with call light within reach. Vitals stable. No acute distress noted. Pt c/o lower extremity pain. All due meds given, as well as norco and baclofen. Pt states baclofen did not work. Contacted Dr. Coyle and one time order for robaxin 500mg given to pt with relief of pain. Pt showered and nicotine patch fell off. Per pt will keep off and get new one in the morning. Pt state need new TLSO brace, as current one is broken per EMT. Will endorse pt to AM shift nurse for continuation of care.
[2018-10-03 08:01] VITALS: BP 99/55; PULSE 89; RESP 18
[2018-10-03] MEDS: LOSARTAN 50 MG TAB PO SCH (09:00)
[2018-10-03] MEDS: NAPROXEN 500 MG TAB PO SCH ×2 (09:01→20:32)
[2018-10-03] MEDS: FOLIC ACID 1 MG TAB PO SCH (09:01)
[2018-10-03] MEDS: GABAPENTIN 400 MG CAP PO SCH ×3 (09:01→20:32)
[2018-10-03] MEDS: NICOTINE (21 MG/24 HR) PATCH TRANSDERM SCH (09:01)
[2018-10-03] MEDS: VENLAFAXINE 75 MG TABLET PO SCH ×2 (09:01→20:32)
[2018-10-03] MEDS: THIAMINE 100 MG TAB PO SCH (09:02)
[2018-10-03] MEDS: BACLOFEN 10 MG TAB PO SCH ×3 (09:02→20:32)
[2018-10-03] MEDS: MULTIVITAMINS THERAPEUTIC TAB PO SCH (09:03)
[2018-10-03] MEDS: LORAZEPAM 1 MG TAB PO PRN (11:59)
--- NOTE | 2018-10-03 12:47 | NUR ---
SS NOTE: F/U SW F/U WITH PT REGARDING D/C PLANNING. SW MET WITH PT AT BEDSIDE, PT APPEARED TO BE A&OX4 AND COPING APPROPRIATELY. PT REQUESTED D/C TO RECUPERATIVE CARE INSTEAD OF BACK TO [facility]. SW TO F/U WITH PT'S [facility] BOOM WORKER COLLETTE BRAVO ([phone]) TO DISCUSS ALTERNATIVE D/C OPTIONS AND TO INQUIRE ABOUT POSSIBILITY OF RECUPERATIVE CARE PLACEMENT APPROVAL WITH [facility] DIRECTOR PAOLO SPANGLER. PLAN IS TO F/U WITH THE PT TOMORROW REGARDING INFORMATION. SW REMAINS AVAILABLE FOR F/U NEEDED
[2018-10-03 14:34] VITALS: BP 111/68; PULSE 80; RESP 18
--- NOTE | 2018-10-03 16:40 | PN ---
Date/Time of Note Date/Time of Note DATE: 10/03/18 TIME: 16:36 Assessment/Plan VTE Prophylaxis Risk score (from Nsg)>0 risk: 1 SCD applied (from Nsg): No SCD contraindicated: low risk/ambulating Pharmacological prophylaxis: other Lines/Catheters IV Catheter Type (from Nrsg): [place] Lock Assessment/Plan Hospital Course S: Patient still complaining of some mild pain symptoms. Seen by neurosurgery team 48 hours ago. Awaiting to have replacement of her TLSO brace presently. Seen by social media intern today as well. O: VS - see below PE: Gen: Obese woman lying in bed, alert Eyes: PERRL, no icterus HEENT: Moist mucous membranes, clear oropharynx Card: Regular rate and rhythm, no murmurs Pulm: Clear to auscultation bilaterally. Abd: Soft, nontender, nondistended. Ext: No cyanosis/clubbing/edema Gait: Per nursing staff, has been ambulating with strong steady gait. Assessment/Plan: 57F with chronic compression lumbar fractures presents with low back pain. #Chronic low back pain- Pain is likely due to herniated disc and compression fracture as seen on MRI. Per their assessment, the patient's new image findings are similar to those from September 20, 2018. No surgical intervention at this time. - Continue home meds: gabapentin, venlafaxine, naproxen - [place] 10 PO prn, baclofen - Patient is at high risk for opioid use disorder and dependence. Will hold off on IV opioids, these may do more harm than benefit. -Again patient evaluated by Dr. Smith, no neurosurgical intervention needed. - Explained to patient that orthopedic surgery would best be considered after weeks of conservative medical management and would not make her pain go away. - TLSO brace again is presently being ordered again, once this is delivered to the patient, hopefully today, at the latest in 24 hours, patient appears medically stable for discharge at that time #Diarrhea- Patient reports chronic diarrhea >3 weeks despite very frequent opioids and loperamide, resolving - Continue home loperamide, monitor closely. - Low concern for bacterial colitis. DVT: Ambulation GI: None Result Diagram: 10/02/18 0616 10/02/18 0616 Exam/Review of Systems Exam Vitals Vital Signs Date Temp Pulse Resp B/P (MAP) Pulse Ox O2 O2 Flow FiO2 Time Delivery Rate 10/03/18 98.4 80 18 111/68 95 Room Air 14:34 (82) Medications Medication Current Medications Sodium Chloride 1,000 ml @ 70 mls/hr [id number] IV ; Start 10/01/18 at 07:58 IV Flush (NS 3 ml) 3 ml PER PROTOCOL IV ; Start 10/01/18 at 08:00 Ondansetron HCl (Zofran Inj) 4 mg Q6H PRN IV NAUSEA/VOMITING; Start 10/01/18 at 08:00 Acetaminophen (Tylenol Tab) 650 mg Q6H PRN PO .PAIN 1-3 OR TEMP; Start 10/01/18 at 08:00 Folic Acid (Folic Acid) 1 mg DAILY PO Last administered on 10/03/18at 09:01; Admin Dose 1 MG; Start 10/02/18 at 09:00 Gabapentin (Neurontin) 1,200 mg TID PO Last administered on 10/03/18at 12:48; Admin Dose 1,200 MG; Start 10/01/18 at 13:00 Loperamide HCl (Imodium Cap) 2 mg Q6H PRN PO DIARRHEA; Start 10/01/18 at 10:00 Losartan Potassium (Cozaar) 50 mg DAILY PO Last administered on 10/02/18 08:58; Admin Dose 50 MG; Start 10/02/18 at 09:00 Magnesium Hydroxide (Milk Of Mag) 30 ml DAILY PRN PO CONSTIPATION Last administered on 10/03/18 14:54; Admin Dose 30 ML; Start 10/01/18 at 10:00 Multivitamins Therapeutic (Theragran) 1 tab DAILY PO Last administered on 09:03; Admin Dose 1 TAB; Start 10/02/18 at 09:00 Naproxen (Naprosyn) 500 mg BID PO Last administered on 10/03/18 09:01; Admin Dose 500 MG; Start 10/01/18 at 21:00 Nicotine (Nicoderm 21 Mg/ 24hr) 1 patch DAILY TRANSDERM Last administered on 10/03/18 09:01; Admin Dose 1 PATCH; Start 10/02/18 at 09:00 Thiamine HCl (Vitamin B1) 100 mg DAILY PO Last administered on 10/03/18 09:02; Admin Dose 100 MG; Start 10/02/18 at 09:00 Trazodone HCl (Desyrel) 200 mg QHS PO Last administered on 10/02/18 20:49; Admin Dose 200 MG; Start 10/01/18 at 21:00 Venlafaxine HCl (Effexor) 75 mg BID PO Last administered on 10/03/18 09:01; Admin Dose 75 MG; Start 10/01/18 at 11:00 Lorazepam (Ativan) 2 mg Q12H PRN PO anxiety Last administered on 10/03/18 11:59; Admin Dose 2 MG; Start 10/02/18 at 11:00 Acetaminophen/ Hydrocodone Bitart ([place] ()) 1 tab Q4H PRN PO SEVERE PAIN LEVEL 7-10 Last administered on 10/03/18 11:59; Admin Dose 1 TAB; Start 10/02/18 at 13:30 Baclofen (Lioresal) 10 mg TID PO Last administered on 10/03/18 12:48; Admin Dose 10 MG; Start 10/02/18 at 21:00 KIMBERLI HUNT Oct 03, 2018 16:40
[2018-10-03 17:03] VITALS: Ht 172.7 cm; Wt 82.6 kg
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
[2018-10-03] MEDS ORDERED: OXYCODONE/ACETAMINOPHEN (5/325) TAB PO PRN (18:30)
[2018-10-03 20:08] VITALS: BP 119/69; PULSE 85; RESP 18
[2018-10-03] MEDS ORDERED: DIPHENOXYLATE/ATROPINE TAB PO PRN (21:30)
[2018-10-03] MEDS: HYDROCORTISONE 0.5% 28.35 GM CR TOP PRN (21:47)
--- NOTE | 2018-10-03 22:02 | NUR ---
Pt. is having multiple complaints about her medications. Spoke to Dr. Alexander and received new orders for pain medicine, for diarrhea, DVT prophylaxis, and itching of her hands. Pt. was complaining about the frequency of the hydrocortisone cream and was requesting to keep it at the bedside. Educated pt. that we cannot keep prescriptions at the bedside. Pt. is also requesting benadryl for her itchy hands. Benjamin ordered benadryl PO x2 doses
[2018-10-03] MEDS: DIPHENHYDRAMINE 25 MG CAP PO SCH (22:53)
[2018-10-03] MEDS: OXYCODONE/ACETAMINOPHEN (10/325) TAB PO PRN (22:53)
--- NOTE | 2018-10-03 23:21 | NUR ---
Pt. came to nurses station complaining about BMAT tool in her room. Saying that nurses have been documenting that she is walking in the hallway. Yet she has been walking in the hallway 5 times so far this shift to come talk to us at the nurses station. Pt. also kept saying that she was going to take a shower tonight so the TESTER OPERATOR Dhaval got her all the supplies and set up the shower chair. Dhaval has been asking her several times when she would like to shower and pt. keeps saying she will call when ready. Later on, pt. said she is not gonna shower tonight.
[2018-10-03] MEDS: traZODone 100 MG TAB PO SCH (23:37)
[2018-10-03] MEDS: DIPHENOXYLATE/ATROPINE TAB PO PRN (23:37)
[2018-10-04] MEDS: LORAZEPAM 1 MG TAB PO PRN ×2 (01:34→15:00)
[2018-10-04 01:39] VITALS: BP 109/74; PULSE 78; RESP 18
--- NOTE | 2018-10-04 06:10 | NUR ---
EOSS: Pt. rested for most of the shift. No acute changes. Due meds given. Pt. was complaining of diarrhea. Pt. had imodium already ordered but wanted lomotil. Received new order. When I assessed pt.s stool, it appeared formed but soft. All needs attended to. Pt. free from injury. Will endorse care to oncoming nurse
[2018-10-04] MEDS: SOD CHLORIDE 0.9% 1,000 ML IV SCH (07:28)
[2018-10-04 08:00] VITALS: BP 112/68; PULSE 74; RESP 18
[2018-10-04] MEDS: MULTIVITAMINS THERAPEUTIC TAB PO SCH (08:39)
[2018-10-04] MEDS: NAPROXEN 500 MG TAB PO SCH (08:39)
[2018-10-04] MEDS: BACLOFEN 10 MG TAB PO SCH ×2 (08:39→12:29)
[2018-10-04] MEDS: VENLAFAXINE 75 MG TABLET PO SCH (08:39)
[2018-10-04] MEDS: GABAPENTIN 400 MG CAP PO SCH ×2 (08:39→12:28)
[2018-10-04] MEDS: LOSARTAN 50 MG TAB PO SCH (08:40)
[2018-10-04] MEDS: FOLIC ACID 1 MG TAB PO SCH (08:40)
[2018-10-04] MEDS: THIAMINE 100 MG TAB PO SCH (08:40)
[2018-10-04] MEDS: OXYCODONE/ACETAMINOPHEN (10/325) TAB PO PRN ×2 (08:44→13:46)
[2018-10-04] MEDS ORDERED: HEPARIN 5,000 UNIT/1 ML VIAL SC SCH (09:00)
[2018-10-04] MEDS: NICOTINE (21 MG/24 HR) PATCH TRANSDERM SCH (09:21)
[2018-10-04] MEDS: DIPHENOXYLATE/ATROPINE TAB PO PRN ×2 (09:25→15:06)
[2018-10-04] MEDS: HYDROCORTISONE 0.5% 28.35 GM CR TOP PRN (11:26)
[2018-10-04] MEDS: DIPHENHYDRAMINE 25 MG CAP PO SCH (12:29)
[2018-10-04] MEDS ORDERED: DIPHENHYDRAMINE 25 MG CAP PO SCH (12:30)
--- NOTE | 2018-10-04 13:25 | PDOCDIS ---
Discharge Instructions CONDITION [id number] Patient Condition: [id number] Stable HOME CARE INSTRUCTIONS: [id number] Diet Instructions: Naohs7c Low Fat /Cholesterol ACTIVITY: [id number] Activity Restrictions: [id number] Slowly Increase Activity Rest between Activity Avoid heavy lifting FOLLOW UP/APPOINTMENTS Follow-up Plan Please wear your TLSO brace as instructed by the neurosurgery team. Please take your medications as prescribed. KIMBERLI HUNT Oct 04, 2018 13:25
[2018-10-04] MEDS ORDERED: BIOT10004 PO (13:29)
[2018-10-04] MEDS ORDERED: MULTI PO (13:29)
[2018-10-04] MEDS ORDERED: LOPE-123 PO (13:29)
[2018-10-04] MEDS ORDERED: DICY10CA40 PO (13:29)
[2018-10-04] MEDS ORDERED: VENL75TA PO (13:29)
[2018-10-04] MEDS ORDERED: FOLI-49 PO (13:29)
[2018-10-04] MEDS ORDERED: GABA-526 PO (13:29)
[2018-10-04] MEDS ORDERED: LOSA50TA14 PO (13:29)
[2018-10-04] MEDS ORDERED: TRA100 PO (13:29)
[2018-10-04] MEDS ORDERED: UDMOM PO (13:29)
[2018-10-04] MEDS ORDERED: NICO-546 TRANSDERM (13:29)
[2018-10-04] MEDS ORDERED: OXYC-279 PO (13:29)
[2018-10-04] MEDS ORDERED: LACT1CAP28 PO (13:29)
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
[2018-10-04 14:00] VITALS: BP 85/58; PULSE 79; RESP 18
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
--- NOTE | 2018-10-04 14:45 | NUR ---
SS NOTE: F/U RE: D/C JOHANNY F/U WITH PT REGARDING D/C PLAN. JOHANNY CONFIRMED WITH PT'S [facility] MAGAZINE PUBLISHER COLLETTE BRAVO ([phone]) THAT PT IS ABLE TO GO BACK TO THE [facility] AND IT IS SAFE FOR THE PT TO GO BACK THERE. PT IS ABLE TO STAY AT THAT FACILITY DURING PERMANENT HOUSING PLACEMENT PROCESS. JOHANNY DISCUSSED WITH PT TO F/U WITH HER CASEWORKERS WITH [facility] FOR HER REQUEST TO BE PLACED IN RECUPERATIVE CARE. JOHANNY CONTACTED [place] [id number] AND SPOKE WITH COMMUNITY FRONT END ARCHITECT CARMEN FOR REFERRALS TO ALTERNATIVE EMERGENCY PLACEMENT OPTIONS. [address] [place] [address] PROVIDED REFERRALS INCLUDING [facility] AND [facility] JOHANNY DISCUSSED AND PROVIDED RESOURCES TO PT ALTERNATIVE TO PLACEMENT BACK TO [facility]. PT DECLINED [facility] OPTION AND INFORMED THIS [employer] PRODUCER THAT HER PLAN IS TO GO BACK TO [facility] IN [place]. TAXI VOUCHER TO BE PROVIDED AT TIME OF D/C. JOHANNY REMAINS AVAILABLE FOR F/U NEEDED.
[2018-10-04 16:13] VITALS: BP 113/64; PULSE 85
--- NOTE | 2018-10-04 16:23 | NUR ---
SS NOTE: F/U RE: D/C PT SIGNED THE HOMELESS CONSENT DISCHARGE FORM AND COPY WAS PLACED IN THE PT'S CHART. PLAN IS FOR PT TO GO BACK TO [place] [facility] WHERE HER CM WILL CONTINUE TO WORK WITH HER TO PROVIDE A PERMANENT HOUSING SOLUTION. SW REMAINS AVAILABLE FOR F/U NEEDED.
[2018-10-04 16:48] VITALS: BP 107/56; PULSE 88
[2018-10-04 16:58] VITALS: BP 113/60; PULSE 80
--- NOTE | 2018-10-04 17:35 | NUR ---
DC Note: Addendum: 10/04/18 at 1812 by NIR BELL RN Pt. Sky/Ox4, VSS. DC'd via wheelchair with volunteer and security. Dc'd with taxi voucher. All necessary paperwork went over with, prescriptions given, all belongings accounted for; pt. signed paperwork and verbalized understanding. Sent with SAMY thomason. IV and armband removed.
== END 2018-10-04 17:39 | disposition home or self-care (01) | DRG 561 ==
LOC: TEL 07:39 → PP2 12:25 → 5EC 20:20
PROVIDERS: ADMIT Family Medicine; ATTEND Hospitalist
DX: M48.56XD Collapsed vertebra, not elsewhere classified, lumbar region, subsequent encounter for fracture with routine healing (principal); F17.200 Nicotine dependence, unspecified, uncomplicated; K52.9 Noninfective gastroenteritis and colitis, unspecified; F43.10 Post-traumatic stress disorder, unspecified; M51.26 Other intervertebral disc displacement, lumbar region; I10 Essential (primary) hypertension; Z72.89 Other problems related to lifestyle; Z59.0 Homelessness
CPT/HCPCS: 72128; 72131; 80053; 80061; 80307; 83036; 83735; 84100; 84443; 85025; 85610; 85730; J1644; J1885; J7030; L0639

== ENCOUNTER 2019-02-11 23:56 | Emergency (ER) | payer OTHER ==
[~2019-02-11] VITALS: Ht 172.7 cm; Wt 76.5 kg
[~2019-02-11 23:56] MED LIST changes: -LORA1TAB PO; -NAPR-688 PO; -VENL150C PO
[2019-02-12] VITALS: Ht 172.7 cm; Wt 76.5 kg
[2019-02-12] MEDS: IBUPROFEN 600 MG TAB PO ONE ×2 (01:45→01:56)
[2019-02-12] MEDS ORDERED: IBUP800T48 PO (03:29)
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
[2019-02-12 03:44] VITALS: BP 113/74; PULSE 81; RESP 18
== END 2019-02-12 04:38 | disposition home or self-care (01) ==
LOC: E/R 23:56
DX: S32.010A Wedge compression fracture of first lumbar vertebra, initial encounter for closed fracture (principal); I10 Essential (primary) hypertension; F17.210 Nicotine dependence, cigarettes, uncomplicated; N28.9 Disorder of kidney and ureter, unspecified; S32.030A Wedge compression fracture of third lumbar vertebra, initial encounter for closed fracture; T74.21XA Adult sexual abuse, confirmed, initial encounter; S32.040A Wedge compression fracture of fourth lumbar vertebra, initial encounter for closed fracture; S32.050A Wedge compression fracture of fifth lumbar vertebra, initial encounter for closed fracture; Y07.50 Unspecified non-family member, perpetrator of maltreatment and neglect
CPT/HCPCS: 36415; 74176; 80053; 81001; 83690; 85025; Z7502; Z7610

== ENCOUNTER 2019-03-10 16:43 | Emergency (ER) | payer OTHER ==
[~2019-03-10] VITALS: Ht 167.6 cm; Wt 73.5 kg
[~2019-03-10 16:43] MED LIST changes: +IBUP800T48 PO
[2019-03-10 16:45] VITALS: Ht 167.6 cm; Wt 73.5 kg
[2019-03-10] MEDS ORDERED: KETOROLAC 15 MG INJ IV STA (18:52)
[2019-03-10] MEDS ORDERED: SOD CHLORIDE 0.9% 500 ML IV STA (18:52)
[2019-03-10] MEDS ORDERED: ONDANSETRON 4 MG INJ IV STA (18:52)
--- NOTE | 2019-03-10 18:55 | ERD ---
ER Documentation Chief Complaint Chief Complaint chest pain , abd pain , blisters on feet HPI This is a 58-year-old woman complaining of abdominal pain and sharp nonexertional nonradiating chest pain as well. Her abdominal pain is crampy and diffuse and she denies precipitating or alleviating factors. She denies suicidal homicidal ideation, no recent weight loss, no fevers or chills, no dysuria. Patient states she has a long history of chronic regional pain syndrome and is requesting opioid analgesics for pain control. ROS All systems reviewed and are negative except as per history of present illness. Medications Home Meds Active Scripts Cephalexin* (Keflex*) 500 Mg Capsule, 500 MG PO QID for 5 Days, CAP Prov:RON LYNNE MD 03/10/19 Ibuprofen* (Motrin*) 800 Mg Tab, 800 MG PO Q6H PRN for PAIN AND OR ELEVATED TEMP, #21 TAB Prov:HEMALATHA FORBES DO 02/12/19 Venlafaxine Hcl* (Venlafaxine Hcl*) 75 Mg Tablet, 75 MG PO BID, #60 TAB 2 Refills Prov:KIMBERLI HUNT S. 10/04/18 Oxycodone HCl/Acetaminophen (Percocet 5-325 mg Tablet) 1 Each Tablet, 1 EACH PO Q6, #25 TAB Prov:KIMBERLI HUNT S. 10/04/18 Multivitamins* (Theragran*) 1 Tab Tab, 1 TAB PO DAILY, #30 TAB 2 Refills Prov:KIMBERLI HUNT S. 10/04/18 Folic Acid* (Folic Acid*) 1 Mg Tablet, 1 MG PO DAILY, #30 TAB 2 Refills Prov:KIMBERLI HUNT S. 10/04/18 Magnesium Hydroxide* (Carl[place]' MOM*) 30 Ml Susp, 30 ML PO DAILY PRN for CONSTIPATION, #1 BOTTLE Prov:KIMBERLI HUNT S. 10/04/18 Loperamide Hcl* (Loperamide Hcl*) 2 Mg Cap, 2 MG PO Q6 PRN for DIARRHEA, #20 CAP Prov:KIMBERLI HUNT S. 10/04/18 Nicotine* (Nicotine* Patch) 21 mg/day Patch, 1 PATCH TRANSDERM DAILY for 30 Days, #1 BOTTLE 4 Refills Prov:KIMBERLI HUNT S. 10/04/18 Trazodone Hcl* (Trazodone Hcl*) 100 Mg Tablet, 200 MG PO QHS, #30 TAB 2 Refills Prov:KIMBERLI HUNT S. 10/04/18 Losartan Potassium* (Losartan Potassium*) 50 Mg Tablet, 50 MG PO DAILY, #30 TAB 3 Refills Prov:KIMBERLI HUNT S. 10/04/18 Gabapentin* (Gabapentin*) 600 Mg Tablet, 1200 MG PO TID, #180 TAB 1 Refill Prov:KIMBERLI HUNT S. 10/04/18 Lactobacillus Rhamnosus GG (Culturelle) 1 Each Capsule, 1 CAP PO WITH MEALS for 30 Days, #90 CAP Prov:KIMBERLI HUNT S. 10/04/18 Biotin (Biotin) 1,000 Mcg Tab.chew, 1000 MCG PO DAILY, #30 TAB.CHEW Prov:KIMBERLI HUNT S. 10/04/18 Dicyclomine HCl (Dicyclomine HCl) 10 Mg Capsule, 10 MG PO TID PRN for PRN, #60 CAP Prov:KIMBERLI HUNT S. 10/04/18 Thiamine* (Vitamin B-1*) 100 Mg Tablet, 100 MG PO DAILY, #30 TAB 2 Refills Prov:KIMBERLI HUNT S. 09/23/18 Allergies Allergies: Coded Allergies: bupropion (Verified Allergy, Unknown, Hives, 08/11/17) chlorthalidone (Verified Allergy, Unknown, 08/08/17) PMhx/Soc Chronic pain syndrome, opioid dependence, hypertension, history of diverticulitis History of Surgery: Yes (RIGHT KNEE SURGERY 2008) Anesthesia Reaction: No Hx Neurological Disorder: No Hx Respiratory Disorders: No Hx Cardiac Disorders: Yes (HTN) Hx Psychiatric Problems: No (PTSD, Anxiety, Depression.) Hx Miscellaneous Medical Probl: Yes (HTN,ETOH use,PTSD,anxiety) Hx Alcohol Use: Yes Hx Substance Use: No Hx Tobacco Use: Yes FmHx Family History: No diabetes Physical Exam Vitals Vital Signs Date Temp Pulse Resp B/P (MAP) Pulse Ox O2 O2 Flow FiO2 Time Delivery Rate 03/10/19 98.0 84 20 125/83 100 Room Air 20:39 (97) 03/10/19 98.1 90 18 128/83 100 16:45 (98) Physical Exam Const: No acute distress, afebrile, appears intoxicated Resp: Clear to auscultation bilaterally Cardio: Regular rate and rhythm, no murmurs Abd: Soft, non tender, non distended. Skin: No petechiae or rashes Back: No midline or flank tenderness Ext: No cyanosis, or edema Neur: Awake and alert x3, no focal deficits or facial asymmetry, pupils equal round reactive to light Psych: Normal Mood and Affect Result Diagram: 03/10/19192403/10/191924 Results 24 hrs Laboratory Tests Test 03/10/19 19:25 White Blood Count 5.8 10^3/ul Red Blood Count 3.64 10^6/ul Hemoglobin 12.4 g/dl Hematocrit 34.9 % Mean Corpuscular Volume 95.9 fl Mean Corpuscular Hemoglobin 34.1 pg Mean Corpuscular Hemoglobin Concent 35.5 g/dl Red Cell Distribution Width 12.1 % Platelet Count 133 10^3/UL Mean Platelet Volume 9.2 fl Immature Granulocytes % 0.200 % Neutrophils % 50.6 % Lymphocytes % 41.0 % Monocytes % 6.1 % Eosinophils % 1.6 % Basophils % 0.5 % Nucleated Red Blood Cells % 0.0 /100WBC Immature Granulocytes # 0.010 10^3/ul Neutrophils # 2.9 10^3/ul Lymphocytes # 2.4 10^3/ul Monocytes # 0.4 10^3/ul Eosinophils # 0.1 10^3/ul Basophils # 0.0 10^3/ul Nucleated Red Blood Cells # 0.0 10^3/ul Urine Color YELLOW Urine Clarity CLEAR Urine pH 6.0 Urine Specific [place] 1.017 Urine Ketones TRACE mg/dL Urine Nitrite NEGATIVE mg/dL Urine Bilirubin NEGATIVE mg/dL Urine Urobilinogen 1+ mg/dL Urine Leukocyte Esterase TRACE Peter/ul Urine Microscopic RBC 1 /HPF Urine Microscopic WBC 7 /HPF Urine Squamous Epithelial Cells FEW /HPF Urine Hemoglobin NEGATIVE mg/dL Urine Glucose NEGATIVE mg/dL Urine Total Protein NEGATIVE mg/dl Sodium Level 137 mmol/L Potassium Level 3.5 mmol/L Chloride Level 103 mmol/L Carbon Dioxide Level 24 mmol/L Anion Gap 10 Blood Urea Nitrogen 28 mg/dl Creatinine 0.76 mg/dl Est Glomerular Filtrat Rate mL/min > 60 mL/min Glucose Level 99 mg/dl Calcium Level 9.0 mg/dl Total Bilirubin 0.8 mg/dl Direct Bilirubin 0.00 mg/dl Indirect Bilirubin 0.8 mg/dl Aspartate Amino Transf (AST/SGOT) 51 IU/L Alanine Aminotransferase (ALT/SGPT) 44 IU/L Alkaline Phosphatase 96 IU/L Troponin I < 0.012 ng/ml Total Protein 7.4 g/dl Albumin 4.2 g/dl Globulin 3.20 g/dl Albumin/Globulin Ratio 1.31 Lipase 72 U/L Urine Opiates Screen Negative Urine Barbiturates Negative Urine Amphetamines Screen POSITIVE Urine Benzodiazepines Screen Negative Urine Cocaine Screen Negative Urine Cannabinoids Negative Ethyl Alcohol Level < 10.0 mg/dl Current Medications Medications Dose Sig/Mayo Start Time Status Last (Trade) Ordered Route PRN Stop Time Admin Dose Reason Admin Sodium 500 ml @ Q1H STAT 03/10/19 DC 03/10/19 Chloride 500 mls/hr IV 18:52 03/10/19 19:29 19:51 Ondansetron 4 mg ONCE STAT 03/10/19 DC 03/10/19 HCl (Zofran IV 18:52 03/10/19 19:27 Inj) 18:54 Ketorolac 15 mg ONCE STAT 03/10/19 DC 03/10/19 Tromethamine IV 18:52 03/10/19 19:28 (Toradol) 18:54 Cephalexin 500 mg ONCE ONCE 03/10/19 DC 03/10/19 (Keflex) PO 20:00 03/10/19 20:15 20:01 Procedures/MDM IV line was established patient was placed on cardiac cath technologist rhythm strip revealed a sinus rhythm at about 90 bpm with upright P and T waves. Patient was afebrile I administered 500 cc normal saline IV, Toradol 15 mg IV, Zofran 4 mg IV for dizziness EKG performed, read by me: 90 bpm, normal sinus rhythm, normal axis, no acute ST segment changes, narrow QRS complex, with good R-wave progression in precordial leads. One AP view of the chest performed, read by me reveals no acute infiltrates, normal mediastinum, sharp costophrenic and cardiac borders, no air under the diaphragm. Otherwise unremarkable chest x-ray. CBC and electrolytes are normal, liver function tests were normal, troponin was negative, urinalysis positive for infection. Ethanol level is negative but drug screen positive for methamphetamines consistent with her overall presentation I administered cephalexin 500 mg p.o. x1 for UTI. Differential diagnoses considered, included but not limited to acute coronary syndrome, pulmonary embolism, aortic dissection, abdominal aortic aneurysm, sepsis, stroke, meningitis, encephalitis, pneumonia, appendicitis, chol ecystitis, bowel obstruction, pyelonephritis, nephrolithiasis, cystitis, as well as metabolic, hematologic, and electrolyte abnormalities. As well as abscess, cellulitis, fractures, and dislocations. Patient feels much better at this time, and vital signs are normal, symptoms have improved. I did give strict instructions to return to the ED if symptoms continue or worsen, patient will otherwise follow-up with primary care physician. Patient understood instructions and agreed to plan. Disclaimer: Inadvertent spelling and grammatical errors are likely due to EHR/dictation software use and do not reflect on the overall quality of patient care. Also, please note that the electronic time recorded on this note does not necessarily reflect the actual time of the patient encounter. Departure Diagnosis: Primary Impression: Dizziness Additional Impressions: Chest pain Chest pain type: unspecified Qualified Codes: R07.9 - Chest pain, unspecified Acute dehydration Methamphetamine abuse Acute UTI Condition: RON Luna MD Mar 10, 2019 18:55
[2019-03-10] MEDS ORDERED: CEPHALEXIN 500 MG CAP PO ONE (20:00)
[2019-03-10] MEDS ORDERED: CEPH-443 PO (20:11)
[2019-03-10 20:39] VITALS: BP 125/83; PULSE 84; RESP 20
== END 2019-03-10 20:53 | disposition home or self-care (01) ==
LOC: E/R 16:43
DX: E86.0 Dehydration (principal); F15.10 Other stimulant abuse, uncomplicated; N39.0 Urinary tract infection, site not specified; I10 Essential (primary) hypertension
CPT/HCPCS: 36415; 71045; 80053; 80307; 81001; 83690; 84484; 85025; 96361; 96374; 96375; J1885; J2405; J7040; Z7502; Z7610; 93005

== ENCOUNTER 2019-03-10 20:47 | Emergency (ER) | payer SELFPAY ==
[~2019-03-10] VITALS: Ht 172.7 cm; Wt 70.0 kg
[~2019-03-10 20:47] MED LIST changes: +CEPH-443 PO
[2019-03-10 20:54] VITALS: BP 140/70; PULSE 80; RESP 16; Ht 172.7 cm; Wt 70.0 kg
== END 2019-03-10 22:37 | disposition left against medical advice (07) ==
LOC: FTE 20:47
DX: Z53.21 Procedure and treatment not carried out due to patient leaving prior to being seen by health care provider (principal)

== ENCOUNTER 2019-03-22 19:06 | Emergency (ER) | payer OTHER ==
[~2019-03-22] VITALS: Ht 172.7 cm; Wt 70.6 kg
[2019-03-22 19:28] VITALS: Ht 172.7 cm; Wt 70.6 kg
[2019-03-22] MEDS ORDERED: SOD CHLORIDE 0.9% 1,000 ML IV STA (22:21)
[2019-03-22] MEDS ORDERED: ONDANSETRON 4 MG INJ IV STA (22:21)
[2019-03-22] MEDS ORDERED: KETOROLAC 30 MG INJ IV STA (22:21)
[2019-03-23 02:49] VITALS: BP 108/85; PULSE 83; RESP 18
--- NOTE | 2019-03-23 02:51 | ERD ---
ER Documentation Chief Complaint Chief Complaint dizziness x 1 day, c/o generalize body weakness HPI This is a 58-year female complains of headache. She is well-known to this is been in multiple times. Patient is verbally abusive to staff. Denies suicidal homicidal ideation. Denies auditory or visual hallucinations. ROS All systems reviewed and are negative except as per history of present illness. Medications Home Meds Active Scripts Cephalexin* (Keflex*) 500 Mg Capsule, 500 MG PO QID for 5 Days, CAP Prov:RON LYNNE MD 03/10/19 Ibuprofen* (Motrin*) 800 Mg Tab, 800 MG PO Q6H PRN for PAIN AND OR ELEVATED TEMP, #21 TAB Prov:HEMALATHA FORBES DO 02/12/19 Venlafaxine Hcl* (Venlafaxine Hcl*) 75 Mg Tablet, 75 MG PO BID, #60 TAB 2 Refills Prov:KIMBERLI HUNT S. 10/04/18 Oxycodone HCl/Acetaminophen (Percocet 5-325 mg Tablet) 1 Each Tablet, 1 EACH PO Q6, #25 TAB Prov:KIMBERLI HUNT S. 10/04/18 Multivitamins* (Theragran*) 1 Tab Tab, 1 TAB PO DAILY, #30 TAB 2 Refills Prov:KIMBERLI HUNT S. 10/04/18 Folic Acid* (Folic Acid*) 1 Mg Tablet, 1 MG PO DAILY, #30 TAB 2 Refills Prov:KIMBERLI HUNT S. 10/04/18 Magnesium Hydroxide* ([place]' MOM*) 30 Ml Susp, 30 ML PO DAILY PRN for CONSTIPATION, #1 BOTTLE Prov:KIMBERLI HUNT S. 10/04/18 Loperamide Hcl* (Loperamide Hcl*) 2 Mg Cap, 2 MG PO Q6 PRN for DIARRHEA, #20 CAP Prov:KIMBERLI HUNT S. 10/04/18 Nicotine* (Nicotine* Patch) 21 mg/day Patch, 1 PATCH TRANSDERM DAILY for 30 Days, #1 BOTTLE 4 Refills Prov:KIMBERLI HUNT S. 10/04/18 Trazodone Hcl* (Trazodone Hcl*) 100 Mg Tablet, 200 MG PO QHS, #30 TAB 2 Refills Prov:KIMBERLI HUNT S. 10/04/18 Losartan Potassium* (Losartan Potassium*) 50 Mg Tablet, 50 MG PO DAILY, #30 TAB 3 Refills Prov:KIMBERLI HUNT S. 10/04/18 Gabapentin* (Gabapentin*) 600 Mg Tablet, 1200 MG PO TID, #180 TAB 1 Refill Prov:KIMBERLI HUNT S. 10/04/18 Lactobacillus Rhamnosus GG (Culturelle) 1 Each Capsule, 1 CAP PO WITH MEALS for 30 Days, #90 CAP Prov:KIMBERLI HUNT S. 10/04/18 Biotin (Biotin) 1,000 Mcg Tab.chew, 1000 MCG PO DAILY, #30 TAB.CHEW Prov:KIMBERLI HUNT S. 10/04/18 Dicyclomine HCl (Dicyclomine HCl) 10 Mg Capsule, 10 MG PO TID PRN for PRN, #60 CAP Prov:KIMBERLI HUNT S. 10/04/18 Thiamine* (Vitamin B-1*) 100 Mg Tablet, 100 MG PO DAILY, #30 TAB 2 Refills Prov:KIMBERLI HUNT S. 09/23/18 Allergies Allergies: Coded Allergies: bupropion (Verified Allergy, Unknown, Hives, 08/11/17) chlorthalidone (Verified Allergy, Unknown, 08/08/17) PMhx/Soc History of Surgery: Yes (RIGHT KNEE SURGERY 2008) Anesthesia Reaction: No Hx Neurological Disorder: No Hx Respiratory Disorders: No Hx Cardiac Disorders: Yes (HTN) Hx Psychiatric Problems: No (PTSD, Anxiety, Depression.) Hx Miscellaneous Medical Probl: Yes (HTN,ETOH use,PTSD,anxiety) Hx Alcohol Use: Yes Hx Substance Use: No Hx Tobacco Use: Yes Smoking Status: Current every day smoker Physical Exam Vitals Vital Signs Date Temp Pulse Resp B/P (MAP) Pulse Ox O2 O2 Flow FiO2 Time Delivery Rate 03/23/19 83 18 108/85 95 Room Air 02:49 (93) 03/23/19 77 20 104/81 100 Room Air 01:53 (89) 03/22/19 99.0 72 18 109/69 96 19:28 (82) Physical Exam Const: No acute distress Head: Atraumatic Eyes: Normal Conjunctiva ENT: Normal External Ears, Nose and Mouth. Neck: Full range of motion. No meningismus. Resp: Clear to auscultation bilaterally Cardio: Regular rate and rhythm, no murmurs Abd: Soft, non tender, non distended. Normal bowel sounds Skin: No petechiae or rashes Back: No midline or flank tenderness Ext: No cyanosis, or edema Neur: Awake and alert Psych: Normal Mood and Affect Result Diagram: 03/22/19224203/22/192242 Results 24 hrs Laboratory Tests Test 03/22/19 22:43 03/22/19 23:50 03/23/19 00:02 White Blood Count 10.5 10^3/ul Red Blood Count 3.77 10^6/ul Hemoglobin 12.9 g/dl Hematocrit 37.9 % Mean Corpuscular Volume 100.5 fl Mean Corpuscular Hemoglobin 34.2 pg Mean Corpuscular 34.0 g/dl Hemoglobin Concent Red Cell Distribution Width 13.1 % Platelet Count 154 10^3/UL Mean Platelet Volume 9.4 fl Immature Granulocytes % 0.300 % Neutrophils % 62.1 % Lymphocytes % 29.8 % Monocytes % 6.9 % Eosinophils % 0.6 % Basophils % 0.3 % Nucleated Red Blood Cells % 0.0 /100WBC Immature Granulocytes # 0.030 10^3/ul Neutrophils # 6.5 10^3/ul Lymphocytes # 3.1 10^3/ul Monocytes # 0.7 10^3/ul Eosinophils # 0.1 10^3/ul Basophils # 0.0 10^3/ul Nucleated Red Blood Cells # 0.0 10^3/ul Sodium Level 136 mmol/L Potassium Level 3.3 mmol/L Chloride Level 99 mmol/L Carbon Dioxide Level 26 mmol/L Anion Gap 11 Blood Urea Nitrogen 23 mg/dl Creatinine 1.82 mg/dl Est Glomerular Filtrat 29 mL/min Rate mL/min Glucose Level 107 mg/dl Calcium Level 9.4 mg/dl Total Bilirubin 0.8 mg/dl Direct Bilirubin 0.00 mg/dl Indirect Bilirubin 0.8 mg/dl Aspartate Amino 24 IU/L Transf (AST/SGOT) Alanine 16 IU/L Aminotransferase (ALT/SGPT) Alkaline Phosphatase 86 IU/L Total Protein 7.9 g/dl Albumin 4.4 g/dl Globulin 3.50 g/dl Albumin/Globulin Ratio 1.25 Salicylates Level < 1.0 mg/dl Acetaminophen Level < 10.0 ug/ml Ethyl Alcohol Level < 10.0 mg/dl Urine Color YELLOW Urine Clarity SLIGHTLY CLOUDY Urine pH 5.0 Urine Specific Arnett 1.011 Urine Ketones NEGATIVE mg/dL Urine Nitrite NEGATIVE mg/dL Urine Bilirubin NEGATIVE mg/dL Urine Urobilinogen NEGATIVE mg/dL Urine Leukocyte Esterase NEGATIVE Peter/ul Urine Microscopic RBC 2 /HPF Urine Microscopic WBC 3 /HPF Urine Bacteria FEW /HPF Urine Mucus FEW /HPF Urine Hemoglobin NEGATIVE mg/dL Urine Glucose NEGATIVE mg/dL Urine Total Protein NEGATIVE mg/dl Urine Opiates Screen Negative Urine Barbiturates Negative Urine Amphetamines Screen Positive Urine Benzodiazepines Screen Negative Urine Cocaine Screen Negative Urine Cannabinoids Negative POC Beta HCG, Qualitative NEGATIVE Current Medications Medications Dose Sig/Mayo Start Time Status Last (Trade) Ordered Route PRN Stop Time Admin Dose Reason Admin Sodium 1,000 ml @ Q1H STAT 03/22/19 DC 03/23/19 Chloride 1,000 mls/hr IV 22:21 00:18 03/22/19 23:20 Ondansetron 4 mg ONCE STAT 03/22/19 DC 03/23/19 HCl (Zofran IV 22:21 00:18 Inj) 03/22/19 22:23 Ketorolac 30 mg ONCE STAT 03/22/19 DC 03/23/19 Tromethamine IV 22:21 00:18 (Toradol) 03/22/19 22:23 Procedures/MDM Medical decision making: Patient's neurologic symptoms have stabilized while they have been evaluated in the department and are appropriate for outpatient work up. No e/o meningitis, intracranial bleed, seizure, stroke. amphetamine screen was positive. Counseled on stop using illicit drugs. Departure Diagnosis: Primary Impression: Headache Headache type: unspecified Headache chronicity pattern: unspecified pattern Intractability: not intractable Qualified Codes: R51 - Headache Condition: Stable Patient Instructions: Understanding Methamphetamine Abuse and Addiction, Headache, Unspecified MARIAJOSE VERDUZCO Mar 23, 2019 02:51
== END 2019-03-23 03:19 | disposition home or self-care (01) ==
LOC: E/R 19:06
DX: R51 Headache (principal); I10 Essential (primary) hypertension; F17.210 Nicotine dependence, cigarettes, uncomplicated; R40.2142 Coma scale, eyes open, spontaneous, at arrival to emergency department; R40.2252 Coma scale, best verbal response, oriented, at arrival to emergency department; R40.2362 Coma scale, best motor response, obeys commands, at arrival to emergency department
CPT/HCPCS: 36415; 80053; 80307; 81001; 81003; 81025; 85025; 96374; 96375; J1885; J2405; J7030; Z7502; Z7610; A4310